=== PATIENT | female | born 1945 | race Caucasian/White ===

== ENCOUNTER → 2021-10-28 | Outpatient (CLI) | payer MEDICARE, OTHER, SELFPAY ==
[2021-10-28 17:30] LABS: BNP,B-Type NATRIURETIC PEPTIDE 205.4 pg/mL (0-100)
== END | disposition home or self-care (01) ==
PROVIDERS: PCP Internal Medicine; Visit Provider Internal Medicine Cardiovascular Disease
DX: R06.02 Shortness of breath (principal)
CPT/HCPCS: 36415; 83880

== ENCOUNTER → 2021-10-30 | Outpatient (CLI) | payer MEDICARE, OTHER, SELFPAY ==
[2021-10-30 11:59] LABS: Absolute Lymphocyte Count 1.84 X10^3/uL (0.83-4.51); Absolute Neutrophil Count 3.1 X10^3/uL (2.0-7.7); Basophil# 0.08 X10^3/uL; Basophil% 1.2 % (0-1); Eosinophils% 7.8 % (0-5); Hematocrit 38.8 % (37-47); Hemoglobin 12.4 g/dL (12.0-15.0); Lymphocyte # 1.84 X10^3/ul (0.83-4.51); Lymphocyte % 28.7 % (19-41); Mean Corpuscular Hgb 31.2 pg (27.0-32.0); Mean Corpuscular Volume 97.5 fL (81-99); NRBC Flagged by Analyzer 0 % (0-5); Neutrophil # 3.07 X10^3/uL (2.7-7.7); Platelet Count 303 K/mm3 (150-450); RBC Distribution Width CV 12.9 % (11.6-14.6); RBC Distribution Width SD 46.5 fl (35.1-43.9); Red Blood Count 3.98 M/mm3 (4.2-5.4); White Blood Count 6.4 K/mm3 (4.4-11.0)
[2021-10-30 12:16] LABS: Vitamin B12 332 pg/mL (211-911)
[2021-10-30 12:31] LABS: ALB/GLOB Ratio 0.8 RATIO (0.9-2.4); AST(SGOT) 20 U/L (15-37); Alanine Aminotransfer ALT/SGPT 22 U/L (13-56); Albumin, Serum 3.3 g/dL (3.2-5.0); Alkaline Phosphatase 83 U/L (45-117); Anion Gap 7 (5-15); BUN 22 mg/dL (7-18); BUN/Creat Ratio 20.2 RATIO (10-20); Calcium,Total 8.9 mg/dL (8.5-10.1); Chloride 107 mmol/L (98-107); Cholesterol 183 mg/dL (200); Creatinine, Serum 1.09 mg/dL (0.55-1.02); EST Glomerular Filtration Rate 52 mL/min (>60); Est Glom Filt Rate - Afr Amer 63 mL/min (>60); Glucose 90 mg/dL (74-106); High Density Lipoprotein 68 mg/dL; Potassium 4.2 mmol/L (3.5-5.1); Protein, Total 7.3 g/dL (6.4-8.2); Sodium Level 139 mmol/L (136-145); Thyroid Stim Hormone (TSH) 1.85 uIU/mL (0.358-3.74); Triglycerides 81 mg/dL; Very Low Density Lipoprotein 16 mg/dL (5-40)
== END | disposition home or self-care (01) ==
LOC: BIMLAB 09:25
PROVIDERS: PCP Internal Medicine; Referring Provider Internal Medicine; Visit Provider Internal Medicine
DX: E03.9 Hypothyroidism, unspecified (principal); E53.8 Deficiency of other specified B group vitamins
CPT/HCPCS: 36415; 80053; 80061; 82607; 84443; 85025

== ENCOUNTER → 2021-11-02 | Outpatient (CLI) | payer MEDICARE, OTHER, SELFPAY | END | disposition home or self-care (01) | LOC: PSN 08:59 | PROVIDERS: PCP Internal Medicine; Referring Provider Internal Medicine Cardiovascular Disease; Visit Provider Internal Medicine Cardiovascular Disease | DX: R06.02 Shortness of breath (principal); I47.1 Supraventricular tachycardia | CPT/HCPCS: 93225; 93226 ==

== ENCOUNTER → 2021-11-10 | Outpatient (CLI) | payer MEDICARE, OTHER, SELFPAY ==
--- NOTE | 2021-11-10 17:19 | STRESSREP ---
Stress Test Report Pharmacologic myocardial perfusion stress test. 76-year-old lady with a history of chest pain. Stress protocol: Resting EKG demonstrates normal sinus rhythm with a rate of 71 bpm normal intervals are noted. 0.4 mg of regadenoson was infused per usual protocol followed by rapid venous and flush injection continuous EKG monitoring was performed. The maximum heart rate attained was 96 bpm which was 66% of max impacted heart rate. The maximum workload attained was 1 metabolic equivalent. At rest there were no ST or T wave changes noted to suggest ischemia and at peak exercise nonspecific ST changes were noted. The above did not meet the criteria for ischemia. The final blood pressure is 122/84 mmHg. The resting blood pressure was 132/86 mmHg. Myocardial perfusion protocol. 14.8 mCi of technetium 99m sestamibi was injected at rest. 0.4 mg of regadenoson was infused per usual protocol. At peak infusion 44.7 mCi of technetium 99m sestamibi was injected stress images were obtained stress and rest images were reconstructed and compared in the short axis vertical long and horizontal long axis. Gated images were also obtained. Perfusion SPECT analysis: Review of the stress images demonstrate normal uptake of tracer noted in all areas of the myocardium. The resting images similar demonstrate normal uptake of tracer noted in all areas of the myocardium. No areas of reversibility are noted to suggest ischemia and no previous infarct is noted. Gated SPECT analysis: The gated ejection fraction is 64%. Conclusion: Normal pharmacologic myocardial perfusion stress test. Preserved ejection fraction.
== END | disposition home or self-care (01) ==
LOC: CVS 06:10
PROVIDERS: PCP Internal Medicine; Visit Provider Internal Medicine Cardiovascular Disease
DX: R06.02 Shortness of breath (principal)
CPT/HCPCS: 78452; 93017; A9500; A4216; J2785

== ENCOUNTER → 2021-11-16 | Outpatient (CLI) | payer MEDICARE, OTHER, SELFPAY ==
--- NOTE | 2021-11-16 15:26 | RAD_ITS ---
STUDY: XR Elbow 2 Views REASON FOR EXAM: Female, 76 years old. PAIN History: fall with injuries Technologist Notes FELL FEW DAYS AGO AND CAUGHT HER SELF, PT COULD NOT MOVE ELBOW MUCH, BEST IMAGES POSSIBLE pain TECHNIQUE: XR Elbow 2 Views LEFT COMPARISON: None. FINDINGS: Normal visualized humerus, radius and ulna. Normal radiocapitellar and ulnotrochlear articulations. Anterior humeral line and radiocapitellar line are preserved. Positive fat pad sign, suggesting a radiographically occult fracture of the elbow. RAD/Elbow 2 Views IMPRESSION: Positive fat pad sign, suggesting a radiographically occult fracture of the elbow. Electronically Signed: Castro Priest MD at 18:33 EDT ,
--- NOTE | 2021-11-16 15:26 | RAD_ITS ---
EXAM: XR RIGHT FINGERS, 2 OR MORE VIEWS CLINICAL INDICATION: fall with injuries pain TECHNIQUE: Frontal, lateral and oblique views of the fingers of the right hand. This report was created using [employer] report generation technology. COMPARISON: None. FINDINGS: BONES/JOINTS: There is a comminuted fracture of the midshaft of the 1st metacarpal bone. There is degenerative arthrosis of the carpometacarpal articulation of the thumb. No sclerotic or destructive changes observed. SOFT TISSUES: Unremarkable. No soft tissue swelling or gas. No radiopaque foreign body. RAD/Finger(s) Min 2 Views IMPRESSION: There is a comminuted fracture of the midshaft of the 1st metacarpal bone. Electronically Signed: Castro Priest MD at 17:25 EDT Reading Location ID and State: [facility] / [place] , Service support ,
--- NOTE | 2021-11-16 15:40 | RAD_ITS ---
STUDY: X-RAY - UNILATERAL RIBS ( LEFT ) REASON FOR EXAM: Female, 76 years old. fall with injuries TECHNIQUE: 4 view(s) of the ribs. COMPARISON: None. FINDINGS: Normal visualized ribs without a demonstrated fracture. Small left pleural effusion and left lower lobe atelectasis. Acute impacted comminuted fracture of left humeral head and neck RAD/Ribs Unil 2V No CXR IMPRESSION: No evidence for acute fracture left rib cage. There is a small left pleural effusion and left lower lobe atelectasis There is an acute impacted comminuted fracture of left humeral head and neck Electronically Signed: Matty Fleming MD at 16:21 EDT ,
== END | disposition home or self-care (01) ==
LOC: RAD 15:25
PROVIDERS: PCP Internal Medicine; Referring Provider Nurse Practitioner Adult Health; Visit Provider Nurse Practitioner Adult Health
DX: S62.241A Displaced fracture of shaft of first metacarpal bone, right hand, initial encounter for closed fracture (principal); S42.342A Displaced spiral fracture of shaft of humerus, left arm, initial encounter for closed fracture; W19.XXXA Unspecified fall, initial encounter; Y92.009 Unspecified place in unspecified non-institutional (private) residence as the place of occurrence of the external cause; M25.522 Pain in left elbow
CPT/HCPCS: 71100; 73070; 73140

== ENCOUNTER → 2021-12-01 | Outpatient (REF) | payer SELFPAY ==
[2021-12-01 09:12] LABS: Absolute Lymphocyte Count 1.64 X10^3/uL (0.83-4.51); Absolute Neutrophil Count 9.7 X10^3/uL (2.0-7.7); Basophil# 0.05 X10^3/uL; Basophil% 0.4 % (0-1); Eosinophil# 0.25 X10^3/uL; Eosinophils% 1.8 % (0-5); Hematocrit 36.9 % (37-47); Hemoglobin 11.8 g/dL (12.0-15.0); Lymphocyte # 1.64 X10^3/ul (0.83-4.51); Lymphocyte % 11.7 % (19-41); Mean Corpuscular Volume 96.9 fL (81-99); Mean Platelet Vol. 11.7 fl (6.2-12.0); Monocyte# 2.25 X10^3/uL; Monocyte% 16.1 % (0-10); NRBC Flagged by Analyzer 0 % (0-5); Neutrophil # 9.74 X10^3/uL (2.7-7.7); Neutrophil % 69.4 % (47-70); POSITIVE DIFFERENTIAL YES; Platelet Count 303 K/mm3 (150-450); RBC Distribution Width CV 13.8 % (11.6-14.6); RBC Distribution Width SD 48.8 fl (35.1-43.9); Red Blood Count 3.81 M/mm3 (4.2-5.4)
[2021-12-01 09:13] LABS: Differential Indicated SCAN CRITERIA MET
[2021-12-02 12:57] LABS: Pathologist Review Reviewed
== END | disposition home or self-care (01) ==
LOC: OLS.WHLTCC 04:00
PROVIDERS: PCP Internal Medicine; Referring Provider Family Medicine; Visit Provider Family Medicine
DX: S42.295D Other nondisplaced fracture of upper end of left humerus, subsequent encounter for fracture with routine healing (principal); S62.291D Other fracture of first metacarpal bone, right hand, subsequent encounter for fracture with routine healing; D50.9 Iron deficiency anemia, unspecified
CPT/HCPCS: 36415; 85025

== ENCOUNTER → 2021-12-07 | Outpatient (CLI) | payer MEDICARE, OTHER, SELFPAY ==
--- NOTE | 2021-12-07 09:02 | ECHOD_ITS ---
Reason For Study: DYSPNEA/SOB Procedure This was a 2D Doppler, Color Flow transthoracic echocardiogram. The study was technically difficult. Contrast injection was performed. Exam performed in department. Left Ventricle Normal LV size. Left ventricular systolic function is normal. The estimated ejection fraction is 55 %. No regional wall motion abnormalities noted. Right Ventricle Normal RV size. Normal systolic function. Atria Normal left atrium. Normal right atrium. Mitral Valve Normal mitral valve. Tricuspid Valve Normal tricuspid valve. Aortic Valve Normal aortic valve. Pulmonic Valve The pulmonic valve is not well visualized. Great Vessels Normal aortic root. The pulmonary artery is normal size. Normal inferior vena cava. Pericardium/Pleural No pericardial effusion. Medication 22 gauge I.V. with prn adaptor inserted into right arm. Diluted definity 3ml given slow IV push to enhance endocardial definition. MMode/2D Measurements & Calculations LAV(MOD-sp4): 91.8 ml LA dimension(2D): 5.0 cm LA A4 area: 28.0 cm2 RA A4 area: 20.4 cm2 Doppler Measurements & Calculations Ao V2 max: 101.7 cm/sec LV V1 max: 99.2 cm/sec MR max carlos: 514.9 cm/sec Ao max P.2 mmHg LV V1 max P.0 mmHg MR max P.0 mmHg ECHO/Echo Complete W/ Contrast Interpretation Summary Normal LV size. Left ventricular systolic function is normal. The estimated ejection fraction is 55 %. Contrast injection was performed. The study was technically difficult. Ordering Physician: Flo East Referring Physician: Flo East Performed By: Jenny Contreras RCS
== END | disposition home or self-care (01) ==
LOC: CVS 09:01
PROVIDERS: PCP Internal Medicine; Referring Provider Internal Medicine Cardiovascular Disease; Visit Provider Internal Medicine Cardiovascular Disease
DX: I47.1 Supraventricular tachycardia (principal); R06.02 Shortness of breath
CPT/HCPCS: 93306; Q9957; A4216; C8929

== ENCOUNTER → 2021-12-09 | Outpatient (REF) | payer SELFPAY ==
[2021-12-09 09:24] LABS: Hematocrit 38.7 % (37-47); Hemoglobin 12.2 g/dL (12.0-15.0); Mean Corp Hgb Conc 31.5 g/dL (32-36); Mean Corpuscular Hgb 30.5 pg (27.0-32.0); Mean Corpuscular Volume 96.8 fL (81-99); Mean Platelet Vol. 10.8 fl (6.2-12.0); Platelet Count 447 K/mm3 (150-450); RBC Distribution Width CV 13.2 % (11.6-14.6); RBC Distribution Width SD 47.6 fl (35.1-43.9)
[2021-12-09 09:42] LABS: Anion Gap 4 (5-15); BUN 16 mg/dL (7-18); BUN/Creat Ratio 18.4 RATIO (10-20); Calcium,Total 9.4 mg/dL (8.5-10.1); Chloride 107 mmol/L (98-107); Creatinine, Serum 0.87 mg/dL (0.55-1.02); EST Glomerular Filtration Rate 67 mL/min (>60); Est Glom Filt Rate - Afr Amer 81 mL/min (>60); Glucose 90 mg/dL (74-106); Potassium 3.9 mmol/L (3.5-5.1); Sodium Level 139 mmol/L (136-145)
== END | disposition home or self-care (01) ==
LOC: OLS.WHLTCC 05:35
PROVIDERS: PCP Internal Medicine; Visit Provider Family Medicine
DX: S42.295D Other nondisplaced fracture of upper end of left humerus, subsequent encounter for fracture with routine healing (principal); S42.291D Other displaced fracture of upper end of right humerus, subsequent encounter for fracture with routine healing; D50.9 Iron deficiency anemia, unspecified
CPT/HCPCS: 36415; 80048; 85027

== ENCOUNTER → 2022-03-11 | Outpatient (CLI) | payer MEDICARE, OTHER, SELFPAY ==
--- NOTE | 2022-03-11 15:59 | BD_ITS ---
STUDY: DUAL ENERGY X-RAY ABSORPTIOMETRY / DXA REASON FOR EXAM: Female, 76 years old. [id number] TECHNIQUE: Bone Mineral Density (BMD) measurements of lumbar spine and bilateral hips were obtained. COMPARISON: None. FINDINGS: Lumbar Spine (L1-L4): g/cm2 (1.056) / T-score (0.4) / Z-score (2.8) Findings are suggestive of normal bone density with a low fracture risk. Left Femur Total: g/cm2 (0.749) / T-score (-1.6) / Z-score (0.3) Left Femoral Neck: g/cm2 (0.501) / T-score (-3.1) / Z-score (-1.0) Right Femur Total: g/cm2 (0.743) / T-score (-1.6) / Z-score (0.2) Right Femoral Neck: g/cm2 (0.588) / T-score (-2.4) / Z-score (-0.2) BD/Dexa Bone Density Study IMPRESSION: The patient is considered osteoporotic as outlined below according to World Harshil Organization (WHO) criteria with a high fracture risk. Reference Information: The T-score is the number of standard deviations above or below the standard which is normal for young adults at their peak bone mineral density. The World Health Organization (WHO) interprets the T-scores as follows: Above -1 Normal bone density Between -1 and -2.5 Osteopenia Equal to / or below -2.5 Osteoporosis As a practical clinical guideline, osteopenia may be graded as follows: Mild -1 through -1.5 Moderate -1.6 through -2.0 Severe -2.1 through -2.4 The Z-score is the number of standard deviations above or below age-matched controls. A Z-score of less than -1.5 would be considered abnormal. References: 1. NIH Osteoporosis and Related Bone Diseases www osteo.org 2. International Society for Clinical Densitometry www iscd.org 3. National Osteoporosis Foundation www nof.org Electronically Signed: Bret Quinn MD at 9:21 EDT ,
== END | disposition home or self-care (01) ==
LOC: OPBD 15:51
PROVIDERS: PCP Internal Medicine; Visit Provider Internal Medicine
DX: M81.0 Age-related osteoporosis without current pathological fracture (principal); Z78.0 Asymptomatic menopausal state
CPT/HCPCS: 77080

== ENCOUNTER → 2022-04-27 | Outpatient (CLI) | payer MEDICARE, OTHER, SELFPAY ==
[2022-04-27 17:24] LABS: Vitamin D,25 Hydroxy 20.2 ng/mL
== END | disposition home or self-care (01) ==
PROVIDERS: PCP Internal Medicine; Referring Provider Internal Medicine; Visit Provider Internal Medicine
DX: E55.9 Vitamin D deficiency, unspecified (principal)
CPT/HCPCS: 36415; 82306

== ENCOUNTER → 2022-12-17 | Outpatient (CLI) | payer MEDICARE, OTHER, SELFPAY ==
[2022-12-17 12:32] LABS: Absolute Neutrophil Count 4.4 X10^3/uL (2.0-7.7); Basophil% 1.2 % (0-1); Eosinophil# 0.72 X10^3/uL; Eosinophils% 8.9 % (0-5); Hematocrit 40.4 % (37-47); Hemoglobin 12.9 g/dL (12.0-15.0); Lymphocyte % 23.6 % (19-41); Mean Corp Hgb Conc 31.9 g/dL (32-36); Mean Corpuscular Hgb 32.2 pg (27.0-32.0); Mean Corpuscular Volume 100.7 fL (81-99); Mean Platelet Vol. 10.7 fl (6.2-12.0); Monocyte# 0.89 X10^3/uL; Monocyte% 11.1 % (0-10); NRBC Flagged by Analyzer 0 % (0-5); Neutrophil # 4.42 X10^3/uL (2.7-7.7); Platelet Count 372 K/mm3 (150-450); RBC Distribution Width SD 48.7 fl (35.1-43.9); Red Blood Count 4.01 M/mm3 (4.2-5.4); White Blood Count 8.1 K/mm3 (4.4-11.0)
[2022-12-17 14:54] LABS: ALB/GLOB Ratio 0.7 RATIO (0.9-2.4); AST(SGOT) 18 U/L (15-37); Alanine Aminotransfer ALT/SGPT 21 U/L (13-56); Albumin, Serum 3.1 g/dL (3.2-5.0); Alkaline Phosphatase 80 U/L (45-117); Anion Gap 5 (5-15); BUN 21 mg/dL (7-18); BUN/Creat Ratio 17.2 RATIO (10-20); Chloride 106 mmol/L (98-107); Cholesterol 212 mg/dL (200); Creatinine, Serum 1.22 mg/dL (0.55-1.02); EST Glomerular Filtration Rate 45 mL/min (>60); Est Glom Filt Rate - Afr Amer 55 mL/min (>60); Globulin 4.4 g/dL (2.2-4.2); Glucose 93 mg/dL (74-106); High Density Lipoprotein 65 mg/dL; Potassium 4.9 mmol/L (3.5-5.1); Protein, Total 7.5 g/dL (6.4-8.2); Sodium Level 137 mmol/L (136-145); Thyroid Stim Hormone (TSH) 6.36 uIU/mL (0.358-3.74); Triglycerides 120 mg/dL; Very Low Density Lipoprotein 24 mg/dL (5-40)
[2022-12-17 14:55] LABS: Vitamin D,25 Hydroxy 45.1 ng/mL
== END | disposition home or self-care (01) ==
LOC: BIMLAB 10:11
PROVIDERS: PCP Internal Medicine; Referring Provider Internal Medicine; Visit Provider Internal Medicine
DX: M81.0 Age-related osteoporosis without current pathological fracture (principal); E03.9 Hypothyroidism, unspecified; E66.9 Obesity, unspecified
CPT/HCPCS: 36415; 80053; 80061; 82306; 84443; 85025

== ENCOUNTER → 2023-01-21 | Outpatient (CLI) | payer MEDICARE, OTHER, SELFPAY ==
[2023-01-21 17:48] LABS: Anion Gap 2 (5-15); BUN 22 mg/dL (7-18); BUN/Creat Ratio 20.2 RATIO (10-20); Calcium,Total 8.7 mg/dL (8.5-10.1); Chloride 110 mmol/L (98-107); Creatinine, Serum 1.09 mg/dL (0.55-1.02); EST Glomerular Filtration Rate 52 mL/min (>60); Est Glom Filt Rate - Afr Amer 63 mL/min (>60); Glucose 81 mg/dL (74-106); Potassium 4.1 mmol/L (3.5-5.1); Sodium Level 140 mmol/L (136-145); Thyroid Stim Hormone (TSH) 6.01 uIU/mL (0.358-3.74)
== END | disposition home or self-care (01) ==
LOC: MTLAB 15:33
PROVIDERS: PCP Internal Medicine; Referring Provider Internal Medicine; Visit Provider Internal Medicine
DX: E03.9 Hypothyroidism, unspecified (principal)
CPT/HCPCS: 36415; 80048; 84443

== ENCOUNTER → 2023-02-23 | Outpatient (CLI) | payer MEDICARE, OTHER, SELFPAY ==
[2023-02-23 15:12] LABS: Absolute Lymphocyte Count 2.11 X10^3/uL (0.83-4.51); Absolute Neutrophil Count 4.5 X10^3/uL (2.0-7.7); Basophil# 0.07 X10^3/uL; Basophil% 0.8 % (0-1); Eosinophil# 0.71 X10^3/uL; Eosinophils% 8.6 % (0-5); Hematocrit 40.8 % (37-47); Hemoglobin 12.5 g/dL (12.0-15.0); Lymphocyte # 2.11 X10^3/ul (0.83-4.51); Lymphocyte % 25.5 % (19-41); Mean Corp Hgb Conc 30.6 g/dL (32-36); Mean Corpuscular Hgb 31.6 pg (27.0-32.0); Mean Corpuscular Volume 103.3 fL (81-99); Mean Platelet Vol. 11.1 fl (6.2-12.0); Monocyte% 10.9 % (0-10); NRBC Flagged by Analyzer 0 % (0-5); Neutrophil # 4.46 X10^3/uL (2.7-7.7); Neutrophil % 54.1 % (47-70); Platelet Count 347 K/mm3 (150-450); RBC Distribution Width CV 12.7 % (11.6-14.6); RBC Distribution Width SD 48.8 fl (35.1-43.9); Red Blood Count 3.95 M/mm3 (4.2-5.4); White Blood Count 8.3 K/mm3 (4.4-11.0)
[2023-02-23 16:01] LABS: ALB/GLOB Ratio 0.7 RATIO (0.9-2.4); AST(SGOT) 17 U/L (15-37); Alanine Aminotransfer ALT/SGPT 22 U/L (13-56); Albumin, Serum 3.1 g/dL (3.2-5.0); Alkaline Phosphatase 78 U/L (45-117); Anion Gap 4 (5-15); BUN 27 mg/dL (7-18); BUN/Creat Ratio 20.3 RATIO (10-20); Calcium,Total 8.8 mg/dL (8.5-10.1); Chloride 109 mmol/L (98-107); Creatinine, Serum 1.33 mg/dL (0.55-1.02); EST Glomerular Filtration Rate 41 mL/min (>60); Est Glom Filt Rate - Afr Amer 50 mL/min (>60); Globulin 4.4 g/dL (2.2-4.2); Glucose 108 mg/dL (74-106); Potassium 4.5 mmol/L (3.5-5.1); Protein, Total 7.5 g/dL (6.4-8.2); Sodium Level 140 mmol/L (136-145); T4 Free Direct 1.81 ng/dL (0.76-1.46); Thyroid Stim Hormone (TSH) 0.56 uIU/mL (0.358-3.74)
[2023-02-23 19:57] LABS: T3 Total - Triiodothyronine 0.94 ng/mL (0.6-1.81); Vitamin B12 360 pg/mL (211-911)
== END | disposition home or self-care (01) ==
LOC: BIMLAB 13:50
PROVIDERS: PCP Internal Medicine; Referring Provider Internal Medicine; Visit Provider Internal Medicine
DX: E03.9 Hypothyroidism, unspecified (principal); R53.83 Other fatigue; R20.0 Anesthesia of skin
CPT/HCPCS: 36415; 80053; 82607; 84439; 84443; 84480; 85025

== ENCOUNTER → 2023-02-24 | Outpatient (CLI) | payer MEDICARE, OTHER, SELFPAY ==
--- NOTE | 2023-02-24 10:42 | RAD_ITS ---
INDICATION: leg pain, swelling EXAMINATION/TECHNIQUE: X-RAY - LEFT XR Knee 3 Views COMPARISON: FINDINGS: SOFT TISSUES: No soft tissue swelling or gas. No radiopaque foreign body. BONES/JOINTS: No acute fracture or subluxation.. There are 3 orthopedic screws noted through the proximal tibia. Degenerative spurring at the femorotibial and patellofemoral compartments. Diffuse joint space narrowing at the femorotibial compartments. Generalized osteopenia. RAD/Knee 3 Views IMPRESSION: Degenerative and postsurgical changes. Generalized osteopenia. Electronically Signed: Sarath Valdez DO at 17:31 EDT Reading Location ID and State: [facility] / [place] Tel [phone], Service support ,
== END | disposition home or self-care (01) ==
LOC: MTLAB 10:41
PROVIDERS: PCP Internal Medicine; Referring Provider Internal Medicine; Visit Provider Internal Medicine
DX: M79.605 Pain in left leg (principal)
CPT/HCPCS: 73562

== ENCOUNTER → 2023-03-11 | Outpatient (CLI) | payer MEDICARE, OTHER, SELFPAY ==
--- NOTE | 2023-03-11 15:03 | VDLE_ITS ---
Reason For Study: Left leg swelling Procedure LEFT This is a venous duplex using B-mode, color GSV is normal. flow and spectral Doppler. CFV is compressible, spontaneous, phasic, Exam performed in department. competent, and demonstrates normal Technically difficult due to patient augmentation. bodyhabitus and edema. FV is compressible, spontaneous, phasic, A preliminary report was called and/or faxed competent and demonstrates normal to Dr. Mathews. augmentation. POP V is compressible, spontaneous, phasic, competent and demonstrates normal augmentation. T/P Trunk is compressible. PTV is compressible. LT PerV is compressible. VL/Venous Duplex US, Unilateral Interpretation Summary Deep veins of the left lower extremity are patent and compressible segmentally. There is no evidence of left lower extremity deep vein thrombosis. The left great saphenous vein nael ears patent and compressible segmentally. Ordering Physician: Anneliese Mathews Referring Physician: Calista Yeh Performed By: Romy Joshi RVT
[2023-03-11 16:55] LABS: Thyroid Stim Hormone (TSH) 0.53 uIU/mL (0.358-3.74)
== END | disposition home or self-care (01) ==
PROVIDERS: PCP Internal Medicine; Visit Provider Internal Medicine
DX: M79.89 Other specified soft tissue disorders (principal); E03.9 Hypothyroidism, unspecified
CPT/HCPCS: 36415; 82746; 84443; 93971

== ENCOUNTER 2023-11-01 12:52 | Outpatient (RCR) | payer MEDICARE, OTHER, SELFPAY ==
--- NOTE | 2023-11-08 08:00 | HP.OTEVAL_ITS ---
Patient's Visit Information Visit Information Visit Information: BERNARD ENG is a 78 year old F, referred to Occupational Therapy by HENRRY Dodson, with a diagnosis of venous insufficiency BLE, lymphedema. Date of Evaluation: 11/01/23 Occupational Therapist: Saima Harper, ERMA/Ronna, CHT Subjective Subjective: This 78 year old female was seen for OT eval with dx of LE lymphedema. Family with pt today. pt states she has had swelling for about a year and a half- sleeps in recliner ( lift chair) due to other health issues. Pt states she has noticed legs are getting firm and the swelling does not change- pt would like to know what she ca n do to decrease edema of her legs. Lymphedema (Circumferential Measure) Mid-foot: right 23.5cm left 23.5cm Ankle: right 27cm left 28cm Lower calf: right 28cm left 40.5cm Largest calf: right 51cm left 55cm Below knee: right 51cm left 56cm Lower Exremity Comments: pt demo with firmness of bilateral LE indication of stage II lymphedema Goals Goal: Patient will demonstrate a 20% reduction in edema by discharge: Yes Goal: Patient will demonstrate adequate knowledge of self-massage by the end of the second week.: Yes Goal: Patient will demonstrate adequate knowledge of skin care and precautions by the end of the first week.: Yes Goal: Patient will demonstrate adequate knowledge of therapeutic exercises by discharge.: Yes Goal: Patient will select an appropriate compression garment and demonstrate adequate knowledge of correct donning technique, care and wearing schedule by discharge.: Yes Goal: Patient will voice understanding of need to replace compression garment every four to six months by discharge.: Yes Rehabilitation General Assessment: pt demo with symptoms of BLE lymphedema and demo need of skilled OT services 3-4 visits to ed. pt on life long mtg. of edema. Today therapist ed. pt on skin care, precautions and use of compression devices (velcro closure) as compression socks are difficult for pt to put on. Therapist also ed. pt on movement and lymph ex to assist in circulation of fluid. pt demo understanding and agree to POC. Rehabilitation Potential: Questionable Anticipated Interventions Anticipated Interventions: Education re Diagnosis, Education re Life-long lymphedema Management, Education re Skin Care and Precautions, Education re Self Massage Techniques, Education re Correct Donning Tech,Care&Wearing Sched Comp Garments, Caregiver Training and Home Program Visit Plan TEXT: Thank you for the opportunity to evaluate your patient. For Medicare and Medicare HMO plans, please review the plan of care and approve it. It will need to be FAXED BACK to us at [phone] for Medicare purposes. Please let me know if there are questions or concerns regarding this plan of care. Physician Signature: Date:
== END 2023-11-01 19:00 | disposition home or self-care (01) ==
LOC: OT 12:52
PROVIDERS: PCP Internal Medicine; Referring Provider Nurse Practitioner; Visit Provider Nurse Practitioner
DX: I87.2 Venous insufficiency (chronic) (peripheral) (principal); I89.0 Lymphedema, not elsewhere classified
CPT/HCPCS: 97166; 97530

== ENCOUNTER → 2023-12-07 | Outpatient (CLI) | payer MEDICARE, OTHER, SELFPAY ==
[2023-12-07 12:18] LABS: Absolute Lymphocyte Count 1.99 X10^3/uL (0.83-4.51); Absolute Neutrophil Count 4.2 X10^3/uL (2.0-7.7); Basophil# 0.09 X10^3/uL; Basophil% 1.1 % (0-1); Eosinophil# 0.68 X10^3/uL; Eosinophils% 8.7 % (0-5); Hematocrit 40.4 % (37-47); Hemoglobin 12.8 g/dL (12.0-15.0); Lymphocyte # 1.99 X10^3/ul (0.83-4.51); Lymphocyte % 25.4 % (19-41); Mean Corp Hgb Conc 31.7 g/dL (32-36); Mean Corpuscular Hgb 32.2 pg (27.0-32.0); Mean Corpuscular Volume 101.5 fL (81-99); Mean Platelet Vol. 10.8 fl (6.2-12.0); Monocyte# 0.91 X10^3/uL; Monocyte% 11.6 % (0-10); NRBC Flagged by Analyzer 0 % (0-5); Neutrophil # 4.15 X10^3/uL (2.7-7.7); Neutrophil % 52.8 % (47-70); Platelet Count 356 K/mm3 (150-450); RBC Distribution Width CV 13.2 % (11.6-14.6); Red Blood Count 3.98 M/mm3 (4.2-5.4); White Blood Count 7.9 K/mm3 (4.4-11.0)
[2023-12-07 12:21] LABS: Vitamin D,25 Hydroxy 47.4 ng/mL
[2023-12-07 12:45] LABS: ALB/GLOB Ratio 0.6 RATIO (0.9-2.4); AST(SGOT) 20 U/L (15-37); Alanine Aminotransfer ALT/SGPT 21 U/L (13-56); Albumin, Serum 3.1 g/dL (3.2-5.0); Alkaline Phosphatase 66 U/L (45-117); Anion Gap 7 (5-15); BUN 20 mg/dL (7-18); BUN/Creat Ratio 15.7 RATIO (10-20); Calcium,Total 9.2 mg/dL (8.5-10.1); Chloride 108 mmol/L (98-107); Cholesterol 190 mg/dL (200); Creatinine, Serum 1.27 mg/dL (0.55-1.02); EST Glomerular Filtration Rate 43 mL/min (>60); Est Glom Filt Rate - Afr Amer 52 mL/min (>60); Globulin 4.8 g/dL (2.2-4.2); Glucose 88 mg/dL (74-106); High Density Lipoprotein 53 mg/dL; Potassium 4.5 mmol/L (3.5-5.1); Protein, Total 7.9 g/dL (6.4-8.2); Sodium Level 139 mmol/L (136-145); Triglycerides 152 mg/dL; Very Low Density Lipoprotein 30 mg/dL (5-40)
== END | disposition home or self-care (01) ==
LOC: BIMLAB 09:12
PROVIDERS: PCP Internal Medicine; Referring Provider Internal Medicine; Visit Provider Internal Medicine
DX: E03.9 Hypothyroidism, unspecified (principal); F41.9 Anxiety disorder, unspecified; F32.A Depression, unspecified; M85.80 Other specified disorders of bone density and structure, unspecified site
CPT/HCPCS: 80053; 80061; 82306; 84443; 85025

== ENCOUNTER → 2024-03-09 | Outpatient (CLI) | payer MEDICARE, OTHER, SELFPAY ==
--- NOTE | 2024-03-09 14:14 | RAD_ITS ---
STUDY: X-RAY CHEST REASON FOR EXAM: Female, 78 years old. Cough TECHNIQUE: PA and lateral views of the chest. COMPARISON: None. FINDINGS: The lungs are clear and expanded. There is no demonstrated pleural abnormality. Normal size heart. Normal mediastinum and elida. Normal visualized pulmonary arteries. There is atherosclerotic tortuosity of the aortic arch and descending thoracic aorta. There are degenerative changes of the visualized thoracic spine. Normal visualized ribs, clavicles, and shoulders. There is no demonstrated abnormality of the visualized soft tissue structures of the upper abdomen. RAD/Chest PA and Lateral IMPRESSION: No acute abnormality is seen. Electronically Signed: Bret Quinn MD at 15:32 EDT ,
== END | disposition home or self-care (01) ==
LOC: MTRAD 14:14
PROVIDERS: PCP Internal Medicine; Referring Provider Physician Assistant Surgical; Visit Provider Physician Assistant Surgical
DX: J40 Bronchitis, not specified as acute or chronic (principal)
CPT/HCPCS: 71046

== ENCOUNTER 2024-04-18 17:25 | Inpatient (IN) | payer MEDICARE, OTHER, SELFPAY ==
[2024-04-18] VITALS (24 sets, daily range): BP systolic 98–173; BP diastolic 70–135; PULSE 64–81; RESP 8–65; TEMP 36.4–36.6; O2SAT 17–100; BMI 65.3
--- NOTE | 2024-04-18 17:38 | ED.VIS.DYS ---
HPI History of Present Illness Chief Complaint: Shortness of Breath Informant: patient and family Onset/Context/Timing Onset: Yesterday Context: gradual Timing: Continuous Quality: Positive for Dyspnea on exertion and Orthopnea Worsened by: Exertion and Lying flat Relieved by: Nothing Associated Symptoms fever and subjective; Negative for cough, rhinorrhea, post nasal drip, ear pain, sore throat, chills, sweats, clear sputum, white sputum, yellow sputum or green sputum Chest Pain: Positive for None Narrative Narrative: Patient presents with shortness of breath that began yesterday. Patient states it is gradually getting worse. Patient states her breathing is worse with any exertion. Family states the patient has been sleeping in a recliner. Patient states her breathing is worse with laying flat. Patient admits to some subjective fevers. Family states that she has been having worsening leg swelling and itching. Patient denies any cough. Patient denies any nausea or vomiting. Patient denies any chest pain. [facility] Medical History Anxiety and depression Incontinence Debility Chronic left shoulder pain Osteoporosis Multiple premature ventricular complexes Venous insufficiency of both lower extremities ADD (attention deficit disorder) Chronic back pain Obesity Anemia Shoulder pain with history of repair of rotator cuff Tibial plateau fracture, left Keloid of skin Ptosis of both eyelids History of fracture due to fall Fracture of left upper limb History of tibial fracture Vitamin B 12 deficiency Iron deficiency anemia Other specified disorders of bone density and structure, unspecified site Allergic rhinitis ADHD History of fractured kneecap Uses hearing aid Hearing impairment History of migraine headaches Home Medications ?Medication ?Instructions ?Recorded ?Last Taken ?Type aspirin 81 mg tablet,delayed 81 mg PO DAILY 10/06/21 Unknown History release (Adult Low Dose Aspirin) duloxetine 60 mg capsule,delayed 60 mg PO DAILY 10/06/21 Unknown History release (Cymbalta) [id number] acid 0.4 1 tab PO DAILY 10/06/21 Unknown History mg-lycopene 300 mcg-lutein 250 mcg tablet (Centrum Silver) acetaminophen 500 mg tablet 1,000 mg PO TID PRN fever or pain 10/23/21 Unknown History celecoxib 200 mg capsule (Celebrex) 200 mg PO DAILY pain 02/23/23 Unknown History calcium carbonate (Antacid 400 mg PO DAILY 04/01/23 Unknown History (calcium carbonate)) moa deidrae #2 ea 04/01/23 Unknown Rx arm brace #1 ea 04/13/23 Unknown Rx arm brace #1 ea 04/15/23 Unknown Rx ergocalciferol (vitamin D2) 1,250 1,250 mcg PO QWEEK #20 caps 09/20/23 Unknown Rx mcg (50,000 unit) capsule semaglutide (weight loss) 0.25 0.25 mg (0.5 mL) subcut QWEEK #2 mL 12/07/23 Unknown Rx mg/0.5 mL subcutaneous pen injector sumatriptan succinate 25 mg tablet See Rx Instructions PO .COMPLEX 02/02/24 Unknown Rx (Imitrex) #14 tabs alendronate 70 mg tablet 70 mg PO QWEEK #14 tabs 02/28/24 Unknown Rx levothyroxine 200 mcg tablet 200 mcg PO DAILY #14 tabs 04/18/24 Unknown Rx (Synthroid) Allergy/AdvReac Type Severity Reaction Status Date / Time No Known Allergies Allergy Verified 04/18/24 17:26 Family History Father Sudden cardiac , Onset Age: 59 Alcoholism Mother Type II diabetes mellitus Lymphoma Arthritis Brother Sudden cardiac , Onset Age: 49 Grandmother Type II diabetes mellitus Grandmother Type II diabetes mellitus Surgical History Hx of cholecystectomy History of left knee surgery History of arthroscopy of right knee History of gastric bypass Social History adopted: No household members: none housing: assisted living facility number of children: 4 current occupational status: retired current occupational exposures/hazards: No history of recent travel: No sexually active: No Smoking Status: Never smoker alcohol intake: current alcohol intake frequency: holidays/special occasions only details: One drink per year. substance use type: does not use well-balanced diet: daily or most days caffeine: Yes Type: coffee Number of servings: 2 eating out: 1-3 times/week during the past year weight has: increased > 10 lbs what type of physical activity do you participate in: none seatbelt use: always do you feel safe at home: Yes ROS ROS ED Constitutional Constitutional ED: Reports fever(s); Denies chills Eyes Eyes: Denies blurry vision or change in vision ENT ENT ED: Denies rhinorrhea or sore throat Cardiovascular Cardiovascular: Denies chest pain or palpitations Respiratory/Chest Respiratory/Chest: Reports dyspnea; Denies cough Gastrointestinal Gastrointestinal: Denies nausea or vomiting Genitourinary Genitourinary ED: Denies dysuria or hematuria Musculoskeletal Musculoskeletal: Denies back pain or neck pain Integumentary Denies abscess or rash Neurologic Neurologic: Reports headache(s); Denies weakness Allergic/Immunologic Allergic/Immunologic ED: Denies mouth swelling or urticaria EXAM Physical Exam Const Vital Signs: 04/18/24 17:26 04/18/24 18:19 04/18/24 18:28 Temperature 98 F 97.5 F L Temperature Source Oral Oral Pulse Rate 81 75 Respiratory Rate 16 65 H Respiratory Effort Normal Blood Pressure 171/70 H 98/75 Blood Pressure Mean 103 82 Pulse Ox 99 17 Oxygen Delivery Method Room Air Room Air Room Air 04/18/24 18:51 04/18/24 19:00 04/18/24 19:00 Temperature 97.5 F L Temperature Source Oral Pulse Rate 66 75 74 Respiratory Rate 17 22 H 15 Respiratory Effort Blood Pressure 162/91 H 173/93 H Blood Pressure Mean 114 116 Pulse Ox 100 97 100 Oxygen Delivery Method Room Air 04/18/24 19:15 04/18/24 19:15 04/18/24 19:15 Temperature Temperature Source Pulse Rate 66 66 66 Respiratory Rate 23 H 23 H 23 H Respiratory Effort Blood Pressure 162/91 H 162/91 H Blood Pressure Mean 102 102 Pulse Ox 99 99 99 Oxygen Delivery Method 04/18/24 19:30 04/18/24 19:45 04/18/24 20:00 Temperature 97.6 F L Temperature Source Oral Pulse Rate 64 68 75 Respiratory Rate 15 8 L 18 Respiratory Effort Blood Pressure 119/75 Blood Pressure Mean 89 Pulse Ox 100 100 96 Oxygen Delivery Method Room Air 04/18/24 20:00 04/18/24 20:09 04/18/24 20:15 Temperature Temperature Source Pulse Rate 67 75 79 Respiratory Rate 19 H 15 19 H Respiratory Effort Blood Pressure 119/83 H Blood Pressure Mean 91 Pulse Ox 98 97 98 Oxygen Delivery Method 04/18/24 20:30 04/18/24 20:45 04/18/24 20:45 Temperature 97.6 F L Temperature Source Oral Pulse Rate 78 76 73 Respiratory Rate 14 16 17 Respiratory Effort Blood Pressure 119/83 H Blood Pressure Mean 95 Pulse Ox 97 99 98 Oxygen Delivery Method Room Air 04/18/24 21:00 04/18/24 21:15 04/18/24 21:30 Temperature Temperature Source Pulse Rate 69 71 72 Respiratory Rate 10 L 12 17 Respiratory Effort Blood Pressure 139/77 H Blood Pressure Mean 95 Pulse Ox 92 94 95 Oxygen Delivery Method 04/18/24 21:45 04/18/24 22:00 04/18/24 22:15 Temperature Temperature Source Pulse Rate 70 80 72 Respiratory Rate 15 18 16 Respiratory Effort Blood Pressure 155/80 H Blood Pressure Mean 102 Pulse Ox 96 96 94 Oxygen Delivery Method 04/18/24 22:30 04/18/24 22:45 04/18/24 23:00 Temperature Temperature Source Pulse Rate 76 72 Respiratory Rate 19 H 16 Respiratory Effort Blood Pressure 160/135 H Blood Pressure Mean 145 Pulse Ox 95 96 Oxygen Delivery Method 04/18/24 23:15 04/19/24 00:25 Temperature 97.7 F L Temperature Source Pulse Rate 74 75 Respiratory Rate 19 H 18 Respiratory Effort Blood Pressure 158/80 H Blood Pressure Mean 106 Pulse Ox 95 94 Oxygen Delivery Method Positive well nourished and well developed General Appearance ED: well developed and NAD HEENT Reports moist mucous membranes atraumatic Neck supple, no meningeal signs and no JVD Resp normal respiratory effort Auscultation: diminished lung sounds diffuse Cardio regular rate and regular rhythm Rhythm: abnormal rhythm ectopic beats GI non-tender and non-distended Palpation: soft Extremity General Extremety ED: Yes edema and tenderness General Extremity: edema Neuro oriented x3, CN's II-XII intact bilaterally and no sensory deficits noted Dileep Coma Scale: document GCS findings Spontaneous Obeys Commands Oriented 15 Sensorium / Orientation: alert Motor Exam: strength 5/5 throughout Psych mental status grossly normal Skin Skin Narrative: There is some mild erythema over the lower leg bilaterally. There is minimal warmth. There is no discharge or drainage. MDM MDM MDM Narrative Medical decision making narrative: Differential diagnosis includes cardiac dysrhythmia, cardiac ischemia, congestive heart failure, pneumonia, pulmonary embolism, acute kidney injury, peripheral edema, and anxiety. EKG will be obtained to assess for cardiac dysrhythmia and cardiac ischemia. Chest x-ray will be obtained to assess for pneumonia and pneumothorax. CBC will be obtained to assess for leukocytosis and anemia. PT was INR and PTT will be obtained to assess for coagulopathy. Basic metabolic profile will be obtained to assess for electrolyte abnormality and renal function. High-sensitivity troponin will be obtained to assess for cardiac ischemia. D-dimer will be obtained to assess for pulmonary embolism. BNP will be obtained to assess for congestive heart failure. Lab Data Attestation: I reviewed the patient's lab results. Lab results narrative: CBC was reviewed. There is a mild anemia with a hemoglobin of 11.4 and hematocrit of 35.3. Basic metabolic profile was reviewed. Creatinine was slightly elevated at 1.25 and BUN was slightly elevated at 22. The remainder was essentially within normal limits. PT with INR and PTT were reviewed and were within normal limits. D-dimer was reviewed and was elevated at 2.53. High-sensitivity troponin was reviewed with normal at 10. BNP was reviewed and was slightly elevated at 264.6 Labs: Laboratory Results - last 24 hr 04/18/24 17:55 WBC 9.6 RBC 3.53 L Hgb 11.4 L Hct 35.3 L MCV 100.0 H MCH 32.3 H MCHC 32.3 RDW Std Deviation 51.5 H RDW Coeff of Stephanie 13.9 Plt Count 343 MPV 10.2 Immature Gran % (Auto) 0.500 Neut % (Auto) 54.4 Lymph % (Auto) 23.1 [place] % (Auto) 10.3 H Eos % (Auto) 10.8 H Baso % (Auto) 0.9 Absolute Neuts (auto) 5.2 Absolute Lymphs (auto) 2.22 Nucleated RBC % 0 PT 13.3 INR 1.0 APTT 25.2 D-Dimer Quant (PE/DVT) 2.53 H* Sodium 139 Potassium 4.5 Chloride 111 H Carbon Dioxide 23.0 Anion Gap 6 BUN 22 H Creatinine 1.25 H Estim Creat Clear Calc 57.60 Est GFR (MDRD) Af Amer 53 L Est GFR (MDRD) Non-Af 44 L BUN/Creatinine Ratio 17.6 Glucose 93 Calcium 9.2 Troponin I High Sens 10 B-Natriuretic Peptide 264.6 H Radiography Chest X-Ray - ED: 2 View, Read by ED Physician, Read by Radiologist and Cardiomegaly Diagnostic Testing: Clinical Impression(s) from Imaging Studies Chest X-Ray 04/18/24 18:20 IMPRESSION: 1. Cardiac silhouette upper limit of normal and central vascular congestion noted without krista congestive failure. 2. No focal infiltrate or consolidation. Electronically Signed: Anthony Rubio MD at 18:56 EST , Chest CTA 04/18/24 19:16 IMPRESSION: undefined PA and lateral chest x-ray was obtained. There are 2 views. On my independent interpretation, lung powell show increased vascular congestion in the perihilar areas bilaterally but there is no overt congestive heart failure. There is no acute infiltrate. There is normal cardiac silhouette. Bony thorax is normal. Radiologist also interpreted the x-ray and agrees. Because of the elevated D-dimer, CTA of the chest was obtained. There is no pulmonary embolism or aortic dissection noted. There is normal appearance of the heart and pericardium. There is no other acute abnormality. This was interpreted by the radiologist and was also independently reviewed by myself. EKG Initial EKG: Attestation: I personally reviewed and interpreted this EKG as follows: Interpretation: Sinus Rhythm (With occasional PACs with a rate of 65) and No Acute Injury Pattern Comments: EKG was obtained. On my independent interpretation, it showed a normal sinus rhythm with occasional PACs with a rate of 65. IA interval, QRS interval, and QTc intervals were all normal. [place] was normal. There are no acute ST or T wave changes. Prior EKG tracings: available for review Prior: Unchanged (From stress test from 11/10/2021) Management Discussion w/another healthcare provider: Hospitalist Treatment and Re-Evaluation :: Patient was given a dose of morphine and Zofran here. Patient was given a dose of Lasix. Patient had a urine output of approximately 500 cc of clear yellow urine. Patient was given nitroglycerin paste. Patient was ambulated in the emergency department and her pulse oximeter dropped to 88% and her respiratory rate went up to 30. Because of this, I recommended admission to the hospital. Case was discussed with the hospitalist. He will admit the patient to PCU for observation. Patient and family understood and were agreeable with the plan. All questions were answered. Discharge Plan Triage Chief Complaint: Shortness of Breath ED Provider: Prakash Felipe Dx/Rx/DC Orders Clinical Impression: Lymphedema, Anemia, Dyspnea on exertion, Generalized weakness Prescriptions: No Action duloxetine [Cymbalta] 60 mg capsule,delayed release(DR/EC) 60 mg PO DAILY aspirin [Adult Low Dose Aspirin] 81 mg tablet,delayed release (DR/EC) 81 mg PO DAILY Centrum Silver 0.4 mg-300 mcg- 250 mcg tablet 1 tab PO DAILY acetaminophen 500 mg tablet 1,000 mg PO TID PRN (Reason: fever or pain) calcium carbonate [Antacid (calcium carbonate)] 200 mg calcium (500 mg) tablet,chewable 400 mg PO DAILY celecoxib [Celebrex] 200 mg capsule 200 mg PO DAILY (DME) juxta lite See Rx Instructions .Route .MEDSUPPLY Qty: 2 3RF Rx Instructions: 20 -30 mmHg semaglutide (weight loss) 0.25 mg/0.5 mL pen injector 0.25 mg subcut QWEEK Qty: 2 0RF Rx Instructions: administer weeks 1 through 4 of therapy (DME) arm brace Misc See Rx Instructions .Route Qty: 1 0RF Rx Instructions: left wrist brace, wear at night (DME) arm brace Misc See Rx Instructions .Route Qty: 1 0RF Rx Instructions: Right wrist brace, wear at night ergocalciferol (vitamin D2) 1,250 mcg (50,000 unit) capsule 1,250 mcg PO QWEEK Qty: 20 1RF sumatriptan succinate [Imitrex] 25 mg tablet See Rx Instructions PO .COMPLEX Qty: 14 1RF Rx Instructions: take 1 tab at onset of headache; if no relief may repeat 1 tab after at least 2 hrs; max = 4 tabs/24 hr PO alendronate 70 mg tablet 70 mg PO QWEEK Qty: 14 1RF levothyroxine [Synthroid] 200 mcg tablet 200 mcg PO DAILY Qty: 14 0RF Rx Instructions: Take 200 mcg daily on 6 days and 300 mcg on 1 day Primary Care Provider: Calista Yeh Referrals: Calista Yeh MD [Primary Care Provider] - Print Language: [place] Disposition Disposition: Acute Care [facility]
--- NOTE | 2024-04-18 17:49 | EKG12_ITS ---
Test Reason : SOB Blood Pressure : */* mmHG Vent. Rate : 65 BPM Atrial Rate : 65 BPM P-R Int : 142 ms QRS Dur : 80 ms QT Int : 432 ms P-R-T Axes : 74 35 65 degrees QTcB Int : 449 ms Sinus rhythm with Premature atrial complexes Otherwise normal ECG Confirmed by CARON BAILEY ([id number]), legal editor KAMLA KAUR ([id number]) on 04/20/2024 11:56:14 AM Referred By: Prakash Felipe Confirmed By: CARON BAILEY
[2024-04-18 18:04] LABS: Absolute Lymphocyte Count 2.22 X10^3/uL (0.83-4.51); Absolute Neutrophil Count 5.2 X10^3/uL (2.0-7.7); Basophil# 0.09 X10^3/uL; Basophil% 0.9 % (0-1); Eosinophil# 1.04 X10^3/uL; Eosinophils% 10.8 % (0-5); Hematocrit 35.3 % (37-47); Hemoglobin 11.4 g/dL (12.0-15.0); Lymphocyte # 2.22 X10^3/ul (0.83-4.51); Lymphocyte % 23.1 % (19-41); Mean Corp Hgb Conc 32.3 g/dL (32-36); Mean Corpuscular Hgb 32.3 pg (27.0-32.0); Mean Platelet Vol. 10.2 fl (6.2-12.0); Monocyte# 0.99 X10^3/uL; Monocyte% 10.3 % (0-10); NRBC Flagged by Analyzer 0 % (0-5); Neutrophil % 54.4 % (47-70); Platelet Count 343 K/mm3 (150-450); RBC Distribution Width CV 13.9 % (11.6-14.6); RBC Distribution Width SD 51.5 fl (35.1-43.9); Red Blood Count 3.53 M/mm3 (4.2-5.4); White Blood Count 9.6 K/mm3 (4.4-11.0)
--- NOTE | 2024-04-18 18:20 | RAD_ITS ---
INDICATION: Dyspnea EXAMINATION/TECHNIQUE: X-RAY - XR Chest 2 Views COMPARISON: 03/09/2024 FINDINGS: LIFE-SUPPORT AND LINES: 1. Cardiac silhouette is upper limit of normal, there is vascular congestion without krista interstitial edema. HEART AND VESSELS: The cardiac silhouette, pulmonary vasculature have normal appearance. No evidence of congestive failure. LUNGS AND PLEURAL SPACES: Lungs are clear. No focal infiltrate, consolidation or effusions. No evidence of pneumothorax. No pulmonary mass is noted. MEDIASTINUM AND HILAR REGIONS: No masses adenopathy noted. No areas of calcification. Visualized upper airway is normal in position. BONY ELEMENTS: No acute bony changes noted. RAD/Chest PA and Lateral IMPRESSION: 1. Cardiac silhouette upper limit of normal and central vascular congestion noted without krista congestive failure. 2. No focal infiltrate or consolidation. Electronically Signed: Anthony Rubio MD at 18:56 EST ,
[2024-04-18 18:26] LABS: Anion Gap 6 (5-15); BUN 22 mg/dL (7-18); BUN/Creat Ratio 17.6 RATIO (10-20); Calcium,Total 9.2 mg/dL (8.5-10.1); Chloride 111 mmol/L (98-107); Creatinine, Serum 1.25 mg/dL (0.55-1.02); EST Glomerular Filtration Rate 44 mL/min (>60); Est Glom Filt Rate - Afr Amer 53 mL/min (>60); Glucose 93 mg/dL (74-106); Potassium 4.5 mmol/L (3.5-5.1); Sodium Level 139 mmol/L (136-145); Troponin-I HS 10 pg/mL (3.0-54.0)
[2024-04-18 18:27] LABS: Prothrombin Time (Protime)PT. 13.3 SECONDS (11.7-14.9)
[2024-04-18 18:28] LABS: Partial Thromboplast Time 25.2 Seconds (24.1-36.2)
[2024-04-18 18:35] LABS: BNP,B-Type NATRIURETIC PEPTIDE 264.6 pg/mL (0-100)
[2024-04-18 19:11] LABS: D-Dimer Quantitative (DVT/PE) 2.53 FEU/ug/m (0.27-0.49)
--- NOTE | 2024-04-18 19:16 | CT_ITS ---
STUDY: CTA CHEST REASON FOR EXAM: Female, 78 years old. Elevated D-dimer RADIATION DOSAGE (If Supplied By Facility): CTDIvol = ( 12.66 ) mGy, DLP = ( 501.86 ) mGycm TECHNIQUE: The examination was performed with the intravenous administration of IV 100mL [id number]. Post-processing of the angiographic images was performed, with multiplanar reformation and 3D reconstruction. Individualized dose optimization techniques were used for this CT. COMPARISON: Chest radiograph of the same date FINDINGS: Tubes and lines: 1. No life-support noted. CTA: PULMONARY ARTERIES: There is normal configuration and contrast opacification of pulmonary outflow tract, main pulmonary arteries, segmental and intersegmental pulmonary arteries bilaterally without evidence of intraluminal filling defects. AORTIC ARCH: The aortic arch and descending aorta have normal configuration. No evidence of dissection or aneurysmal dilatation. HEART: Cardiac contour is normal. No evidence pericardial effusion. Scattered coronary vascular calcifications are present. CT CHEST: LUNGS: [Minimal atelectasis at the lung bases.. No mass. No consolidation. PLEURAL SPACES: Bibasilar pleural thickening and trace pleural fluid.. MEDIASTINUM AND LYMPH NODES: Unremarkable. No significant adenopathy. Hilar hernia is present. BONES: Mild thoracic spondylosis with marginal osteophyte formation, no acute bony changes or acutely acquired canal stenosis. ABDOMEN: Postoperative changes of prior gastric sleeve. Other: None IMPRESSIONS: 1. No CTA evidence of pulmonary embolism. 2. No CTA evidence of aortic aneurysm or dissection 3. Normal CT appearance of the heart and pericardium. There are scattered coronary vascular calcifications. 4. Minimal atelectasis at the lung bases. 5. Hiatal hernia and evidence of a gastric sleeve procedure. Electronically Signed: Anthony Rubio MD at 20:14 EST , CT/CTA Chest W/WO Contrast IMPRESSION: undefined
[2024-04-18] MEDS: Morphine 4 MG/ML Syringe IV (20:44)
[2024-04-18] MEDS: Ondansetron 4 MG/2 ML Vial IV (20:53)
[2024-04-18] MEDS: Furosemide 40 MG/4 ML Vial IV (21:42)
[2024-04-19] VITALS (15 sets, daily range): BP systolic 121–160; BP diastolic 60–135; PULSE 69–86; RESP 11–25; TEMP 36.4–36.8; O2SAT 92–100; BMI 59.4
[2024-04-19] MEDS: Ondansetron 4 MG/2 ML Vial IV ×2 (00:29→10:50)
[2024-04-19] MEDS: Nitroglycerin Oint 1 INCH PACKET TD (00:29)
--- NOTE | 2024-04-19 00:30 | HP.PCM.HOS_ITS ---
[facility] - General General Date of Admission: 04/19/24 Date of Service: 04/19/24 Chief Complaint: SOB and increasing LE Swelling. [facility] Narrative BERNARD ENG, is a 78 F with a past medical history of hypothyroidism, super morbid obesity; with BMI of 65.3 this admission on Semaglutide for weight loss until recently, history gastric sleeve, PAM; on CPAP, hiatal hernia, history of B12 deficiency, chronic lower extremity lymphedema with chronic venous insufficiency, chronically elevated BNP; baseline level ~200 pg/mL noted last admission, history of PVCs (2021), KYRA, depression with anxiety; on duloxetine, history of ADD/ADHD, history of migraine headaches; on as needed sumatriptan, history of urinary incontinence, history of tibial plateau fracture, history of patellar fracture, history of Left upper limb fracture, history of arthroscopy of the Right knee, history of Left knee surgery, history of cholecystectomy, osteoporosis; on alendronate and OA; with chronic Left shoulder/back pain and chronic debility on celecoxib currently residing at assisted living facility who presents to [facility] ER complaining of shortness of breath and increasing bilateral lower extremity edema. Ms. Eng reports her symptoms began yesterday with a gradual-onset of progressively worsening dyspnea on exertion and orthopnea. She noticed that her shortness of breath is recently been made worse by lying flat so she has been sleeping in her recliner. She also admits to subjective fever and her family informed the ER physician that she has been having worsening leg swelling and itching. She also admits to runny nose and sore throat with suspected viral URI. She denies associated chills, nausea, vomiting, diarrhea, constipation, cough or chest pain but she does admit to recent migraine headache. In the ER she was noted to have an elevated D-dimer of 2.53 followed by a CTA of the chest that was negative for PE or other acute pathologic changes in the thoracic cavity along with a mildly elevated BNP of 264.6 pg/mL present on admission concerning for possible mild AE CHF complicated by recently acquired and relatively poorly tolerated viral URI with oxygen saturation decreasing to 88% with ambulation likely due to super morbid obesity with 'pickwickian' phenotype in the setting of progressively worsening chronic debility and she was then admitted to the PCU under observation status for ongoing care for status expected to be less than 2 midnights. [facility] Medical History Anxiety and depression Incontinence Debility Chronic left shoulder pain Osteoporosis Multiple premature ventricular complexes Venous insufficiency of both lower extremities ADD (attention deficit disorder) Chronic back pain Obesity Anemia Shoulder pain with history of repair of rotator cuff Tibial plateau fracture, left Keloid of skin Ptosis of both eyelids History of fracture due to fall Fracture of left upper limb History of tibial fracture Vitamin B 12 deficiency Iron deficiency anemia Other specified disorders of bone density and structure, unspecified site Allergic rhinitis ADHD History of fractured kneecap Uses hearing aid Hearing impairment History of migraine headaches Home Medications ?Medication ?Instructions ?Recorded ?Last Taken ?Type aspirin 81 mg tablet,delayed 81 mg PO DAILY 10/06/21 Unknown History release (Adult Low Dose Aspirin) duloxetine 60 mg capsule,delayed 60 mg PO DAILY 10/06/21 Unknown History release (Cymbalta) mwviyrou-wyu-rccph acid 0.4 1 tab PO DAILY 10/06/21 Unknown History mg-lycopene 300 mcg-lutein 250 mcg tablet (Centrum Silver) acetaminophen 500 mg tablet 1,000 mg PO TID PRN fever or pain 10/23/21 Unknown History celecoxib 200 mg capsule (Celebrex) 200 mg PO DAILY pain 02/23/23 Unknown History calcium carbonate (Antacid 400 mg PO DAILY 04/01/23 Unknown History (calcium carbonate)) juxta lite #2 ea 04/01/23 Unknown Rx arm brace #1 ea 04/13/23 Unknown Rx arm brace #1 ea 04/15/23 Unknown Rx ergocalciferol (vitamin D2) 1,250 1,250 mcg PO QWEEK #20 caps 09/20/23 Unknown Rx mcg (50,000 unit) capsule semaglutide (weight loss) 0.25 0.25 mg (0.5 mL) subcut QWEEK #2 mL 12/07/23 Unknown Rx mg/0.5 mL subcutaneous pen injector sumatriptan succinate 25 mg tablet See Rx Instructions PO .COMPLEX 02/02/24 Unknown Rx (Imitrex) #14 tabs alendronate 70 mg tablet 70 mg PO QWEEK #14 tabs 02/28/24 Unknown Rx levothyroxine 200 mcg tablet 200 mcg PO DAILY #14 tabs 04/18/24 Unknown Rx (Synthroid) Allergy/AdvReac Type Severity Reaction Status Date / Time No Known Allergies Allergy Verified 04/18/24 17:26 Family History Father Sudden cardiac , Onset Age: 59 Alcoholism Mother Type II diabetes mellitus Lymphoma Arthritis Brother Sudden cardiac , Onset Age: 49 Grandmother Type II diabetes mellitus Grandmother Type II diabetes mellitus Surgical History Hx of cholecystectomy History of left knee surgery History of arthroscopy of right knee History of gastric bypass Social History adopted: No household members: none housing: assisted living facility number of children: 4 current occupational status: retired current occupational exposures/hazards: No history of recent travel: No sexually active: No Smoking Status: Never smoker alcohol intake: current alcohol intake frequency: holidays/special occasions only details: One drink per year. substance use type: does not use well-balanced diet: daily or most days caffeine: Yes Type: coffee Number of servings: 2 eating out: 1-3 times/week during the past year weight has: increased > 10 lbs what type of physical activity do you participate in: none seatbelt use: always do you feel safe at home: Yes ROS ROS Narrative Review of Systems: Constitutional: Patient admits to subjective fever but denies chills. Eyes: Patient denies changes in vision or discharge from eyes. ENT: Patient admits to runny nose and sore throat but she denies ear pain. Resp: Patient admits to dyspnea on exertion but she denies cough. CV: Patient denies chest pain, palpitations or heart racing. GI: Patient denies abdominal pain, nausea, vomiting, diarrhea or constipation. patient admits to urinary incontinence but she denies dysuria or hematuria. MSK: Patient has noted no significant change in her chronic back pain. She denies neck pain. Skin: Patient admits to mild erythema in the setting of her chronic venous stasis on her lower extremities but she denies rash or abscess. Psych: Patient denies symptoms of uncontrolled depression or anxiety. Neuro: Patient admits to migraine headache recently but she denies paresthesias or focal neurologic deficits. Allergy: Patient denies lip swelling, tongue swelling or urticaria. Hematology: Patient denies easy bleeding or easy bruisability. Endocrinology: Patient denies polyuria, polydipsia or polyphagia. 14 point review of systems otherwise negative except for positives noted above in HPI. Vital Signs Vital Signs Vital Signs: 04/18/24 17:26 04/18/24 18:19 04/18/24 18:28 Temperature 98 F 97.5 F L Temperature Source Oral Oral Pulse Rate 81 75 Respiratory Rate 16 65 H Respiratory Effort Normal Blood Pressure 171/70 H 98/75 Blood Pressure Mean 103 82 Pulse Ox 99 17 Oxygen Delivery Method Room Air Room Air Room Air 04/18/24 18:51 04/18/24 19:00 04/18/24 19:00 Temperature 97.5 F L Temperature Source Oral Pulse Rate 66 75 74 Respiratory Rate 17 22 H 15 Respiratory Effort Blood Pressure 162/91 H 173/93 H Blood Pressure Mean 114 116 Pulse Ox 100 97 100 Oxygen Delivery Method Room Air 04/18/24 19:15 04/18/24 19:15 04/18/24 19:15 Temperature Temperature Source Pulse Rate 66 66 66 Respiratory Rate 23 H 23 H 23 H Respiratory Effort Blood Pressure 162/91 H 162/91 H Blood Pressure Mean 102 102 Pulse Ox 99 99 99 Oxygen Delivery Method 04/18/24 19:30 04/18/24 19:45 04/18/24 20:00 Temperature 97.6 F L Temperature Source Oral Pulse Rate 64 68 75 Respiratory Rate 15 8 L 18 Respiratory Effort Blood Pressure 119/75 Blood Pressure Mean 89 Pulse Ox 100 100 96 Oxygen Delivery Method Room Air 04/18/24 20:00 04/18/24 20:09 04/18/24 20:15 Temperature Temperature Source Pulse Rate 67 75 79 Respiratory Rate 19 H 15 19 H Respiratory Effort Blood Pressure 119/83 H Blood Pressure Mean 91 Pulse Ox 98 97 98 Oxygen Delivery Method 04/18/24 20:30 04/18/24 20:45 04/18/24 20:45 Temperature 97.6 F L Temperature Source Oral Pulse Rate 78 76 73 Respiratory Rate 14 16 17 Respiratory Effort Blood Pressure 119/83 H Blood Pressure Mean 95 Pulse Ox 97 99 98 Oxygen Delivery Method Room Air 04/18/24 21:00 04/18/24 21:15 04/18/24 21:30 Temperature Temperature Source Pulse Rate 69 71 72 Respiratory Rate 10 L 12 17 Respiratory Effort Blood Pressure 139/77 H Blood Pressure Mean 95 Pulse Ox 92 94 95 Oxygen Delivery Method 04/18/24 21:45 04/18/24 22:00 04/18/24 22:15 Temperature Temperature Source Pulse Rate 70 80 72 Respiratory Rate 15 18 16 Respiratory Effort Blood Pressure 155/80 H Blood Pressure Mean 102 Pulse Ox 96 96 94 Oxygen Delivery Method 04/18/24 22:30 04/18/24 22:45 04/18/24 23:00 Temperature Temperature Source Pulse Rate 76 72 Respiratory Rate 19 H 16 Respiratory Effort Blood Pressure 160/135 H Blood Pressure Mean 145 Pulse Ox 95 96 Oxygen Delivery Method 04/18/24 23:15 04/19/24 00:25 Temperature 97.7 F L Temperature Source Pulse Rate 74 75 Respiratory Rate 19 H 18 Respiratory Effort Blood Pressure 158/80 H Blood Pressure Mean 106 Pulse Ox 95 94 Oxygen Delivery Method Weight Weight: 368 lb 13.334 oz Body Mass Index (BMI) 65.3 Physical Exam Const alert, oriented x3 and no apparent distress Constitutional Narrative: Patient is morbidly obese and does not appear short of breath at rest. General Appearance: cooperative HEENT normocephalic, head/scalp atraumatic and moist oral mucous membranes HEENT Narrative: Patient wears hearing aids. Eyes PERRL, EOMs intact bilaterally and conjunctivae normal Neck no lymphadenopathy and supple Resp Resp Narrative: Diminished lung sounds throughout. Cardio regular rate and regular rhythm GI normal to inspection, nondistended, normoactive bowel sounds, soft to palpation, non-tender and non-distended GI Narrative: Morbidly obese. Extremity Extremity Narrative: Patient has evidence of severe lower extremity lymphedema with chronic venous stasis changes and mild erythema with generalized tenderness to palpation with no obvious wound or acute infection. Skin Skin Narrative: Patient has evidence of severe lower extremity lymphedema with chronic venous stasis changes and mild erythema with generalized tenderness to palpation with no obvious wound or acute infection. Neuro oriented x3, CN's II-XII intact bilaterally, moves all extremities and no focal motor deficits Sensorium / Orientation: awake, alert, oriented to person, oriented to place and oriented to time Speech: speech normal Psych affect normal Results Medical Records Data Attestation: I reviewed the patient's medical records Lab / Micro Data Attestation: I reviewed the patient's lab results. 04/18/24 17:55 04/18/24 17:55 Labs: Laboratory Results - last 24 hr 04/18/24 17:55: WBC 9.6, RBC 3.53 L, Hgb 11.4 L, Hct 35.3 L, MCV 100.0 H, MCH 32.3 H, MCHC 32.3, RDW Std Deviation 51.5 H, RDW Coeff of Stephanie 13.9, Plt Count 343, MPV 10.2, Immature Gran % (Auto) 0.500, Neut % (Auto) 54.4, Lymph % (Auto) 23.1, [place] % (Auto) 10.3 H, Eos % (Auto) 10.8 H, Baso % (Auto) 0.9, Absolute Neuts (auto) 5.2, Absolute Lymphs (auto) 2.22, Nucleated RBC % 0, PT 13.3, INR 1.0, APTT 25.2, D-Dimer Quant (PE/DVT) 2.53 H*, Sodium 139, Potassium 4.5, C hloride 111 H, Carbon Dioxide 23.0, Anion Gap 6, BUN 22 H, Creatinine 1.25 H, Estim Creat Clear Calc 57.60, Est GFR (MDRD) Af Amer 53 L, Est GFR (MDRD) Non-Af 44 L, BUN/Creatinine Ratio 17.6, Glucose 93, Calcium 9.2, Troponin I High Sens 10, B-Natriuretic Peptide 264.6 H Imaging Radiology Impression Chest X-Ray 04/18/24 18:20 IMPRESSION: 1. Cardiac silhouette upper limit of normal and central vascular congestion noted without krista congestive failure. 2. No focal infiltrate or consolidation. Electronically Signed: Anthony Rubio MD at 18:56 EST , Chest CTA 04/18/24 19:16 IMPRESSION: undefined Assessment & Plan Assessment/Plan (1) Lymphedema: (2) Dyspnea on exertion: (3) Generalized weakness: (4) Viral URI: (5) Morbid obesity with BMI of 60.0-69.9, adult: (6) Obstructive sleep apnea: (7) Venous insufficiency of both lower extremities: PLAN: Plan 1. Elevated D-dimer of 2.53 followed by a CTA of the chest that was negative for PE or other acute pathologic changes in the thoracic cavity - Admit to PCU under observation status. Doppler of bilateral LE's will be obtained in AM to evaluate for possible underlying DVT given her body habitus and increasingly poor mobility. Give Tylenol prn pain or fever. 2. Mildly elevated BNP of 264.6 pg/mL present on admission concerning for possible mild AE CHF (with a slight increase from her baseline of approximately 200 pg/mL) complicating #1 in the setting of known chronic lower extremity lymphedema with chronic venous insufficiency - CXR and CTA of the chest both negative for acute pathologic changes in the lungs. Patient was treated with Lasix and NTG in the ER with subsequent desaturation with mobility and current need for arrangement of supplemental oxygen to prevent recurrent hypoxia triggered by activity. Check echocardiogram in a.m. to evaluate LVEF and assess for signs of pulmonary hypertension. 3. Suspected Viral URI with recent development of runny nose and sore throat compounding #1 & #2 - Check respiratory micro panel to screen for virologic illness and placed on droplet precautions until testing confirmed negative. 4. Super morbid obesity; with BMI of 65.3 this admission on Semaglutide for weight loss with a history of previous gastric sleeve and PAM; on CPAP but with continued weight gain adding to the pathology of #1 - #3 - Weight loss will be recommended. Check TSH. Check B12 level with history of deficiency likely due to surgical alteration of bowel resulting in poor absorption of nutrients. Resume nocturnal CPAP as previous. 5. OA; with chronic Left shoulder/back pain and with chronic debility on celecoxib currently residing at assisted living facility now sleeping in a recliner due to worsening orthopnea adding to the medical complexity of #1 - #4 - PT/OT and Case Management to consult and treat on-rounds in the AM for further recommendations with help appreciated in advance. 6. Hypothyroidism - Resume Synthroid as previous and check TSH. 7. Depression with anxiety; on duloxetine - Maintain duloxetine regimen. 8. History of ADD/ADHD - Noted. 9. History of migraine headaches; on as needed sumatriptan - Continue prn sumatriptan as before. 10. Hiatal hernia - Stable as noted on CT this admission. 11. History of PVCs (2021) - Noted. 12. KYRA - Stable with hemoglobin of 11.4 g/dL present on admission. 13. History of urinary incontinence - Noted. 14. History of tibial plateau fracture - Noted. 15. History of patellar fracture - Noted. 16. History of Left upper limb fracture - Noted. 17. History of arthroscopy of the Right knee - Noted. 18. History of Left knee surgery - Noted. 19. History of cholecystectomy - Noted. 20. Osteoporosis; on alendronate - Restart alendronate as an outpatient. 21. DVT prophylaxis - Patient given a full-dose of Lovenox due to #1 until DVT definitively ruled out on Doppler in AM. Total time: Approximately (but not less than) 70 minutes. Charges/Coding Visit Charges OBSV E&M: 37098 Observ/hosp same date L2
--- OUTSIDE RECORDS SUMMARY | 2024-04-19 00:48 | XMS RPT_ITS | CCD ---
Author Organization [place] [employer] [facility] Results Test Name Value Interpretation Reference Range Facility .Auto Diffon 09-14-2021 Basophil, Absolute 0.00 10 3/mcL Normal 0.00-0.27 [facility] ([place] Comment on above: Performed By: #### C BC, ADIFF, ANEU, BMP, MG, GFR #### [address] [address] Basophils/100 WBC (Bld) 0.2 % Normal 0.0-2.5 [facility] ([place]) Comment on above: Performed By: #### C BC, ADIFF, ANEU, BMP, MG, GFR #### [address] [address] Eosinophil, Absolute 0.40 10 3/mcL Normal 0.00-0.65 [facility] ([place]) Comment on above: Performed By: #### C BC, ADIFF, ANEU, BMP, MG, GFR #### [address] [address] Eosinophils/100 WBC (Bld) 5.7 % Normal 0.0-6.0 [facility] ([place]) Comment on above: Performed By: #### C BC, ADIFF, ANEU, BMP, MG, GFR #### [address] [address] Lymphocyte, Absolute 2.20 10 3/mcL Normal 0.90-4.32 [facility] ([place]) Comment on above: Performed By: #### C BC, ADIFF, ANEU, BMP, MG, GFR #### [address] [address] Lymphocytes/100 WBC (Bld) 31.7 % Normal 20.0-40.0 [facility] ([place]) Comment on above: Performed By: #### C BC, ADIFF, ANEU, BMP, MG, GFR #### [address] [address] Monocyte, Absolute 0.90 10 3/mcL Normal 0.09-1.40 [facility] ([place] Comment on above: Performed By: #### C BC, ADIFF, ANEU, BMP, MG, GFR #### [address] [address] Monocytes/100 WBC (Bld) 13.3 % High 2.0-13.0 [facility] ([place] Comment on above: Performed By: #### C BC, ADIFF, ANEU, BMP, MG, GFR #### [address] [address] Neutrophils/100 WBC (Bld) 49.1 % Low 50.0-75.0 [facility] ([place] Comment on above: Performed By: #### C BC, ADIFF, ANEU, BMP, MG, GFR #### [address] [address] .GFRon 09-14-2021 GFR 60 ml/min/1.73sqm Normal [facility] ([place]) Comment on above: Result Comment: GFR Population mean for , Non- Americans Ages 20-29 = 116 mL/min/1.73 sq.m. Ages 30-39 = 107 mL/min/1.73 sq.m. Ages 40-49 = 99 mL/min/1.73 sq.m. Ages 50-59 = 93 mL/min/1.73 sq.m. Ages 60-69 = 85 mL/min/1.73 sq.m. Ages 70+ = 75 mL/min/1.73 sq.m. Chronic Kidney Disease: Less than 60 mL/min/1.73 square meters End Stage Renal Disease: Less than 15 mL/min/1.73 square meters Performed By: #### C BC, ADIFF, ANEU, BMP, MG, GFR #### [address] [address] GFR Non- 49 ml/min/1.73sqm Normal [facility] ([place]) Comment on above: Result Comment: GFR Population mean for , Non- Americans Ages 20-29 = 116 mL/min/1.73 sq.m. Ages 30-39 = 107 mL/min/1.73 sq.m. Ages 40-49 = 99 mL/min/1.73 sq.m. Ages 50-59 = 93 mL/min/1.73 sq.m. Ages 60-69 = 85 mL/min/1.73 sq.m. Ages 70+ = 75 mL/min/1.73 sq.m. Chronic Kidney Disease: Less than 60 mL/min/1.73 square meters End Stage Renal Disease: Less than 15 mL/min/1.73 square meters Performed By: #### C BC, ADIFF, ANEU, BMP, MG, GFR #### [place] [address] .NEUABSon 09-14-2021 Neutrophil, Absolute 3.30 10 3/mcL Normal 2.25-8.10 [facility] ([place]) Comment on above: Performed By: #### C BC, ADIFF, ANEU, BMP, MG, GFR #### [place] [address] CBCon 09-14-2021 Erythrocyte distribution width (RBC) [Ratio] 14.3 % Normal 11.5-15.5 [facility] ([place]) Comment on above: Performed By: #### C BC, ADIFF, ANEU, FERR, CMP, TSH, GFR, LIPID, HCV1 ####[place] [address] Hematocrit (Bld) [Volume fraction] 38.2 % Normal 34.0-46.0 [facility] ([place]) Comment on above: Performed By: #### C BC, ADIFF, ANEU, FERR, CMP, TSH, GFR, LIPID, HCV1 ####[place] [address] Hgb 13.0 G/dL Normal 12.0-16.0 [facility] ([place] Comment on above: Performed By: #### C BC, ADIFF, ANEU, FERR, CMP, TSH, GFR, LIPID, HCV1 ####[place] [address] MCH (RBC) [Entitic mass] 33.0 pg Normal 27.0-33.0 [facility] ([place] Comment on above: Performed By: #### C BC, ADIFF, ANEU, FERR, CMP, TSH, GFR, LIPID, HCV1 ####[place] [address] MCHC 33.9 G/dL Normal 32.0-36.0 [facility] ([place] Comment on above: Performed By: #### C BC, ADIFF, ANEU, FERR, CMP, TSH, GFR, LIPID, HCV1 ####[place] [address] MCV (RBC) [Entitic vol] 97.1 fL Normal 80.0-99.0 [facility] ([place]) Comment on above: Performed By: #### C BC, ADIFF, ANEU, FERR, CMP, TSH, GFR, LIPID, HCV1 ####[place] [address] Platelet 297 10 3/mcL Normal 150-450 [facility] ([place] Comment on above: Performed By: #### C BC, ADIFF, ANEU, FERR, CMP, TSH, GFR, LIPID, HCV1 ####[place] [address] Platelet mean volume (Bld) [Entitic vol] 10.1 fL Normal 6.6-10.5 [facility] ([place] Comment on above: Performed By: #### C BC, ADIFF, ANEU, FERR, CMP, TSH, GFR, LIPID, HCV1 ####[place] [address] RBC 3.93 10 6/mcL Low 4.10-5.30 [facility] ([place] Comment on above: Performed By: #### C BC, ADIFF, ANEU, FERR, CMP, TSH, GFR, LIPID, HCV1 ####[place] [address] WBC 6.80 10 3/mcL Normal 4.50-10.80 [facility] ([place] Comment on above: Performed By: #### C BC, ADIFF, ANEU, FERR, CMP, TSH, GFR, LIPID, HCV1 ####[place] [address] CMPon 09-14-2021 Albumin Level 3.8 G/dL Normal 3.2-4.8 [facility] ([place] Comment on above: Performed By: #### C BC, ADIFF, ANEU, BMP, MG, GFR #### [place] [address] Albumin/Globulin [Mass ratio] 1.3 {ratio} Normal 0.9-1.6 [facility] ([place] Comment on above: Performed By: #### C BC, ADIFF, ANEU, BMP, MG, GFR #### [place] [address] ALP [Catalytic activity/Vol] 96 U/L Normal 38-126 [facility] ([place] Comment on above: Performed By: #### C BC, ADIFF, ANEU, BMP, MG, GFR #### [place] [address] ALT [Catalytic activity/Vol] 15 U/L Normal 10-49 [facility] ([place] Comment on above: Performed By: #### C BC, ADIFF, ANEU, BMP, MG, GFR #### [place] [address] AST [Catalytic activity/Vol] 21 U/L Normal 8-34 [facility] ([place] Comment on above: Performed By: #### C BC, ADIFF, ANEU, BMP, MG, GFR #### [place] [address] Bili Total 0.50 mg/dL Normal 0.20-1.20 [facility] ([place] Comment on above: Result Comment: Use of this assay is not recommended for patients undergoing treatment with eltrombopag due to the potential for falsely elevated results. Performed By: #### C BC, ADIFF, ANEU, BMP, MG, GFR #### [address] [address] BUN/Creatinine Ratio 19.4 ratio Normal 10.0-22.0 [facility] ([place]) Comment on above: Performed By: #### C BC, ADIFF, ANEU, BMP, MG, GFR #### [address] [address] Calcium [Mass/Vol] 9.4 mg/dL Normal 8.7-10.4 [facility] ([place] Comment on above: Result Comment: No te - New Reference Range in effect 19 Performed By: #### C BC, ADIFF, ANEU, BMP, MG, GFR #### [address] [address] Chloride [Moles/Vol] 107 mmol/L Normal 98-110 [facility] ([place] Comment on above: Performed By: #### C BC, ADIFF, ANEU, BMP, MG, GFR #### [place] [id number] CO2 [Moles/Vol] 26 mmol/L Normal 22-32 [facility] ([place] Comment on above: Performed By: #### C BC, ADIFF, ANEU, BMP, MG, GFR #### [address] [address] Creatinine [Mass/Vol] 1.08 mg/dL Normal 0.50-1.20 [facility] ([place] Comment on above: Performed By: #### C BC, ADIFF, ANEU, BMP, MG, GFR #### [address] [address] Electrolyte Balance 8.0 mEq/L Normal 4.0-15.0 [facility] ([place] Comment on above: Performed By: #### C BC, ADIFF, ANEU, BMP, MG, GFR #### [address] [address] Globulin 3.0 G/dL Normal 1.5-3.8 [facility] ([place] Comment on above: Performed By: #### C BC, ADIFF, ANEU, BMP, MG, GFR #### [address] [address] Glucose [Mass/Vol] 86 mg/dL Normal 82-115 [facility] ([place] Comment on above: Performed By: #### C BC, ADIFF, ANEU, BMP, MG, GFR #### [address] [address] Potassium [Moles/Vol] 4.4 mmol/L Normal 3.5-5.0 [facility] ([place] Comment on above: Performed By: #### C BC, ADIFF, ANEU, BMP, MG, GFR #### [address] [address] Sodium [Moles/Vol] 141 mmol/L Normal 136-145 [facility] ([place] Comment on above: Performed By: #### C BC, ADIFF, ANEU, BMP, MG, GFR #### [place] [id number] Total Protein 6.8 G/dL Normal 5.7-8.2 [facility] ([place] Comment on above: Result Comment: No te - New Reference Range in effect 19 Performed By: #### C BC, ADIFF, ANEU, BMP, MG, GFR #### [address] [address] Urea nitrogen [Mass/Vol] 21.0 mg/dL Normal 8.0-22.0 [facility] ([place] Comment on above: Performed By: #### C BC, ADIFF, ANEU, BMP, MG, GFR #### [address] [address] Phillip 09-14-2021 Ferritin [Mass/Vol] 11.8 ng/mL Normal 8.0-252.0 [facility] ([place] Comment on above: Performed By: #### C BC, ADIFF, ANEU, BMP, MG, GFR #### [address] [address] HCVon 09-14-2021 Hep C Ab Non-Reactive Normal Non-Reactive [facility] ([place] Comment on above: Performed By: #### C BC, ADIFF, ANEU, BMP, MG, GFR #### [address] [address] Hep C Ab Int Normal [facility] ([place] Comment on above: Result Comment: Nonr eactive: Samples with a value < 0.80 are considered nonreactive (negative) for antibodies to HCV. A negative test result does not exclude the possibility of exposure to or infection with HCV. HCV antibodies may be undetectable in some stages of the infection and in some clinical conditions. See Interp Performed By: #### C BC, ADIFF, ANEU, BMP, MG, GFR #### [address] [address] LIPIDon 09-14-2021 Cholesterol [Mass/Vol] 197 mg/dL Normal 50-199 [facility] ([place] Comment on above: Result Comment: Chol esterol Reference Interval: Less than 200 Desirable 200-239 Borderline high risk 240 and above High risk Performed By: #### C BC, ADIFF, ANEU, BMP, MG, GFR #### [address] [address] Cholesterol in HDL [Mass/Vol] 80 mg/dL High 40-59 [facility] ([place] Comment on above: Performed By: #### C BC, ADIFF, ANEU, BMP, MG, GFR #### [address] [address] Cholesterol in LDL [Mass/Vol] 105 mg/dL Normal 0-129 [facility] ([place] Comment on above: Performed By: #### C BC, ADIFF, ANEU, BMP, MG, GFR #### [address] [address] Triglyceride [Mass/Vol] 62 mg/dL Normal 3-149 [facility] ([place] Comment on above: Performed By: #### C BC, ADIFF, ANEU, BMP, MG, GFR #### [address] [address] TSHon 09-14-2021 TSH 2.024 mIU/mL Normal 0.550-4.780 [facility] ([place] Comment on above: Result Comment: No te - New Reference Range in effect 19 Performed By: #### C BC, ADIFF, ANEU, BMP, MG, GFR #### [place] [address] .Auto Diffon 01-06-2021 Basophil, Absolute 0.10 10 3/mcL Normal 0.00-0.19 [facility] ([place] Comment on above: Performed By: #### B MP, GFR ####[place] [address]#### CBC, ADIFF, ANEU ####[facility] [place], [place] [address] Basophils/100 WBC (Bld) 0.8 % Normal 0.0-2.5 [facility] ([place]) Comment on above: Performed By: #### B MP, GFR ####[place] [address]#### CBC, ADIFF, ANEU ####[facility] [place], [place] [address] Eosinophil, Absolute 0.50 10 3/mcL High 0.00-0.40 [facility] ([place]) Comment on above: Performed By: #### B MP, GFR ####[place] [address]#### CBC, ADIFF, ANEU ####[facility] [place], [place] [address] Eosinophils/100 WBC (Bld) 7.1 % High 0.0-7.0 [facility] ([place]) Comment on above: Performed By: #### B MP, GFR ####[place] [address]#### CBC, ADIFF, ANEU ####[address] [place], [place] [address] Lymphocyte, Absolute 1.70 10 3/mcL Normal 0.77-3.85 [facility] ([place]) Comment on above: Performed By: #### B MP, GFR ####[place] [address]#### CBC, ADIFF, ANEU ####[address] [place], [place] [address] Lymphocytes/100 WBC (Bld) 24.7 % Normal 10.0-50.0 [facility] ([place]) Comment on above: Performed By: #### B MP, GFR ####[address] [address]#### CBC, ADIFF, ANEU ####[address] [place], [place] [address] Monocyte, Absolute 0.90 10 3/mcL Normal 0.15-1.00 [facility] ([place]) Comment on above: Performed By: #### B MP, GFR ####[address] [address]#### CBC, ADIFF, ANEU ####[address] [place], [place] [address] Monocytes/100 WBC (Bld) 13.5 % High 1.7-13.0 [facility] ([place]) Comment on above: Performed By: #### B MP, GFR ####[address] [address]#### CBC, ADIFF, ANEU ####[address] [place], [place] [address] Neutrophils/100 WBC (Bld) 53.9 % Normal 37.0-80.0 [facility] ([place]) Comment on above: Performed By: #### B MP, GFR ####[address] [address]#### CBC, ADIFF, ANEU ####[address] [place], [place] [address] .GFRon 01-06-2021 GFR 70 ml/min/1.73sqm Normal [facility] ([place]) Comment on above: Result Comment: GFR Population mean for , Non- Americans Ages 20-29 = 116 mL/min/1.73 sq.m. Ages 30-39 = 107 mL/min/1.73 sq.m. Ages 40-49 = 99 mL/min/1.73 sq.m. Ages 50-59 = 93 mL/min/1.73 sq.m. Ages 60-69 = 85 mL/min/1.73 sq.m. Ages 70+ = 75 mL/min/1.73 sq.m. Chronic Kidney Disease: Less than 60 mL/min/1.73 square meters End Stage Renal Disease: Less than 15 mL/min/1.73 square meters Performed By: #### B MP, GFR ####[place] [address]#### CBC, ADIFF, ANEU ####[address] [place], [place] [address] GFR Non- 58 ml/min/1.73sqm Normal [facility] ([place] Comment on above: Result Comment: GFR Population mean for , Non- Americans Ages 20-29 = 116 mL/min/1.73 sq.m. Ages 30-39 = 107 mL/min/1.73 sq.m. Ages 40-49 = 99 mL/min/1.73 sq.m. Ages 50-59 = 93 mL/min/1.73 sq.m. Ages 60-69 = 85 mL/min/1.73 sq.m. Ages 70+ = 75 mL/min/1.73 sq.m. Chronic Kidney Disease: Less than 60 mL/min/1.73 square meters End Stage Renal Disease: Less than 15 mL/min/1.73 square meters Performed By: #### B MP, GFR ####[place] [address]#### CBC, ADIFF, ANEU ####[address] [place], [place] [address] .NEUABSon 01-06-2021 Neutrophil, Absolute 3.80 10 3/mcL Normal 2.85-6.16 [facility] ([place]) Comment on above: Performed By: #### B MP, GFR ####[address] [address]#### CBC, ADIFF, ANEU ####[address] [place], [place] [address] BMPon 01-06-2021 BUN/Creatinine Ratio 27 ratio Normal 7-27 [facility] ([place] Comment on above: Performed By: #### B MP, GFR ####[address] [address]#### CBC, ADIFF, ANEU ####[address] [place], [place] [address] Calcium [Mass/Vol] 9.0 mg/dL Normal 8.4-10.2 [facility] ([place] Comment on above: Performed By: #### B MP, GFR ####[place] [address]#### CBC, ADIFF, ANEU ####[place] [address] [place], [place] [address] Chloride [Moles/Vol] 103 mmol/L Normal 98-107 [facility] ([place] Comment on above: Performed By: #### B MP, GFR ####[place] [address]#### CBC, ADIFF, ANEU ####[place] [address] [place], [place] [address] CO2 [Moles/Vol] 28 mmol/L Normal 23-31 [facility] ([place] Comment on above: Performed By: #### B MP, GFR ####[place] [address]#### CBC, ADIFF, ANEU ####[place] [address] [place], [place] [address] Creatinine [Mass/Vol] 0.94 mg/dL Normal 0.55-1.02 [facility] ([place] Comment on above: Performed By: #### B MP, GFR ####[address] [address]#### CBC, ADIFF, ANEU ####[address] [place], [place] [address] Electrolyte Balance 8.0 mEq/L Normal [facility] ([place] Comment on above: Performed By: #### B MP, GFR ####[place] [address]#### CBC, ADIFF, ANEU ####[address] [place], [place] [address] Glucose [Mass/Vol] 61 mg/dL Low 83-110 [facility] ([place] Comment on above: Performed By: #### B MP, GFR ####[address] [address]#### CBC, ADIFF, ANEU ####[address] [place], [place] [address] Potassium [Moles/Vol] 4.5 mmol/L Normal 3.5-5.1 [facility] ([place] Comment on above: Performed By: #### B MP, GFR ####[place] [address]#### CBC, ADIFF, ANEU ####[address] [place], [place] [address] Sodium [Moles/Vol] 139 mmol/L Normal 136-145 [facility] ([place] Comment on above: Performed By: #### B MP, GFR ####[place] [address]#### CBC, ADIFF, ANEU ####[address] [place], [place] [address] Urea nitrogen [Mass/Vol] 25 mg/dL High 7-18 [facility] ([place] Comment on above: Performed By: #### B MP, GFR ####[place] [address]#### CBC, ADIFF, ANEU ####[address] [place], [place] [address] CBCon 01-06-2021 Erythrocyte distribution width (RBC) [Ratio] 15.8 % High 11.5-14.5 [facility] ([place] Comment on above: Performed By: #### B MP, GFR ####[place] [address]#### CBC, ADIFF, ANEU ####[address] [place], [place] [address] Hematocrit (Bld) [Volume fraction] 34.4 % Low 37.0-47.0 [facility] ([place] Comment on above: Performed By: #### B MP, GFR ####[place] [address]#### CBC, ADIFF, ANEU ####[place] [address] [place], [place] [address] Hgb 11.6 G/dL Low 12.0-16.0 [facility] ([place] Comment on above: Performed By: #### B MP, GFR ####[place] [address]#### CBC, ADIFF, ANEU ####[place] [address] [place], [place] [address] MCH (RBC) [Entitic mass] 33.4 pg High 27.0-31.2 [facility] ([place] Comment on above: Performed By: #### B MP, GFR ####[place] [address]#### CBC, ADIFF, ANEU ####[place] [address] [place] [address] MCHC 33.6 G/dL Normal 33.0-37.0 [facility] ([place] Comment on above: Performed By: #### B MP, GFR ####[place] [address]#### CBC, ADIFF, ANEU ####[facility] [place], [place] [address] MCV (RBC) [Entitic vol] 99.3 fL High 80.0-94.0 [facility] ([place] Comment on above: Performed By: #### B MP, GFR ####[place] [address]#### CBC, ADIFF, ANEU ####[place] [address] [place], [place] [address] Platelet 374 10 3/mcL Normal 130-400 [facility] ([place] Comment on above: Performed By: #### B MP, GFR ####[place] [address]#### CBC, ADIFF, ANEU ####[facility] [place], [place] [address] Platelet mean volume (Bld) [Entitic vol] 9.5 fL Normal 7.4-10.4 [facility] ([place] Comment on above: Performed By: #### B MP, GFR ####[place] [address]#### CBC, ADIFF, ANEU ####[place] [address] RBC 3.47 10 6/mcL Low 4.20-5.40 [facility] ([place] Comment on above: Performed By: #### B MP, GFR ####[place] [address]#### CBC, ADIFF, ANEU ####[place] [address] [place] [address] WBC 7.00 10 3/mcL Normal 4.60-10.80 [facility] ([place] Comment on above: Performed By: #### B MP, GFR ####[place] [address]#### CBC, ADIFF, ANEU ####[place] [address] .Auto Diffon 12-29-2020 Basophil, Absolute 0.10 10 3/mcL Normal 0.00-0.27 [facility] ([place] Comment on above: Performed By: #### B MP, GFR, CBC, ADIFF, ANEU ####[place] [address] Basophils/100 WBC (Bld) 1.3 % Normal 0.0-2.5 [facility] ([place] Comment on above: Performed By: #### B MP, GFR, CBC, ADIFF, ANEU ####[place] [address] Eosinophil, Absolute 0.50 10 3/mcL Normal 0.00-0.65 [facility] ([place] Comment on above: Performed By: #### B MP, GFR, CBC, ADIFF, ANEU ####[address] [address] Eosinophils/100 WBC (Bld) 8.2 % High 0.0-6.0 [facility] ([place] Comment on above: Performed By: #### B MP, GFR, CBC, ADIFF, ANEU ####[address] [address] Lymphocyte, Absolute 1.50 10 3/mcL Normal 0.90-4.32 [facility] ([place] Comment on above: Performed By: #### B MP, GFR, CBC, ADIFF, ANEU ####[address] [address] Lymphocytes/100 WBC (Bld) 25.9 % Normal 20.0-40.0 [facility] ([place] Comment on above: Performed By: #### B MP, GFR, CBC, ADIFF, ANEU ####[address] [address] Monocyte, Absolute 0.40 10 3/mcL Normal 0.09-1.40 [facility] ([place] Comment on above: Performed By: #### B MP, GFR, CBC, ADIFF, ANEU ####[address] [address] Monocytes/100 WBC (Bld) 7.7 % Normal 2.0-13.0 [facility] ([place] Comment on above: Performed By: #### B MP, GFR, CBC, ADIFF, ANEU ####[address] [address] Neutrophils/100 WBC (Bld) 56.9 % Normal 50.0-75.0 [facility] ([place]) Comment on above: Performed By: #### B MP, GFR, CBC, ADIFF, ANEU ####[address] [address] .GFRon 12-29-2020 GFR >60 Normal [facility] ([place] Comment on above: Result Comment: GFR Population mean for , Non- Americans Ages 20-29 = 116 mL/min/1.73 sq.m. Ages 30-39 = 107 mL/min/1.73 sq.m. Ages 40-49 = 99 mL/min/1.73 sq.m. Ages 50-59 = 93 mL/min/1.73 sq.m. Ages 60-69 = 85 mL/min/1.73 sq.m. Ages 70+ = 75 mL/min/1.73 sq.m. Chronic Kidney Disease: Less than 60 mL/min/1.73 square meters End Stage Renal Disease: Less than 15 mL/min/1.73 square meters Performed By: #### B MP, GFR, CBC, ADIFF, ANEU ####[address] [address] GFR Non- 60 ml/min/1.73sqm Normal [facility] ([place] Comment on above: Result Comment: GFR Population mean for , Non- Americans Ages 20-29 = 116 mL/min/1.73 sq.m. Ages 30-39 = 107 mL/min/1.73 sq.m. Ages 40-49 = 99 mL/min/1.73 sq.m. Ages 50-59 = 93 mL/min/1.73 sq.m. Ages 60-69 = 85 mL/min/1.73 sq.m. Ages 70+ = 75 mL/min/1.73 sq.m. Chronic Kidney Disease: Less than 60 mL/min/1.73 square meters End Stage Renal Disease: Less than 15 mL/min/1.73 square meters Performed By: #### B MP, GFR, CBC, ADIFF, ANEU ####[place] [address] .NEUABSon 12-29-2020 Neutrophil, Absolute 3.30 10 3/mcL Normal 2.25-8.10 [facility] ([place] Comment on above: Performed By: #### B MP, GFR, CBC, ADIFF, ANEU ####[place] [id number] BMPon 12-29-2020 BUN/Creatinine Ratio 27.5 ratio High 10.0-22.0 [facility] ([place] Comment on above: Performed By: #### B MP, GFR, CBC, ADIFF, ANEU ####[address] [address] Calcium [Mass/Vol] 9.4 mg/dL Normal 8.7-10.4 [facility] ([place] Comment on above: Result Comment: No te - New Reference Range in effect 19 Performed By: #### B MP, GFR, CBC, ADIFF, ANEU ####[address] [address] Chloride [Moles/Vol] 106 mmol/L Normal 98-110 [facility] ([place] Comment on above: Performed By: #### B MP, GFR, CBC, ADIFF, ANEU ####[address] [address] CO2 [Moles/Vol] 29 mmol/L Normal 22-32 [facility] ([place] Comment on above: Performed By: #### B MP, GFR, CBC, ADIFF, ANEU ####[place] [address] Creatinine [Mass/Vol] 0.91 mg/dL Normal 0.50-1.20 [facility] ([place] Comment on above: Performed By: #### B MP, GFR, CBC, ADIFF, ANEU ####[place] [address] Electrolyte Balance 5.0 mEq/L Normal 4.0-15.0 [facility] ([place] Comment on above: Performed By: #### B MP, GFR, CBC, ADIFF, ANEU ####[address] [address] Glucose [Mass/Vol] 152 mg/dL High 82-115 [facility] ([place] Comment on above: Performed By: #### B MP, GFR, CBC, ADIFF, ANEU ####[address] [address] Potassium [Moles/Vol] 4.6 mmol/L Normal 3.5-5.0 [facility] ([place] Comment on above: Performed By: #### B MP, GFR, CBC, ADIFF, ANEU ####[address] [address] Sodium [Moles/Vol] 140 mmol/L Normal 136-145 [facility] ([place] Comment on above: Performed By: #### B MP, GFR, CBC, ADIFF, ANEU ####[place] [address] Urea nitrogen [Mass/Vol] 25.0 mg/dL High 8.0-22.0 [facility] ([place] Comment on above: Performed By: #### B MP, GFR, CBC, ADIFF, ANEU ####[place] [address] CBCon 12-29-2020 Erythrocyte distribution width (RBC) [Ratio] 17.1 % High 11.5-15.5 [facility] ([place] Comment on above: Performed By: #### B MP, GFR, CBC, ADIFF, ANEU ####[place] [address] Hematocrit (Bld) [Volume fraction] 34.2 % Normal 34.0-46.0 [facility] ([place] Comment on above: Performed By: #### B MP, GFR, CBC, ADIFF, ANEU ####[place] [address] Hgb 11.2 G/dL Low 12.0-16.0 [facility] ([place] Comment on above: Performed By: #### B MP, GFR, CBC, ADIFF, ANEU ####[place] [address] MCH (RBC) [Entitic mass] 32.1 pg Normal 27.0-33.0 [facility] ([place] Comment on above: Performed By: #### B MP, GFR, CBC, ADIFF, ANEU ####[place] [address] MCHC 32.7 G/dL Normal 32.0-36.0 [facility] ([place] Comment on above: Performed By: #### B MP, GFR, CBC, ADIFF, ANEU ####[place] [address] MCV (RBC) [Entitic vol] 98.4 fL Normal 80.0-99.0 [facility] ([place] Comment on above: Performed By: #### B MP, GFR, CBC, ADIFF, ANEU ####[place] [address] Platelet 410 10 3/mcL Normal 150-450 [facility] ([place] Comment on above: Performed By: #### B MP, GFR, CBC, ADIFF, ANEU ####[place] [address] Platelet mean volume (Bld) [Entitic vol] 9.5 fL Normal 6.6-10.5 [facility] ([place]) Comment on above: Performed By: #### B MP, GFR, CBC, ADIFF, ANEU ####[place] [address] RBC 3.47 10 6/mcL Low 4.10-5.30 [facility] ([place]) Comment on above: Performed By: #### B MP, GFR, CBC, ADIFF, ANEU ####[place] [address] WBC 5.80 10 3/mcL Normal 4.50-10.80 [facility] ([place] Comment on above: Performed By: #### B MP, GFR, CBC, ADIFF, ANEU ####[place] [address] .Auto Diffon 12-22-2020 Basophil, Absolute 0.10 10 3/mcL Normal 0.00-0.27 [facility] ([place]) Comment on above: Performed By: #### C BC, ADIFF, ANEU, BMP, GFR ####[place] [address] Basophils/100 WBC (Bld) 1.0 % Normal 0.0-2.5 [facility] ([place]) Comment on above: Performed By: #### C BC, ADIFF, ANEU, BMP, GFR ####[place] [address] Eosinophil, Absolute 0.60 10 3/mcL Normal 0.00-0.65 [facility] ([place] Comment on above: Performed By: #### C BC, ADIFF, ANEU, BMP, GFR ####[address] [address] Eosinophils/100 WBC (Bld) 9.0 % High 0.0-6.0 [facility] ([place] Comment on above: Performed By: #### C BC, ADIFF, ANEU, BMP, GFR ####[address] [address] Lymphocyte, Absolute 1.50 10 3/mcL Normal 0.90-4.32 [facility] ([place]) Comment on above: Performed By: #### C BC, ADIFF, ANEU, BMP, GFR ####[address] [address] Lymphocytes/100 WBC (Bld) 23.4 % Normal 20.0-40.0 [facility] ([place] Comment on above: Performed By: #### C BC, ADIFF, ANEU, BMP, GFR ####[address] [address] Monocyte, Absolute 0.40 10 3/mcL Normal 0.09-1.40 [facility] ([place]) Comment on above: Performed By: #### C BC, ADIFF, ANEU, BMP, GFR ####[address] [address] Monocytes/100 WBC (Bld) 6.6 % Normal 2.0-13.0 [facility] ([place] Comment on above: Performed By: #### C BC, ADIFF, ANEU, BMP, GFR ####[address] [address] Neutrophils/100 WBC (Bld) 60.0 % Normal 50.0-75.0 [facility] ([place] Comment on above: Performed By: #### C BC, ADIFF, ANEU, BMP, GFR ####[address] [address] .GFRon 12-22-2020 GFR >60 Normal [facility] ([place] Comment on above: Result Comment: GFR Population mean for , Non- Americans Ages 20-29 = 116 mL/min/1.73 sq.m. Ages 30-39 = 107 mL/min/1.73 sq.m. Ages 40-49 = 99 mL/min/1.73 sq.m. Ages 50-59 = 93 mL/min/1.73 sq.m. Ages 60-69 = 85 mL/min/1.73 sq.m. Ages 70+ = 75 mL/min/1.73 sq.m. Chronic Kidney Disease: Less than 60 mL/min/1.73 square meters End Stage Renal Disease: Less than 15 mL/min/1.73 square meters Performed By: #### C BC, ADIFF, ANEU, BMP, GFR ####[address] [address] GFR Non- >60 Normal [facility] ([place] Comment on above: Result Comment: GFR Population mean for , Non- Americans Ages 20-29 = 116 mL/min/1.73 sq.m. Ages 30-39 = 107 mL/min/1.73 sq.m. Ages 40-49 = 99 mL/min/1.73 sq.m. Ages 50-59 = 93 mL/min/1.73 sq.m. Ages 60-69 = 85 mL/min/1.73 sq.m. Ages 70+ = 75 mL/min/1.73 sq.m. Chronic Kidney Disease: Less than 60 mL/min/1.73 square meters End Stage Renal Disease: Less than 15 mL/min/1.73 square meters Performed By: #### C BC, ADIFF, ANEU, BMP, GFR ####[address] [address] .NEUABSon 12-22-2020 Neutrophil, Absolute 3.90 10 3/mcL Normal 2.25-8.10 [facility] ([place] Comment on above: Performed By: #### C BC, ADIFF, ANEU, BMP, GFR ####[address] [address] BMPon 12-22-2020 BUN/Creatinine Ratio 25.6 ratio High 10.0-22.0 [facility] ([place] Comment on above: Performed By: #### C BC, ADIFF, ANEU, BMP, GFR ####[address] [address] Calcium [Mass/Vol] 9.3 mg/dL Normal 8.7-10.4 [facility] ([place] Comment on above: Result Comment: No te - New Reference Range in effect 19 Performed By: #### C BC, ADIFF, ANEU, BMP, GFR ####[address] [address] Chloride [Moles/Vol] 107 mmol/L Normal 98-110 [facility] ([place] Comment on above: Performed By: #### C BC, ADIFF, ANEU, BMP, GFR ####[address] [address] CO2 [Moles/Vol] 26 mmol/L Normal 22-32 [facility] [place] Comment on above: Performed By: #### C BC, ADIFF, ANEU, BMP, GFR ####[address] [address] Creatinine [Mass/Vol] 0.90 mg/dL Normal 0.50-1.20 [facility] ([place] Comment on above: Performed By: #### C BC, ADIFF, ANEU, BMP, GFR ####[address] [address] Electrolyte Balance 8.0 mEq/L Normal 4.0-15.0 [facility] ([place] Comment on above: Performed By: #### C BC, ADIFF, ANEU, BMP, GFR ####[address] [address] Glucose [Mass/Vol] 136 mg/dL High 82-115 [facility] [place] Comment on above: Performed By: #### C BC, ADIFF, ANEU, BMP, GFR ####[address] [address] Potassium [Moles/Vol] 4.5 mmol/L Normal 3.5-5.0 [facility] ([place] Comment on above: Performed By: #### C BC, ADIFF, ANEU, BMP, GFR ####[address] [address] Sodium [Moles/Vol] 141 mmol/L Normal 136-145 [facility] [place] Comment on above: Performed By: #### C BC, ADIFF, ANEU, BMP, GFR ####[place] [address] Urea nitrogen [Mass/Vol] 23.0 mg/dL High 8.0-22.0 [facility] ([place] Comment on above: Performed By: #### C BC, ADIFF, ANEU, BMP, GFR ####[place] [address] CBCon 12-22-2020 Erythrocyte distribution width (RBC) [Ratio] 16.4 % High 11.5-15.5 [facility] ([place] Comment on above: Performed By: #### C BC, ADIFF, ANEU, BMP, GFR ####[place] [address] Hematocrit (Bld) [Volume fraction] 33.8 % Low 34.0-46.0 [facility] ([place] Comment on above: Performed By: #### C BC, ADIFF, ANEU, BMP, GFR ####[place] [address] Hgb 10.8 G/dL Low 12.0-16.0 [facility] ([place] Comment on above: Performed By: #### C BC, ADIFF, ANEU, BMP, GFR ####[place] [address] MCH (RBC) [Entitic mass] 31.2 pg Normal 27.0-33.0 [facility] ([place] Comment on above: Performed By: #### C BC, ADIFF, ANEU, BMP, GFR ####[place] [address] MCHC 31.9 G/dL Low 32.0-36.0 [facility] ([place] Comment on above: Performed By: #### C BC, ADIFF, ANEU, BMP, GFR ####[place] [address] MCV (RBC) [Entitic vol] 97.7 fL Normal 80.0-99.0 [facility] ([place] Comment on above: Performed By: #### C BC, ADIFF, ANEU, BMP, GFR ####[place] [address] Platelet 440 10 3/mcL Normal 150-450 [facility] [place] Comment on above: Performed By: #### C BC, ADIFF, ANEU, BMP, GFR ####[place] [address] Platelet mean volume (Bld) [Entitic vol] 8.5 fL Normal 6.6-10.5 [facility] ([place] Comment on above: Performed By: #### C BC, ADIFF, ANEU, BMP, GFR ####[place] [address] RBC 3.46 10 6/mcL Low 4.10-5.30 [facility] ([place] Comment on above: Performed By: #### C BC, ADIFF, ANEU, BMP, GFR ####[place] [address] WBC 6.40 10 3/mcL Normal 4.50-10.80 [facility] [place] Comment on above: Performed By: #### C BC, ADIFF, ANEU, BMP, GFR ####[place] [address] .Auto Diffon 12-21-2020 Basophil, Absolute 0.10 10 3/mcL Normal 0.00-0.27 [facility] [place] Comment on above: Performed By: #### C BC, ADIFF, ANEU ####[place] [address] Basophils/100 WBC (Bld) 0.8 % Normal 0.0-2.5 [facility] ([place] Comment on above: Performed By: #### C BC, ADIFF, ANEU ####[place] [address] Eosinophil, Absolute 0.80 10 3/mcL High 0.00-0.65 [facility] ([place] Comment on above: Performed By: #### C BC, ADIFF, ANEU ####[facility] [place] [address] Eosinophils/100 WBC (Bld) 8.3 % High 0.0-6.0 [facility] ([place] Comment on above: Performed By: #### C TRUPTI PINON, ANEU ####[address] [address] Lymphocyte, Absolute 2.40 10 3/mcL Normal 0.90-4.32 [facility] ([place] Comment on above: Performed By: #### C TRUPTI PINON, ANEU ####[address] [address] Lymphocytes/100 WBC (Bld) 25.5 % Normal 20.0-40.0 [facility] ([place] Comment on above: Performed By: #### C TRUPTI PINON, ANEU ####[address] [address] Monocyte, Absolute 0.90 10 3/mcL Normal 0.09-1.40 [facility] ([place] Comment on above: Performed By: #### C TRUPTI PINON, ANEU ####[address] [address] Monocytes/100 WBC (Bld) 9.9 % Normal 2.0-13.0 [facility] ([place] Comment on above: Performed By: #### C TRUPTI PINON, ANEU ####[address] [address] Neutrophils/100 WBC (Bld) 55.5 % Normal 50.0-75.0 [facility] ([place] Comment on above: Performed By: #### C TRUPTI PINON, ANEU ####[address] [address] .NEUABSon 12-21-2020 Neutrophil, Absolute 5.20 10 3/mcL Normal 2.25-8.10 [facility] ([place] Comment on above: Performed By: #### C TRUPTI PINON, ANEU ####[address] [address] CBCon 12-21-2020 Erythrocyte distribution width (RBC) [Ratio] 15.5 % Normal 11.5-15.5 [facility] ([place] Comment on above: Performed By: #### C TRUPTI PINON ANEU ####[place] [address] Hematocrit (Bld) [Volume fraction] 28.3 % Low 34.0-46.0 [facility] ([place] Comment on above: Performed By: #### C TRUPTI PINON ANEU ####[place] [address] Hgb 9.4 G/dL Low 12.0-16.0 [facility] ([place] Comment on above: Performed By: #### C TRUPTI PINON ANEU ####[place] [address] MCH (RBC) [Entitic mass] 32.1 pg Normal 27.0-33.0 [facility] ([place] Comment on above: Performed By: #### TRUPTI TATE ANEU ####[place] [address] MCHC 33.1 G/dL Normal 32.0-36.0 [facility] ([place] Comment on above: Performed By: #### TRUPTI TATE ANEU ####[place] [address] MCV (RBC) [Entitic vol] 96.9 fL Normal 80.0-99.0 [facility] ([place] Comment on above: Performed By: #### C TRUPTI PINON ANEU ####[place] [address] Platelet 416 10 3/mcL Normal 150-450 [facility] [place] Comment [place] above: Performed By: #### TRUPTI TATE ANEU ####[place] [address] Platelet mean volume (Bld) [Entitic vol] 8.5 fL Normal 6.6-10.5 [facility] ([place] Comment on above: Performed By: #### TRUPTI TATE ANEU ####[address] [address] RBC 2.92 10 6/mcL Low 4.10-5.30 [facility] ([place] Comment on above: Performed By: #### TRUPTI TATE ANEU ####[address] [address] WBC 9.30 10 3/mcL Normal 4.50-10.80 [facility] ([place] Comment on above: Performed By: #### TRUPTI TATE, ANEU ####[address] [address] .Auto Diffon 12-18-2020 Basophil, Absolute 0.10 10 3/mcL Normal 0.00-0.27 [facility] [place] Comment on above: Performed By: #### TRUPTI TATE ANEU ####[address] [address] Basophils/100 WBC (Bld) 0.8 % Normal 0.0-2.5 [facility] ([place] Comment on above: Performed By: #### TRUPTI TATE, ANEU ####[address] [address] Eosinophil, Absolute 0.70 10 3/mcL High 0.00-0.65 [facility] ([place] Comment on above: Performed By: #### TRUPTI TATE, ANEU ####[address] [address] Eosinophils/100 WBC (Bld) 9.0 % High 0.0-6.0 [facility] ([place] Comment on above: Performed By: #### TRUPTI TATE, ANEU ####[address] [address] Lymphocyte, Absolute 1.90 10 3/mcL Normal 0.90-4.32 [facility] ([place] Comment on above: Performed By: #### TRUPTI TATE, ANEU ####[address] [address] Lymphocytes/100 WBC (Bld) 26.6 % Normal 20.0-40.0 [facility] ([place] Comment on above: Performed By: #### C TRUPTI PINON, ANGEL LUIS ####[address] [address] Monocyte, Absolute 0.80 10 3/mcL Normal 0.09-1.40 [facility] ([place] Comment on above: Performed By: #### C TRUPTI PINON, ANGEL LUIS ####[address] [address] Monocytes/100 WBC (Bld) 10.5 % Normal 2.0-13.0 [facility] ([place] Comment on above: Performed By: #### C TRUPTI PINON, ANGEL LUIS ####[place] [address] Neutrophils/100 WBC (Bld) 53.1 % Normal 50.0-75.0 [facility] ([place] Comment on above: Performed By: #### C TRUPTI PINON, ANEU ####[place] [address] .NEUABSon 12-18-2020 Neutrophil, Absolute 3.90 10 3/mcL Normal 2.25-8.10 [facility] ([place] Comment on above: Performed By: #### C TRUPTI PINON, ANEU ####[place] [address] CBCon 12-18-2020 Erythrocyte distribution width (RBC) [Ratio] 14.4 % Normal 11.5-15.5 [facility] ([place] Comment on above: Performed By: #### C TRUPTI PINON, ANEU ####[address] [address] Hematocrit (Bld) [Volume fraction] 29.1 % Low 34.0-46.0 [facility] ([place] Comment on above: Performed By: #### C TRUPTI PINON, ANEU ####[place] [address] Hgb 9.5 G/dL Low 12.0-16.0 [facility] ([place] Comment on above: Performed By: #### C TRUPTI PINON, ANEU ####[place] [address] MCH (RBC) [Entitic mass] 31.0 pg Normal 27.0-33.0 [facility] ([place] Comment on above: Performed By: #### TRUPTI TATE ANEU ####[place] [address] MCHC 32.6 G/dL Normal 32.0-36.0 [facility] ([place] Comment on above: Performed By: #### TRUPTI TATE ANEU ####[place] [address] MCV (RBC) [Entitic vol] 95.0 fL Normal 80.0-99.0 [facility] ([place] Comment on above: Performed By: #### TRUPTI TATE ANEU ####[place] [address] Platelet 415 10 3/mcL Normal 150-450 [facility] [place] Comment [place] above: Performed By: #### TRUPTI TATE ANEU ####[place] [address] Platelet mean volume (Bld) [Entitic vol] 8.5 fL Normal 6.6-10.5 [facility] ([place] Comment on above: Performed By: #### TRUPTI TATE ANEU ####[place] [address] RBC 3.06 10 6/mcL Low 4.10-5.30 [facility] ([place] Comment [place] above: Performed By: #### TRUPTI TATE ANEU ####[place] [address] WBC 7.30 10 3/mcL Normal 4.50-10.80 [facility] ([place] Comment on above: Performed By: #### TRUPTI TATE ANEU ####[place] [address] .Auto Diffon 12-15-2020 Basophil, Absolute 0.10 10 3/mcL Normal 0.00-0.27 [facility] [place] Comment on above: Performed By: #### C BC, ADIFF, ANEU, BMP, FES, GFR ####[address] [address] Basophils/100 WBC (Bld) 0.8 % Normal 0.0-2.5 [facility] ([place] Comment on above: Performed By: #### C BC, ADIFF, ANEU, BMP, FES, GFR ####[address] [address] Eosinophil, Absolute 0.60 10 3/mcL Normal 0.00-0.65 [facility] ([place] Comment on above: Performed By: #### C BC, ADIFF, ANEU, BMP, FES, GFR ####[address] [address] Eosinophils/100 WBC (Bld) 5.4 % Normal 0.0-6.0 [facility] ([place] Comment on above: Performed By: #### C BC, ADIFF, ANEU, BMP, FES, GFR ####[address] [address] Lymphocyte, Absolute 1.60 10 3/mcL Normal 0.90-4.32 [facility] ([place] Comment on above: Performed By: #### C BC, ADIFF, ANEU, BMP, FES, GFR ####[address] [address] Lymphocytes/100 WBC (Bld) 13.2 % Low 20.0-40.0 [facility] ([place] Comment on above: Performed By: #### C BC, ADIFF, ANEU, BMP, FES, GFR ####[address] [address] Monocyte, Absolute 1.00 10 3/mcL Normal 0.09-1.40 [facility] [place] Comment on above: Performed By: #### C BC, ADIFF, ANEU, BMP, FES, GFR ####[address] [address] Monocytes/100 WBC (Bld) 8.3 % Normal 2.0-13.0 [facility] ([place] Comment on above: Performed By: #### C BC, ADIFF, ANEU, BMP, FES, GFR ####[address] [address] Neutrophils/100 WBC (Bld) 72.3 % Normal 50.0-75.0 [facility] ([place] Comment on above: Performed By: #### C BC, ADIFF, ANEU, BMP, FES, GFR ####[address] [address] .GFRon 12-15-2020 GFR >60 Normal [facility] ([place] Comment on above: Result Comment: GFR Population mean for , Non- Americans Ages 20-29 = 116 mL/min/1.73 sq.m. Ages 30-39 = 107 mL/min/1.73 sq.m. Ages 40-49 = 99 mL/min/1.73 sq.m. Ages 50-59 = 93 mL/min/1.73 sq.m. Ages 60-69 = 85 mL/min/1.73 sq.m. Ages 70+ = 75 mL/min/1.73 sq.m. Chronic Kidney Disease: Less than 60 mL/min/1.73 square meters End Stage Renal Disease: Less than 15 mL/min/1.73 square meters Performed By: #### C BC, ADIFF, ANEU, BMP, FES, GFR ####[address] [address] GFR Non- >60 Normal [facility] ([place] Comment on above: Result Comment: GFR Population mean for , Non- Americans Ages 20-29 = 116 mL/min/1.73 sq.m. Ages 30-39 = 107 mL/min/1.73 sq.m. Ages 40-49 = 99 mL/min/1.73 sq.m. Ages 50-59 = 93 mL/min/1.73 sq.m. Ages 60-69 = 85 mL/min/1.73 sq.m. Ages 70+ = 75 mL/min/1.73 sq.m. Chronic Kidney Disease: Less than 60 mL/min/1.73 square meters End Stage Renal Disease: Less than 15 mL/min/1.73 square meters Performed By: #### C BC, ADIFF, ANEU, BMP, FES, GFR ####[address] [address] .NEUABSon 12-15-2020 Neutrophil, Absolute 8.60 10 3/mcL High 2.25-8.10 [facility] ([place] Comment on above: Performed By: #### C BC, ADIFF, ANEU, BMP, FES, GFR ####[address] [address] BMPon 12-15-2020 BUN/Creatinine Ratio 28.2 ratio High 10.0-22.0 [facility] ([place] Comment on above: Performed By: #### C BC, ADIFF, ANEU, BMP, FES, GFR ####[place] [address] Calcium [Mass/Vol] 9.1 mg/dL Normal 8.7-10.4 [facility] [place] Comment on above: Result Comment: No te - New Reference Range in effect 19 Performed By: #### C BC, ADIFF, ANEU, BMP, FES, GFR ####[place] [address] Chloride [Moles/Vol] 106 mmol/L Normal 98-110 [facility] ([place] Comment on above: Performed By: #### C BC, ADIFF, ANEU, BMP, FES, GFR ####[place] [address] CO2 [Moles/Vol] 28 mmol/L Normal 22-32 [facility] [place] Comment on above: Performed By: #### C BC, ADIFF, ANEU, BMP, FES, GFR ####[place] [address] Creatinine [Mass/Vol] 0.85 mg/dL Normal 0.50-1.20 [facility] ([place] Comment on above: Performed By: #### C BC, ADIFF, ANEU, BMP, FES, GFR ####[place] [address] Electrolyte Balance 6.0 mEq/L Normal 4.0-15.0 [facility] ([place] Comment on above: Performed By: #### C BC, ADIFF, ANEU, BMP, FES, GFR ####[place] [address] Glucose [Mass/Vol] 82 mg/dL Normal 82-115 [facility] [place] Comment on above: Performed By: #### C BC, ADIFF, ANEU, BMP, FES, GFR ####[place] [address] Potassium [Moles/Vol] 4.9 mmol/L Normal 3.5-5.0 [facility] ([place] Comment on above: Performed By: #### C BC, ADIFF, ANEU, BMP, FES, GFR ####[place] [address] Sodium [Moles/Vol] 140 mmol/L Normal 136-145 [facility] [place] Comment on above: Performed By: #### C BC, ADIFF, ANEU, BMP, FES, GFR ####[place] [address] Urea nitrogen [Mass/Vol] 24.0 mg/dL High 8.0-22.0 [facility] ([place] Comment on above: Performed By: #### C BC, ADIFF, ANEU, BMP, FES, GFR ####[place] [address] CBCon 12-15-2020 Erythrocyte distribution width (RBC) [Ratio] 14.1 % Normal 11.5-15.5 [facility] ([place] Comment on above: Performed By: #### C BC, ADIFF, ANEU, BMP, FES, GFR ####[place] [address] Hematocrit (Bld) [Volume fraction] 30.9 % Low 34.0-46.0 [facility] ([place] Comment on above: Performed By: #### C BC, ADIFF, ANEU, BMP, FES, GFR ####[place] [address] Hgb 10.0 G/dL Low 12.0-16.0 [facility] ([place] Comment on above: Performed By: #### C BC, ADIFF, ANEU, BMP, FES, GFR ####[place] [address] MCH (RBC) [Entitic mass] 30.9 pg Normal 27.0-33.0 [facility] ([place] Comment on above: Performed By: #### C BC, ADIFF, ANEU, BMP, FES, GFR ####[place] [address] MCHC 32.6 G/dL Normal 32.0-36.0 [facility] ([place] Comment on above: Performed By: #### C BC, ADIFF, ANEU, BMP, FES, GFR ####[place] [address] MCV (RBC) [Entitic vol] 95.0 fL Normal 80.0-99.0 [facility] ([place] Comment on above: Performed By: #### C BC, ADIFF, ANEU, BMP, FES, GFR ####[place] [address] Platelet 442 10 3/mcL Normal 150-450 [facility] [place] Comment on above: Performed By: #### C BC, ADIFF, ANEU, BMP, FES, GFR ####[place] [address] Platelet mean volume (Bld) [Entitic vol] 8.8 fL Normal 6.6-10.5 [facility] ([place] Comment on above: Performed By: #### C BC, ADIFF, ANEU, BMP, FES, GFR ####[place] [address] RBC 3.25 10 6/mcL Low 4.10-5.30 [facility] [place] Comment on above: Performed By: #### C BC, ADIFF, ANEU, BMP, FES, GFR ####[place] [address] WBC 11.90 10 3/mcL High 4.50-10.80 [facility] ([place] Comment on above: Performed By: #### C BC, ADIFF, ANEU, BMP, FES, GFR ####[place] [address] FESon 12-15-2020 Iron [Mass/Vol] 81 ug/dL Normal 50-170 [facility] [place] Comment on above: Performed By: #### C BC, ADIFF, ANEU, BMP, FES, GFR ####[place] [address] Iron Sat 26 % Normal [facility] ([place] Comment on above: Performed By: #### C BC, ADIFF, ANEU, BMP, FES, GFR ####[place] [address] TIBC 317 mcg/dL Normal 250-500 [facility] ([place] Comment on above: Performed By: #### C BC, ADIFF, ANEU, BMP, FES, GFR ####[place] [address] .Auto Diffon 12-14-2020 Basophil, Absolute 0.10 10 3/mcL Normal 0.00-0.27 [facility] [place] Comment on above: Performed By: #### C BC, MACIELIFF, ANEU ####[place] [address] Basophils/100 WBC (Bld) 0.6 % Normal 0.0-2.5 [facility] ([place] Comment on above: Performed By: #### C BCMACIELIFF, ANEU ####[place] [address] Eosinophil, Absolute 0.60 10 3/mcL Normal 0.00-0.65 [facility] ([place] Comment on above: Performed By: #### C BC, ADIFF, ANEU ####[place] [address] Eosinophils/100 WBC (Bld) 5.0 % Normal 0.0-6.0 [facility] ([place] Comment on above: Performed By: #### C BC, ADIFF, ANEU ####[place] [address] Lymphocyte, Absolute 1.80 10 3/mcL Normal 0.90-4.32 [facility] ([place] Comment on above: Performed By: #### C TRUPTI PINON, ANEU ####[address] [address] Lymphocytes/100 WBC (Bld) 16.2 % Low 20.0-40.0 [facility] ([place] Comment on above: Performed By: #### C TRUPTI PINON, ANEU ####[address] [address] Monocyte, Absolute 1.10 10 3/mcL Normal 0.09-1.40 [facility] ([place] Comment on above: Performed By: #### C TRUPTI PINON, ANEU ####[address] [address] Monocytes/100 WBC (Bld) 9.3 % Normal 2.0-13.0 [facility] ([place] Comment on above: Performed By: #### C TRUPTI PINON, ANEU ####[address] [address] Neutrophils/100 WBC (Bld) 68.9 % Normal 50.0-75.0 [facility] ([place] Comment on above: Performed By: #### C TRUPTI PINON, ANEU ####[place] [address] .NEUABSon 12-14-2020 Neutrophil, Absolute 7.80 10 3/mcL Normal 2.25-8.10 [facility] ([place] Comment on above: Performed By: #### C TRUPTI PINON, ANEU ####[address] [address] CBCon 12-14-2020 Erythrocyte distribution width (RBC) [Ratio] 14.0 % Normal 11.5-15.5 [facility] ([place] Comment on above: Performed By: #### TRUPTI TATE, ANEU ####[place] [address] Hematocrit (Bld) [Volume fraction] 27.9 % Low 34.0-46.0 [facility] [place] Comment on above: Performed By: #### TRUPTI TATE, ANEU ####[address] [address] Hgb 9.2 G/dL Low 12.0-16.0 [facility] ([place] Comment on above: Performed By: #### TRUPTI TATE ANEU ####[address] [address] MCH (RBC) [Entitic mass] 31.8 pg Normal 27.0-33.0 [facility] ([place] Comment on above: Performed By: #### TRUPTI TATE ANEU ####[address] [address] MCHC 33.0 G/dL Normal 32.0-36.0 [facility] ([place] Comment on above: Performed By: #### TRUPTI TATE ANEU ####[place] [address] MCV (RBC) [Entitic vol] 96.4 fL Normal 80.0-99.0 [facility] ([place] Comment on above: Performed By: #### TRUPTI TATE ANEU ####[place] [address] Platelet 422 10 3/mcL Normal 150-450 [facility] [place] Comment on above: Performed By: #### TRUPTI TATE ANEU ####[address] [address] Platelet mean volume (Bld) [Entitic vol] 9.3 fL Normal 6.6-10.5 [facility] ([place] Comment on above: Performed By: #### TRUPTI TATE ANEU ####[place] [address] RBC 2.90 10 6/mcL Low 4.10-5.30 [facility] [place] Comment on above: Performed By: #### TRUPTI TATE ANEU ####[address] [address] WBC 11.30 10 3/mcL High 4.50-10.80 [facility] [place] Comment on above: Performed By: #### TRUPTI TATE ANEU ####[place] [address] UAon 12-14-2020 Color (U) Dark Yellow Normal [facility] ([place] Comment on above: Performed By: #### U A, UAMIC ####[place] [address] Glucose (U) [Mass/Vol] Negative Normal Negative [facility] ([place]) Comment on above: Performed By: #### U A, UAMIC ####[place] [address] Ketones Ql (U) Negative Normal Neg-Trace [facility] ([place]) Comment on above: Performed By: #### U A, UAMIC ####[place] [address] UA Appear Turbid Abnormal Clear [facility] ([place] Comment on above: Performed By: #### U A, UAMIC ####[place] [address] UA Blood Small Abnormal Neg-Trace [facility] ([place] Comment on above: Performed By: #### U A, UAMIC ####[place] [address] UA Leuk Est Small Abnormal Negative [facility] ([place] Comment on above: Performed By: #### U A, UAMIC ####[place] [address] UA Nitrite Positive Abnormal Negative [facility] ([place] Comment on above: Performed By: #### U A, UAMIC ####[place] [address] UA pH 5.0 Normal 5.0 - 8.0 [facility] ([place] Comment on above: Performed By: #### U A, UAMIC ####[place] [address] UA Protein Negative Normal Negative [facility] ([place] Comment on above: Performed By: #### U A, UAMIC ####[place] [address] UA Spec Grav 1.025 Normal 1.006-1.029 [facility] ([place]) Comment on above: Performed By: #### U A, UAMIC ####[place] [address] UA Specimen Type Clean Catch Normal [facility] ([place]) Comment on above: Performed By: #### U A, UAMIC ####[address] [address] UA Urobilinogen 1.0 E.U./dL Normal 0.2-1.0 [facility] ([place]) Comment on above: Performed By: #### U A, UAMIC ####[place] [address] Urobilinogen (U) [Mass/Vol] Negative Normal Neg-Trace [facility] ([place] Comment on above: Performed By: #### U A, UAMIC ####[place] [address] UAMICon 12-14-2020 UA Amorphus 1+ /hpf Normal [facility] ([place]) Comment on above: Performed By: #### U A, UAMIC ####[place] [address] UA Bacteria 3+ /hpf Abnormal Negative [facility] ([place] Comment on above: Performed By: #### U A, UAMIC ####[place] [address] UA CA Phosphate Crystals 1+ /hpf Normal [facility] ([place] Comment on above: Performed By: #### U A, UAMIC ####[place] [address] UA RBC 0-2 Normal 0-2 [facility] ([place] Comment on above: Performed By: #### U A, UAMIC ####[place] [address] UA Squam Epithelial 3-5 Normal 0-20 [facility] ([place] Comment on above: Performed By: #### U A, UAMIC ####[place] [address] UA WBC 5-10 Abnormal 0-5 [facility] ([place] Comment on above: Performed By: #### Jane Carter UAMIC ####[address] [address] .Auto Diffon 12-13-2020 Basophil, Absolute 0.10 10 3/mcL Normal 0.00-0.27 [facility] ([place]) Comment on above: Performed By: #### TRUPTI TATE, ANEU ####[address] [address] Basophils/100 WBC (Bld) 0.5 % Normal 0.0-2.5 [facility] ([place]) Comment on above: Performed By: #### TRUPTI TATE, ANEU ####[address] [address] Eosinophil, Absolute 0.60 10 3/mcL Normal 0.00-0.65 [facility] ([place]) Comment on above: Performed By: #### TRUPTI TATE, ANEU ####[address] [address] Eosinophils/100 WBC (Bld) 4.5 % Normal 0.0-6.0 [facility] ([place] Comment on above: Performed By: #### TRUPTI TATE, ANEU ####[address] [address] Lymphocyte, Absolute 2.00 10 3/mcL Normal 0.90-4.32 [facility] ([place] Comment on above: Performed By: #### TRUPTI TATE, ANEU ####[address] [address] Lymphocytes/100 WBC (Bld) 14.8 % Low 20.0-40.0 [facility] ([place] Comment on above: Performed By: #### TRUPTI TATE, ANEU ####[address] [address] Monocyte, Absolute 1.40 10 3/mcL Normal 0.09-1.40 [facility] ([place]) Comment on above: Performed By: #### TRUPTI TATE, ANEU ####[address] [address] Monocytes/100 WBC (Bld) 10.2 % Normal 2.0-13.0 [facility] ([place]) Comment on above: Performed By: #### TRUPTI TATE ANEU ####[place] [address] Neutrophils/100 WBC (Bld) 70.0 % Normal 50.0-75.0 [facility] ([place]) Comment on above: Performed By: #### TRUPTI TATE, ANGEL LUIS ####[place] [address] .NEUABSon 12-13-2020 Neutrophil, Absolute 9.30 10 3/mcL High 2.25-8.10 [facility] ([place]) Comment on above: Performed By: #### TRUPTI TATE ANEU ####[place] [address] CBCon 12-13-2020 Erythrocyte distribution width (RBC) [Ratio] 13.8 % Normal 11.5-15.5 [facility] ([place] Comment on above: Performed By: #### TRUPTI TATE ANEU ####[place] [address] Hematocrit (Bld) [Volume fraction] 29.9 % Low 34.0-46.0 [facility] ([place] Comment on above: Performed By: #### TRUPTI TATE ANEU ####[place] [address] Hgb 9.9 G/dL Low 12.0-16.0 [facility] ([place] Comment on above: Performed By: #### TRUPTI TATE, ANGEL LUIS ####[place] [address] MCH (RBC) [Entitic mass] 31.9 pg Normal 27.0-33.0 [facility] ([place] Comment on above: Performed By: #### TRUPTI TATE, ANEU ####[place] [address] MCHC 33.2 G/dL Normal 32.0-36.0 [facility] ([place] Comment on above: Performed By: #### C TRUPTI PINON, ANEU ####[address] [address] MCV (RBC) [Entitic vol] 96.1 fL Normal 80.0-99.0 [facility] ([place] Comment on above: Performed By: #### TRUPTI TATE, ANEU ####[address] [address] Platelet 312 10 3/mcL Normal 150-450 [facility] [place] Comment on above: Performed By: #### TRUPTI TATE, ANEU ####[place] [address] Platelet mean volume (Bld) [Entitic vol] 9.0 fL Normal 6.6-10.5 [facility] ([place] Comment on above: Performed By: #### TRUPTI TATE, ANEU ####[place] [address] RBC 3.11 10 6/mcL Low 4.10-5.30 [facility] ([place]) Comment on above: Performed By: #### TRUPTI TATE, ANEU ####[place] [address] WBC 13.30 10 3/mcL High 4.50-10.80 [facility] ([place]) Comment on above: Performed By: #### C TRUPTI PINON, ANEU ####[place] [address] .Auto Diffon 12-11-2020 Basophil, Absolute 0.10 10 3/mcL Normal 0.00-0.27 [facility] ([place] Comment on above: Performed By: #### TRUPTI TATE, ANEU ####[place] [id number] Basophils/100 WBC (Bld) 0.5 % Normal 0.0-2.5 [facility] ([place] Comment on above: Performed By: #### TRUPTI TATE, ANEU ####[place] [address] Eosinophil, Absolute 0.50 10 3/mcL Normal 0.00-0.65 [facility] ([place] Comment on above: Performed By: #### TRUPTI TATE ANEU ####[address] [address] Eosinophils/100 WBC (Bld) 3.6 % Normal 0.0-6.0 [facility] ([place]) Comment on above: Performed By: #### C TRUPTI PINON ANEU ####[address] [address] Lymphocyte, Absolute 1.40 10 3/mcL Normal 0.90-4.32 [facility] ([place]) Comment on above: Performed By: #### C TRUPTI PINON ANEU ####[address] [address] Lymphocytes/100 WBC (Bld) 11.1 % Low 20.0-40.0 [facility] ([place]) Comment on above: Performed By: #### TRUPTI TATE ANEU ####[address] [address] Monocyte, Absolute 1.20 10 3/mcL Normal 0.09-1.40 [facility] ([place]) Comment on above: Performed By: #### C TRUPTI PINON, ANEU ####[address] [address] Monocytes/100 WBC (Bld) 9.5 % Normal 2.0-13.0 [facility] ([place] Comment on above: Performed By: #### C TRUPTI PINON, ANEU ####[address] [address] Neutrophils/100 WBC (Bld) 75.3 % High 50.0-75.0 [facility] ([place]) Comment on above: Performed By: #### TRUPTI TATE, ANEU ####[address] [address] .NEUABSon 12-11-2020 Neutrophil, Absolute 9.60 10 3/mcL High 2.25-8.10 [facility] ([place] Comment on above: Performed By: #### TRUPTI TATE, ANEU ####[address] [address] CBCon 12-11-2020 Erythrocyte distribution width (RBC) [Ratio] 13.7 % Normal 11.5-15.5 [facility] ([place] Comment on above: Performed By: #### C TRUPTI PINON, ANEU ####[place] [address] Hematocrit (Bld) [Volume fraction] 32.2 % Low 34.0-46.0 [facility] ([place] Comment on above: Performed By: #### C TRUPTI PINON, ANEU ####[place] [address] Hgb 10.4 G/dL Low 12.0-16.0 [facility] ([place] Comment on above: Performed By: #### C TRUPTI PINON ANEU ####[place] [address] MCH (RBC) [Entitic mass] 31.1 pg Normal 27.0-33.0 [facility] ([place] Comment on above: Performed By: #### C TRUPTI PINON, ANEU ####[place] [address] MCHC 32.5 G/dL Normal 32.0-36.0 [facility] ([place] Comment on above: Performed By: #### C TRUPTI PINON, ANEU ####[place] [address] MCV (RBC) [Entitic vol] 95.8 fL Normal 80.0-99.0 [facility] ([place] Comment on above: Performed By: #### C TRUPTI PINON, ANEU ####[place] [address] Platelet 320 10 3/mcL Normal 150-450 [facility] [place] Comment on above: Performed By: #### TRUPTI TATE, ANEU ####[place] [address] Platelet mean volume (Bld) [Entitic vol] 9.5 fL Normal 6.6-10.5 [facility] ([place] Comment on above: Performed By: #### C TRUPTI PINON, ANEU ####[facility] [place] [address] RBC 3.36 10 6/mcL Low 4.10-5.30 [facility] ([place]) Comment on above: Performed By: #### C TRUPTI PINON, ANEU ####[facility] [place] [address] WBC 12.70 10 3/mcL High 4.50-10.80 [facility] ([place]) Comment on above: Performed By: #### C TRUPTI PINON, ANEU ####[facility] [place] [address] .Auto Diffon 12-10-2020 Basophil, Absolute 0.10 10 3/mcL Normal 0.00-0.27 [facility] ([place]) Comment on above: Performed By: #### T SH, FT4 #### [address] [address] Basophils/100 WBC (Bld) 0.6 % Normal 0.0-2.5 [facility] ([place] Comment on above: Performed By: #### T SH, FT4 #### [address] [address] Eosinophil, Absolute 0.40 10 3/mcL Normal 0.00-0.65 [facility] ([place] Comment on above: Performed By: #### T SH, FT4 #### [address] [address] Eosinophils/100 WBC (Bld) 3.2 % Normal 0.0-6.0 [facility] ([place] Comment on above: Performed By: #### T SH, FT4 #### [address] [address] Lymphocyte, Absolute 1.90 10 3/mcL Normal 0.90-4.32 [facility] ([place] Comment on above: Performed By: #### T SH, FT4 #### [address] [address] Lymphocytes/100 WBC (Bld) 15.2 % Low 20.0-40.0 [facility] ([place] Comment on above: Performed By: #### T SH, FT4 #### [address] [address] Monocyte, Absolute 1.30 10 3/mcL Normal 0.09-1.40 [facility] ([place] Comment on above: Performed By: #### T SH, FT4 #### [address] [address] Monocytes/100 WBC (Bld) 10.3 % Normal 2.0-13.0 [facility] ([place] Comment on above: Performed By: #### T SH, FT4 #### [address] [address] Neutrophils/100 WBC (Bld) 70.7 % Normal 50.0-75.0 [facility] ([place] Comment on above: Performed By: #### T SH, FT4 #### [address] [address] .GFRon 12-10-2020 GFR >60 Normal [facility] ([place]) Comment on above: Result Comment: GFR Population mean for , Non- Americans Ages 20-29 = 116 mL/min/1.73 sq.m. Ages 30-39 = 107 mL/min/1.73 sq.m. Ages 40-49 = 99 mL/min/1.73 sq.m. Ages 50-59 = 93 mL/min/1.73 sq.m. Ages 60-69 = 85 mL/min/1.73 sq.m. Ages 70+ = 75 mL/min/1.73 sq.m. Chronic Kidney Disease: Less than 60 mL/min/1.73 square meters End Stage Renal Disease: Less than 15 mL/min/1.73 square meters Performed By: #### T SH, FT4 #### [address] [address] GFR Non- 60 ml/min/1.73sqm Normal [facility] ([place]) Comment on above: Result Comment: GFR Population mean for , Non- Americans Ages 20-29 = 116 mL/min/1.73 sq.m. Ages 30-39 = 107 mL/min/1.73 sq.m. Ages 40-49 = 99 mL/min/1.73 sq.m. Ages 50-59 = 93 mL/min/1.73 sq.m. Ages 60-69 = 85 mL/min/1.73 sq.m. Ages 70+ = 75 mL/min/1.73 sq.m. Chronic Kidney Disease: Less than 60 mL/min/1.73 square meters End Stage Renal Disease: Less than 15 mL/min/1.73 square meters Performed By: #### T SHELLIE, FT4 #### [address] [address] .NEUABSon 12-10-2020 Neutrophil, Absolute 9.00 10 3/mcL High 2.25-8.10 [facility] ([place]) Comment on above: Performed By: #### T SHELLIE, FT4 #### [address] [address] BMPon 12-10-2020 BUN/Creatinine Ratio 27.5 ratio High 10.0-22.0 [facility] ([place]) Comment on above: Performed By: #### T SHELLIE, FT4 #### [address] [address] Calcium [Mass/Vol] 9.2 mg/dL Normal 8.7-10.4 [facility] ([place] Comment on above: Result Comment: No te - New Reference Range in effect 19 Performed By: #### T SHELLIE, FT4 #### [address] [address] Chloride [Moles/Vol] 101 mmol/L Normal 98-110 [facility] ([place] Comment on above: Performed By: #### Dex HENSLEY, FT4 #### [address] [address] CO2 [Moles/Vol] 27 mmol/L Normal 22-32 [facility] [place] Comment on above: Performed By: #### T SHELLIE, FT4 #### [address] [address] Creatinine [Mass/Vol] 0.91 mg/dL Normal 0.50-1.20 [facility] ([place] Comment on above: Performed By: #### T SHELLIE, FT4 #### [address] [address] Electrolyte Balance 7.0 mEq/L Normal 4.0-15.0 [facility] ([place] Comment on above: Performed By: #### T SHELLIE, FT4 #### [address] [address] Glucose [Mass/Vol] 113 mg/dL Normal 82-115 [facility] ([place] Comment on above: Performed By: #### T SHELLIE, FT4 #### [address] [address] Potassium [Moles/Vol] 4.4 mmol/L Normal 3.5-5.0 [facility] ([place] Comment on above: Performed By: #### T SHELLIE, FT4 #### [address] [address] Sodium [Moles/Vol] 135 mmol/L Low 136-145 [facility] ([place] Comment on above: Performed By: #### T SHELLIE, FT4 #### [address] [address] Urea nitrogen [Mass/Vol] 25.0 mg/dL High 8.0-22.0 [facility] ([place] Comment on above: Performed By: #### T SHELLIE, FT4 #### [address] [address] CBCon 12-10-2020 Erythrocyte distribution width (RBC) [Ratio] 13.6 % Normal 11.5-15.5 [facility] ([place] Comment on above: Performed By: #### T SHELLIE, FT4 #### [address] [address] Hematocrit (Bld) [Volume fraction] 33.9 % Low 34.0-46.0 [facility] ([place] Comment on above: Performed By: #### T SHELLIE, FT4 #### [address] [address] Hgb 11.3 G/dL Low 12.0-16.0 [facility] ([place] Comment on above: Performed By: #### T SHELLIE, FT4 #### [address] [address] MCH (RBC) [Entitic mass] 31.4 pg Normal 27.0-33.0 [facility] ([place] Comment on above: Performed By: #### T SHELLIE, FT4 #### [address] [address] MCHC 33.2 G/dL Normal 32.0-36.0 [facility] ([place] Comment on above: Performed By: #### T SHELLIE, FT4 #### [place] [phone] MCV (RBC) [Entitic vol] 94.5 fL Normal 80.0-99.0 [facility] ([place] Comment on above: Performed By: #### T SHELLIE, FT4 #### [place] [id number] Platelet 362 10 3/mcL Normal 150-450 [facility] [place] Comment on above: Performed By: #### T SHELLIE, FT4 #### [place] [address] Platelet mean volume (Bld) [Entitic vol] 9.9 fL Normal 6.6-10.5 [facility] ([place] Comment on above: Performed By: #### T SHELLIE, FT4 #### [place] [id number] RBC 3.59 10 6/mcL Low 4.10-5.30 [facility] ([place] Comment on above: Performed By: #### T SHELLIE, FT4 #### [address] [address] WBC 12.70 10 3/mcL High 4.50-10.80 [facility] ([place] Comment on above: Performed By: #### T SHELLIE, FT4 #### [address] [address] FT4on 12-10-2020 Free T4 1.30 mcg/dL Normal 0.89-1.76 [facility] ([place]) Comment on above: Result Comment: No te - New Reference Range in effect 19 Performed By: #### T SHELLIE, FT4 #### [place] [phone] TSHon 12-10-2020 TSH 3.193 mIU/mL Normal 0.550-4.780 [facility] ([place] Comment on above: Result Comment: No te - New Reference Range in effect 19 Performed By: #### T SHELLIE, FT4 #### [place] [address] VIDHon 12-10-2020 Vit. D 25-Hydroxy 36.4 ng/mL Normal [facility] ([place]) Comment on above: Result Comment: Inte rpretive Values Based on Total 25(OH)D: Severe Deficiency <20 ng/mL Mild to Moderate Deficiency 20-30 ng/mL Optimum Levels 30-100 ng/mL Toxicity Possible >100 ng/mL Performed By: #### Dex HENSLEY, FT4 #### [place] [address] .Auto Diffon 12-08-2020 Basophil, Absolute 0.00 10 3/mcL Normal 0.00-0.27 [facility] ([place]) Comment on above: Performed By: #### C BC, ADIFF, ANEU, BMP, MG, GFR #### [place] [phone] Basophils/100 WBC (Bld) 0.5 % Normal 0.0-2.5 [facility] ([place] Comment on above: Performed By: #### C BC, ADIFF, ANEU, BMP, MG, GFR #### [address] [address] Eosinophil, Absolute 0.20 10 3/mcL Normal 0.00-0.65 [facility] ([place] Comment on above: Performed By: #### C BC, ADIFF, ANEU, BMP, MG, GFR #### [place] [phone] Eosinophils/100 WBC (Bld) 2.8 % Normal 0.0-6.0 [facility] ([place] Comment on above: Performed By: #### C BC, ADIFF, ANEU, BMP, MG, GFR #### [address] [address] Lymphocyte, Absolute 1.70 10 3/mcL Normal 0.90-4.32 [facility] ([place] Comment on above: Performed By: #### C BC, ADIFF, ANEU, BMP, MG, GFR #### [address] [address] Lymphocytes/100 WBC (Bld) 20.5 % Normal 20.0-40.0 [facility] ([place] Comment on above: Performed By: #### C BC, ADIFF, ANEU, BMP, MG, GFR #### [address] [address] Monocyte, Absolute 0.90 10 3/mcL Normal 0.09-1.40 [facility] ([place] Comment on above: Performed By: #### C BC, ADIFF, ANEU, BMP, MG, GFR #### [address] [address] Monocytes/100 WBC (Bld) 10.9 % Normal 2.0-13.0 [facility] ([place] Comment on above: Performed By: #### C BC, ADIFF, ANEU, BMP, MG, GFR #### [address] [address] Neutrophils/100 WBC (Bld) 65.3 % Normal 50.0-75.0 [facility] ([place] Comment on above: Performed By: #### C BC, ADIFF, ANEU, BMP, MG, GFR #### [address] [address] .GFRon 12-08-2020 GFR Non- 60 ml/min/1.73sqm Normal [facility] ([place]) Comment on above: Result Comment: GFR Population mean for , Non- Americans Ages 20-29 = 116 mL/min/1.73 sq.m. Ages 30-39 = 107 mL/min/1.73 sq.m. Ages 40-49 = 99 mL/min/1.73 sq.m. Ages 50-59 = 93 mL/min/1.73 sq.m. Ages 60-69 = 85 mL/min/1.73 sq.m. Ages 70+ = 75 mL/min/1.73 sq.m. Chronic Kidney Disease: Less than 60 mL/min/1.73 square meters End Stage Renal Disease: Less than 15 mL/min/1.73 square meters Performed By: #### T SHELLIE, FT4 #### [address] [address] GFR >60 Normal [facility] ([place]) Comment on above: Result Comment: GFR Population mean for , Non- Americans Ages 20-29 = 116 mL/min/1.73 sq.m. Ages 30-39 = 107 mL/min/1.73 sq.m. Ages 40-49 = 99 mL/min/1.73 sq.m. Ages 50-59 = 93 mL/min/1.73 sq.m. Ages 60-69 = 85 mL/min/1.73 sq.m. Ages 70+ = 75 mL/min/1.73 sq.m. Chronic Kidney Disease: Less than 60 mL/min/1.73 square meters End Stage Renal Disease: Less than 15 mL/min/1.73 square meters Performed By: #### Dex HENSLEY, FT4 #### [address] [address] .NEUABSon 12-08-2020 Neutrophil, Absolute 5.40 10 3/mcL Normal 2.25-8.10 [facility] ([place]) Comment on above: Performed By: #### C BC, ADIFF, ANEU, BMP, MG, GFR #### [address] [address] BMPon 12-08-2020 BUN/Creatinine Ratio 29.3 ratio High 10.0-22.0 [facility] ([place] Comment on above: Performed By: #### C BC, ADIFF, ANEU, BMP, MG, GFR #### [address] [address] Calcium [Mass/Vol] 8.7 mg/dL Normal 8.7-10.4 [facility] ([place] Comment on above: Result Comment: No te - New Reference Range in effect 19 Performed By: #### C BC, ADIFF, ANEU, BMP, MG, GFR #### [address] [address] Chloride [Moles/Vol] 111 mmol/L High 98-110 [facility] ([place] Comment on above: Performed By: #### C BC, ADIFF, ANEU, BMP, MG, GFR #### [address] [address] CO2 [Moles/Vol] 26 mmol/L Normal 22-32 [facility] [place] Comment on above: Performed By: #### C BC, ADIFF, ANEU, BMP, MG, GFR #### [address] [address] Creatinine [Mass/Vol] 0.92 mg/dL Normal 0.50-1.20 [facility] ([place] Comment on above: Performed By: #### C BC, ADIFF, ANEU, BMP, MG, GFR #### [address] [address] Electrolyte Balance 5.0 mEq/L Normal 4.0-15.0 [facility] ([place] Comment on above: Performed By: #### C BC, ADIFF, ANEU, BMP, MG, GFR #### [address] [address] Glucose [Mass/Vol] 103 mg/dL Normal 82-115 [facility] ([place] Comment on above: Performed By: #### C BC, ADIFF, ANEU, BMP, MG, GFR #### [address] [address] Potassium [Moles/Vol] 4.3 mmol/L Normal 3.5-5.0 [facility] ([place] Comment on above: Performed By: #### C BC, ADIFF, ANEU, BMP, MG, GFR #### [address] [address] Sodium [Moles/Vol] 142 mmol/L Normal 136-145 [facility] ([place] Comment on above: Performed By: #### C BC, ADIFF, ANEU, BMP, MG, GFR #### [place] [address] Urea nitrogen [Mass/Vol] 27.0 mg/dL High 8.0-22.0 [facility] ([place]) Comment on above: Performed By: #### C BC, ADIFF, ANEU, BMP, MG, GFR #### [place] [phone] CBCon 12-08-2020 Erythrocyte distribution width (RBC) [Ratio] 13.8 % Normal 11.5-15.5 [facility] ([place] Comment on above: Performed By: #### C BC, ADIFF, ANEU, BMP, MG, GFR #### [place] [address] Hematocrit (Bld) [Volume fraction] 31.5 % Low 34.0-46.0 [facility] ([place] Comment on above: Performed By: #### C BC, ADIFF, ANEU, BMP, MG, GFR #### [place] [address] Hgb 10.6 G/dL Low 12.0-16.0 [facility] ([place] Comment on above: Performed By: #### C BC, ADIFF, ANEU, BMP, MG, GFR #### [place] [address] MCH (RBC) [Entitic mass] 31.3 pg Normal 27.0-33.0 [facility] ([place] Comment on above: Performed By: #### C BC, ADIFF, ANEU, BMP, MG, GFR #### [place] [address] MCHC 33.6 G/dL Normal 32.0-36.0 [facility] ([place] Comment on above: Performed By: #### C BC, ADIFF, ANEU, BMP, MG, GFR #### [place] [address] MCV (RBC) [Entitic vol] 93.4 fL Normal 80.0-99.0 [facility] ([place] Comment on above: Performed By: #### C BC, ADIFF, ANEU, BMP, MG, GFR #### [place] [address] Platelet 280 10 3/mcL Normal 150-450 [facility] [place] Comment on above: Performed By: #### C BC, ADIFF, ANEU, BMP, MG, GFR #### [place] [address] Platelet mean volume (Bld) [Entitic vol] 8.9 fL Normal 6.6-10.5 [facility] ([place] Comment on above: Performed By: #### C BC, ADIFF, ANEU, BMP, MG, GFR #### [place] [address] RBC 3.37 10 6/mcL Low 4.10-5.30 [facility] ([place] Comment on above: Performed By: #### C BC, ADIFF, ANEU, BMP, MG, GFR #### [place] [address] WBC 8.30 10 3/mcL Normal 4.50-10.80 [facility] ([place] Comment on above: Performed By: #### C BC, ADIFF, ANEU, BMP, MG, GFR #### [place] [address] MGon 12-08-2020 Magnesium [Mass/Vol] 2.1 mg/dL Normal 1.6-2.4 [facility] ([place]) Comment on above: Performed By: #### T SH, FT4 #### [place] [address] CT HEAD OR BRAIN W/O CONTRAS Ton 12-07-2020 CT HEAD OR BRAIN W/O CONTRAST ORIGINAL EXAMINATION: CT OF THE HEAD WITHOUT CONTRAST 12/07/2020 8:25 pm TECHNIQUE: CT of the head was performed without the administration of intravenous contrast. Dose modulation, iterative reconstruction, and/or weight based adjustment of the mA/kV was utilized to reduce the radiation dose to as low as reasonably achievable. COMPARISON: None. HISTORY: ORDERING SYSTEM PROVIDED HISTORY: pain; trauma patient Reason for Exam: pain; trauma patient, fall FINDINGS: No acute intracranial hemorrhage, mass, mass effect or abnormal extra-axial fluid collection. Duran-white matter differentiation is preserved. Mild age related involutional changes. Age appropriate ventricles. Mild supratentorial white matter disease, stable and most consistent chronic microvascular angiopathy. Globes and orbits are intact. Paranasal sinuses and tympanomastoid cavities are clear. Calvarium and skull base are intact. IMPRESSION: No acute intracranial abnormality. Mild age related involutional, and chronic ischemic changes, similar to comparison exam 02/08/2020. I have personally reviewed the images of this examination and agree with the resident's findings and interpretation. Interpreted by: Lan Luke MD Preliminary Report By: Donavon Blackmon MD Electronically signed By Lan Lkue MD Dictated Date: 12/07/2020 8:37:33 PM Prelim Date: 12/07/2020 8:40:32 PM Sign Date: 12/07/2020 8:56:27 PM Ordering Provider: FAVIAN CABELLO [facility] ([place] CT MAXILLOFACIAL W/O CONTRAS Ton 12-07-2020 CT MAXILLOFACIAL W/O CONTRAST ORIGINAL EXAMINATION: CT OF THE FACE WITHOUT CONTRAST 12/07/2020 8:29 pm TECHNIQUE: CT of the face was performed without the administration of intravenous contrast. Multiplanar reformatted images are provided for review. Dose modulation, iterative reconstruction, and/or weight based adjustment of the mA/kV was utilized to reduce the radiation dose to as low as reasonably achievable. Metal artifact reduction technique was utilized. COMPARISON: None HISTORY: ORDERING SYSTEM PROVIDED HISTORY: pain; trauma patient Reason for Exam: pain; trauma patient FINDINGS: Imaging through the oral cavity is degraded by streak artifact. There may be a tiny buckle deformity at the articulation of the right frontal maxillary process and right nasal bone. Remaining osseous structures appear intact. Paranasal sinuses and tympanomastoid cavities are clear. Globes and orbits are intact. IMPRESSION: Questionable tiny buckle deformity/fracture at the articulation of the right max frontal maxillary process and right nasal bone. Otherwise, osseous structures are intact. I have personally reviewed the images of this examination and agree with the resident's findings and interpretation. Interpreted by: Lan Luke MD Preliminary Report By: Donavon Blackmon MD Electronically signed By Lan Luke MD Dictated Date: 12/07/2020 8:49:01 PM Prelim Date: 12/07/2020 8:53:01 PM Sign Date: 12/07/2020 8:58:05 PM Ordering Provider: FAVIAN CABELLO [facility]) CT SPINE CERVICAL W/O CONTRA STon 12-07-2020 CT SPINE CERVICAL W/O CONTRAST ORIGINAL EXAMINATION: CT OF THE CERVICAL SPINE WITHOUT CONTRAST 12/07/2020 8:29 pm TECHNIQUE: CT of the cervical spine was performed without the administration of intravenous contrast. Multiplanar reformatted images are provided for review. Dose modulation, iterative reconstruction, and/or weight based adjustment of the mA/kV was utilized to reduce the radiation dose to as low as reasonably achievable. COMPARISON: None. HISTORY: ORDERING SYSTEM PROVIDED HISTORY: pain; trauma patient Reason for Exam: pain; trauma patient FINDINGS: No traumatic malalignment. No acute vertebral body height loss. Unchanged chronic C5-6 mild vertebral body height loss. Moderate mid/lower cervical spine degenerative change. Prevertebral soft tissues demonstrate no acute abnormality. Acute left humeral surgical neck/proximal metaphyseal fractures noted on windows systems administrator view. IMPRESSION: No acute abnormality of the cervical spine. Moderate degenerative changes through the cervical spine. Left humeral acute fracture noted on windows systems administrator view. I have personally reviewed the images of this examination and agree with the resident's findings and interpretation. Interpreted by: Lan Luke MD Preliminary Report By: Donavon Blackmon MD Electronically signed By Lan Luke MD Dictated Date: 12/07/2020 8:40:46 PM Prelim Date: 12/07/2020 8:43:46 PM Sign Date: 12/07/2020 8:57:26 PM Ordering Provider: FAVIAN CABELLO [facility] [place]) XR SHOULDER MINIMUM 2 VIEWS LEFTon 12-07-2020 XR SHOULDER MINIMUM 2 VIEWS LEFT ORIGINAL EXAMINATION: TWO XRAY VIEWS OF THE LEFT SHOULDER 12/07/2020 6:57 pm COMPARISON: None. HISTORY: ORDERING SYSTEM PROVIDED HISTORY: pain Reason for Exam: pain, fall FINDINGS: Acute impacted left humeral surgical neck fracture with moderate medial and posterior apex angulation. There is moderate posterior displacement approximately 1.2 cm.. Fracture margin extends from the surgical neck to the proximal diaphysis. Glenohumeral articulation appears preserved. Acromioclavicular and coracoclavicular intervals are intact. Included thoracic structures are unremarkable. IMPRESSION: Acute moderately angulated and moderately displaced fracture of the left humerus extending from the surgical neck to the proximal diaphysis. Several smaller comminuted fragments are suspected along the primary fracture margin. I have personally reviewed the images of this examination and agree with the resident's findings and interpretation. Interpreted by: Lan Luke MD Preliminary Report By: Donavon Blackmon MD Electronically signed By Lan Luke MD Dictated Date: 12/07/2020 7:03:42 PM Prelim Date: 12/07/2020 7:05:56 PM Sign Date: 12/07/2020 7:15:53 PM Ordering Provider: FAVIAN CABELLO [facility] ([place]) FT4on 11-13-2020 Free T4 1.33 mcg/dL Normal 0.89-1.76 [facility] ([place]) Comment on above: Result Comment: No te - New Reference Range in effect 19 Performed By: #### T , FT4 #### [place] [address] TSHon 11-13-2020 TSH 2.416 mIU/mL Normal 0.550-4.780 [facility] ([place]) Comment on above: Result Comment: No te - New Reference Range in effect 19 Performed By: #### T , FT4 #### [address] [address] Progress Noteon 09-22-2017 HIM IP Note OR Economic Development Director Normal [facility] HIM IP Note OR Economic Development Director Normal [facility] Clinical Note 12-19-2020 Note Date & Type Note Facility 12-19-2020 Note . MICRO - Microbiology PROCEDURE: Urine Culture [*1] SOURCE: Urine BODY SITE: COLLECTED DATE/TIME: 12/13/2020 18:32 EDT RECEIVED DATE/TIME: 12/14/2020 12:00 EDT START DATE/TIME: 12/14/2020 12:00 EDT FREE TEXT SOURCE: FINAL REPORTS Final Report [] Verified Date/Time/Personnel: 12/19/2020 15:02 EDT 50,000 - 100,000 cfu/ml Klebsiella pneumoniae subsp pneumoniae Confirmatory testing for ESBL production negative. The finding that isolates which initially screen positive but then have negative confirmatory testing may be due to the presence of other beta-lactamases such as Amp-C. 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 Confirmation of suspected ESBL production in progress. Final results to follow. 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 Confirmation of suspected ESBL production in progress. Final results to follow. >100,000 cfu/ml Presumptive Group D, non Enterococcus Final identification and NGOC to follow. Preliminary Report [] Verified Date/Time/Personnel: 12/15/2020 09:19 EDT Culture results pending. SUSCEPTIBILITY RESULTS Klebsiella pneumoniae subsp pneumoniae Antibiotic NGOC Dilut NGOC Inter Ampicillin <=8 Susceptible Ampicillin/ <=4/2 Susceptible Sulbactam Aztreonam <=4 Susceptible Cefazolin <=2 Susceptible Ciprofloxacin <=0.25 Susceptible Ertapenem <=0.5 Susceptible Gentamicin <=2 Susceptible Imipenem <=1 Susceptible Levofloxacin <=0.5 Susceptible Meropenem <=1 Susceptible Nitrofurantoin 64 Intermediate Trimethoprim/ <=0.5/9.5 Susceptible Sulfa Presumptive Group D, non Enterococcus Antibiotic NGOC Dilut NGOC Inter Cefotaxime <=0.25 Susceptible Penicillin 0.06 Susceptible Vancomycin 0.5 Susceptible Performing Locations *1: This test was performed at: [facility], [address] [place] [address], [id number] , [facility] ([place]) Comment on above: Performed By: #### C UR ####[address] [address] Summary Purpose Family History No Family History Records FoundNo Family History Records Found Advance Directives No Advanced Directives Records FoundNo Advanced Directives Records Found Additional Source Comments INFORMATION SOURCE (unrecogn ized section and content) DATE CREATED AUTHOR 12/01/2017 [facility] DATE CREATED AUTHOR AUTHOR'S LENNY DE LA FUENTE 09/21/2021 [facility]rian ([place]) FOR RECORDS PERTAINING TO PATIENTS WHO ARE OR HAVE BEEN ENROLLED IN A CHEMICAL DEPENDENCY/SUBSTANCEABUSE PROGRAM, SOME INFORMATION MAY BE OMITTED. This clinical summary was aggregated from multiple sources. Caution should be exercised in using it in the provision of clinical care. This summary normalizes information from multiple sources, and as a consequence, information in this document may materially change the coding, format and clinical context of patient data. In addition, data may be omitted in some cases. CLINICAL DECISIONS SHOULD BE BASED ON THE PRIMARY CLINICAL RECORDS. [employer] [facility]. provides no warranty or guarantee of the accuracy or completeness of information in this document.
[2024-04-19] MEDS: Enoxaparin 150 MG/ML Syringe SC (00:52)
--- OUTSIDE RECORDS SUMMARY | 2024-04-19 01:48 | XMS RPT_ITS | CCD ---
Author Organization [place] [email or web address] [facility] Results Test Name Value Interpretation Reference Range Facility .Auto Diffon 09-14-2021 Basophil, Absolute 0.00 10 3/mcL Normal 0.00-0.27 [facility] ([place]) Comment on above: Performed By: #### C BC, ADIFF, ANEU, BMP, MG, GFR #### [address] [address] Basophils/100 WBC (Bld) 0.2 % Normal 0.0-2.5 [facility] ([place] Comment on above: Performed By: #### C BC, ADIFF, ANEU, BMP, MG, GFR #### [address] [address] Eosinophil, Absolute 0.40 10 3/mcL Normal 0.00-0.65 [facility] ([place] Comment on above: Performed By: #### C BC, ADIFF, ANEU, BMP, MG, GFR #### [address] [address] Eosinophils/100 WBC (Bld) 5.7 % Normal 0.0-6.0 [facility] ([place] Comment on above: Performed By: #### C BC, ADIFF, ANEU, BMP, MG, GFR #### [address] [address] Lymphocyte, Absolute 2.20 10 3/mcL Normal 0.90-4.32 [facility] ([place]) Comment on above: Performed By: #### C BC, ADIFF, ANEU, BMP, MG, GFR #### [address] [address] Lymphocytes/100 WBC (Bld) 31.7 % Normal 20.0-40.0 [facility] ([place] Comment on above: Performed By: #### C BC, ADIFF, ANEU, BMP, MG, GFR #### [address] [address] Monocyte, Absolute 0.90 10 3/mcL Normal 0.09-1.40 [facility] ([place] Comment on above: Performed By: #### C BC, ADIFF, ANEU, BMP, MG, GFR #### [address] [address] Monocytes/100 WBC (Bld) 13.3 % High 2.0-13.0 [facility] ([place] Comment on above: Performed By: #### C BC, ADIFF, ANEU, BMP, MG, GFR #### [address] [address] Neutrophils/100 WBC (Bld) 49.1 % Low 50.0-75.0 [facility] ([place] Comment on above: Performed By: #### C BC, ADIFF, ANEU, BMP, MG, GFR #### [address] [address] .GFRon 09-14-2021 GFR 60 ml/min/1.73sqm Normal [facility] ([place] Comment on above: Result Comment: GFR Population [...] BC, ADIFF, ANEU, BMP, MG, GFR #### [address] [address] GFR Non- 49 ml/min/1.73sqm Normal [facility] ([place] Comment on above: Result Comment: GFR Population [...] BC, ADIFF, ANEU, BMP, MG, GFR #### [place] [address] .NEUABSon 09-14-2021 Neutrophil, Absolute 3.30 10 3/mcL Normal 2.25-8.10 [facility] ([place] Comment on above: Performed By: #### C BC, ADIFF, ANEU, BMP, MG, GFR #### [place] [address] CBCon 09-14-2021 Erythrocyte distribution width (RBC) [Ratio] 14.3 % Normal 11.5-15.5 [facility] ([place] Comment on above: Performed By: #### C BC, ADIFF, ANEU, FERR, CMP, TSH, GFR, LIPID, HCV1 ####[place] [address] Hematocrit (Bld) [Volume fraction] 38.2 % Normal 34.0-46.0 [facility] ([place] Comment on above: Performed By: #### C BC, ADIFF, ANEU, FERR, CMP, TSH, GFR, LIPID, HCV1 ####[place] [address] Hgb 13.0 G/dL Normal 12.0-16.0 [facility] ([place] Comment on above: Performed By: #### C BC, ADIFF, ANEU, FERR, CMP, TSH, GFR, LIPID, HCV1 ####[place] [address] MCH (RBC) [Entitic mass] 33.0 pg Normal 27.0-33.0 [facility] ([place] Comment on above: Performed By: #### C BC, ADIFF, ANEU, FERR, CMP, TSH, GFR, LIPID, HCV1 ####[place] [address] MCHC 33.9 G/dL Normal 32.0-36.0 [facility] ([place] Comment on above: Performed By: #### C BC, ADIFF, ANEU, FERR, CMP, TSH, GFR, LIPID, HCV1 ####[place] [address] MCV (RBC) [Entitic vol] 97.1 fL Normal 80.0-99.0 [facility] ([place] Comment on above: Performed By: #### C BC, ADIFF, ANEU, FERR, CMP, TSH, GFR, LIPID, HCV1 ####[place] [address] Platelet 297 10 3/mcL Normal 150-450 [facility] ([place]) Comment on above: Performed By: #### C BC, ADIFF, ANEU, FERR, CMP, TSH, GFR, LIPID, HCV1 ####[place] [address] Platelet mean volume (Bld) [Entitic vol] 10.1 fL Normal 6.6-10.5 [facility] ([place] Comment on above: Performed By: #### C BC, ADIFF, ANEU, FERR, CMP, TSH, GFR, LIPID, HCV1 ####[place] [address] RBC 3.93 10 6/mcL Low 4.10-5.30 [facility] ([place] Comment on above: Performed By: #### C BC, ADIFF, ANEU, FERR, CMP, TSH, GFR, LIPID, HCV1 ####[place] [address] WBC 6.80 10 3/mcL Normal 4.50-10.80 [facility] ([place] Comment on above: Performed By: #### C BC, ADIFF, ANEU, FERR, CMP, TSH, GFR, LIPID, HCV1 ####[place] [address] CMPon 09-14-2021 Albumin Level 3.8 G/dL Normal 3.2-4.8 [facility] ([place] Comment on above: Performed By: #### C BC, ADIFF, ANEU, BMP, MG, GFR #### [place] [address] Albumin/Globulin [Mass ratio] 1.3 {ratio} Normal 0.9-1.6 [facility] ([place] Comment on above: Performed By: #### C BC, ADIFF, ANEU, BMP, MG, GFR #### [place] [address] ALP [Catalytic activity/Vol] 96 U/L Normal 38-126 [facility] ([place] Comment on above: Performed By: #### C BC, ADIFF, ANEU, BMP, MG, GFR #### [place] [address] ALT [Catalytic activity/Vol] 15 U/L Normal 10-49 [facility] ([place] Comment on above: Performed By: #### C BC, ADIFF, ANEU, BMP, MG, GFR #### [place] [address] AST [Catalytic activity/Vol] 21 U/L Normal 8-34 [facility] ([place] Comment on above: Performed By: #### C BC, ADIFF, ANEU, BMP, MG, GFR #### [place] [address] Bili Total 0.50 mg/dL Normal 0.20-1.20 [facility] ([place] Comment on above: Result Comment: Use of this assay is not recommended for patients undergoing treatment with eltrombopag due to the potential for falsely elevated results. Performed By: #### C BC, ADIFF, ANEU, BMP, MG, GFR #### [address] [address] BUN/Creatinine Ratio 19.4 ratio Normal 10.0-22.0 [facility] ([place] Comment on above: Performed By: #### C BC, ADIFF, ANEU, BMP, MG, GFR #### [address] [address] Calcium [Mass/Vol] 9.4 mg/dL Normal 8.7-10.4 [facility] ([place]) Comment on above: Result Comment: No te - New Reference Range in effect 19 Performed By: #### C BC, ADIFF, ANEU, BMP, MG, GFR #### [address] [address] Chloride [Moles/Vol] 107 mmol/L Normal 98-110 [facility] ([place] Comment on above: Performed By: #### C BC, ADIFF, ANEU, BMP, MG, GFR #### [place] [id number] CO2 [Moles/Vol] 26 mmol/L Normal 22-32 [facility] ([place]) Comment on above: Performed By: #### C BC, ADIFF, ANEU, BMP, MG, GFR #### [address] [address] Creatinine [Mass/Vol] 1.08 mg/dL Normal 0.50-1.20 [facility] ([place] Comment on above: Performed By: #### C BC, ADIFF, ANEU, BMP, MG, GFR #### [address] [address] Electrolyte Balance 8.0 mEq/L Normal 4.0-15.0 [facility] ([place]) Comment on above: Performed By: #### C BC, ADIFF, ANEU, BMP, MG, GFR #### [address] [address] Globulin 3.0 G/dL Normal 1.5-3.8 [facility] ([place] Comment on above: Performed By: #### C BC, ADIFF, ANEU, BMP, MG, GFR #### [address] [address] Glucose [Mass/Vol] 86 mg/dL Normal 82-115 [facility] ([place] Comment on above: Performed By: #### C BC, ADIFF, ANEU, BMP, MG, GFR #### [address] [address] Potassium [Moles/Vol] 4.4 mmol/L Normal 3.5-5.0 [facility] ([place] Comment on above: Performed By: #### C BC, ADIFF, ANEU, BMP, MG, GFR #### [address] [address] Sodium [Moles/Vol] 141 mmol/L Normal 136-145 [facility] ([place] Comment on above: Performed By: #### C BC, ADIFF, ANEU, BMP, MG, GFR #### [place] [id number] Total Protein 6.8 G/dL Normal 5.7-8.2 [facility] ([place] Comment on above: Result Comment: No te - New Reference Range in effect 19 Performed By: #### C BC, ADIFF, ANEU, BMP, MG, GFR #### [address] [address] Urea nitrogen [Mass/Vol] 21.0 mg/dL Normal 8.0-22.0 [facility] ([place] Comment on above: Performed By: #### C BC, ADIFF, ANEU, BMP, MG, GFR #### [address] [address] Phillip 09-14-2021 Ferritin [Mass/Vol] 11.8 ng/mL Normal 8.0-252.0 [facility] ([place] Comment on above: Performed By: #### C BC, ADIFF, ANEU, BMP, MG, GFR #### [address] [address] HCVon 09-14-2021 Hep C Ab Non-Reactive Normal Non-Reactive [facility] ([place]) Comment on above: Performed By: #### C BC, ADIFF, ANEU, BMP, MG, GFR #### [address] [address] Hep C Ab Int Normal [facility] ([place]) Comment on above: Result Comment: Nonr eactive: [...] BC, ADIFF, ANEU, BMP, MG, GFR #### [address] [address] LIPIDon 09-14-2021 Cholesterol [Mass/Vol] 197 mg/dL Normal 50-199 [facility] ([place] Comment on above: Result Comment: Chol esterol Reference Interval: Less than 200 Desirable 200-239 Borderline high risk 240 and above High risk Performed By: #### C BC, ADIFF, ANEU, BMP, MG, GFR #### [address] [address] Cholesterol in HDL [Mass/Vol] 80 mg/dL High 40-59 [facility] ([place] Comment on above: Performed By: #### C BC, ADIFF, ANEU, BMP, MG, GFR #### [address] [address] Cholesterol in LDL [Mass/Vol] 105 mg/dL Normal 0-129 [facility] ([place] Comment on above: Performed By: #### C BC, ADIFF, ANEU, BMP, MG, GFR #### [address] [address] Triglyceride [Mass/Vol] 62 mg/dL Normal 3-149 [facility] ([place] Comment on above: Performed By: #### C BC, ADIFF, ANEU, BMP, MG, GFR #### [address] [address] TSHon 09-14-2021 TSH 2.024 mIU/mL Normal 0.550-4.780 [facility] ([place] Comment on above: Result Comment: No te - New Reference Range in effect 19 Performed By: #### C BC, ADIFF, ANEU, BMP, MG, GFR #### [place] [address] .Auto Diffon 01-06-2021 Basophil, Absolute 0.10 10 3/mcL Normal 0.00-0.19 [facility] ([place]) Comment on above: Performed By: #### B MP, GFR ####[place] [address]#### CBC, ADIFF, ANEU ####[facility] [place], [place] [address] Basophils/100 WBC (Bld) 0.8 % Normal 0.0-2.5 [facility] ([place]) Comment on above: Performed By: #### B MP, GFR ####[place] [address]#### CBC, ADIFF, ANEU ####[facility] [place], [place] [address] Eosinophil, Absolute 0.50 10 3/mcL High 0.00-0.40 [facility] ([place]) Comment on above: Performed By: #### B MP, GFR ####[place] [address]#### CBC, ADIFF, ANEU ####[facility] [place], [place] [address] Eosinophils/100 WBC (Bld) 7.1 % High 0.0-7.0 [facility] ([place]) Comment on above: Performed By: #### B MP, GFR ####[place] [address]#### CBC, ADIFF, ANEU ####[address] [place], [place] [address] Lymphocyte, Absolute 1.70 10 3/mcL Normal 0.77-3.85 [facility] ([place]) Comment on above: Performed By: #### B MP, GFR ####[place] [address]#### CBC, ADIFF, ANEU ####[address] [place], [place] [address] Lymphocytes/100 WBC (Bld) 24.7 % Normal 10.0-50.0 [facility] ([place]) Comment on above: Performed By: #### B MP, GFR ####[address] [address]#### CBC, ADIFF, ANEU ####[address] [place], [place] [address] Monocyte, Absolute 0.90 10 3/mcL Normal 0.15-1.00 [facility] ([place]) Comment on above: Performed By: #### B MP, GFR ####[address] [address]#### CBC, ADIFF, ANEU ####[address] [place], [place] [address] Monocytes/100 WBC (Bld) 13.5 % High 1.7-13.0 [facility] ([place]) Comment on above: Performed By: #### B MP, GFR ####[address] [address]#### CBC, ADIFF, ANEU ####[address] [place], [place] [address] Neutrophils/100 WBC (Bld) 53.9 % Normal 37.0-80.0 [facility] ([place] Comment on above: Performed By: #### B MP, GFR ####[address] [address]#### CBC, ADIFF, ANEU ####[address] [place], [place] [address] .GFRon 01-06-2021 GFR 70 ml/min/1.73sqm Normal [facility] ([place] Comment on above: Result Comment: GFR Population [...] meters Performed By: #### B MP, GFR ####[place] [address]#### CBC, ADIFF, ANEU ####[address] [place], [place] [address] GFR Non- 58 ml/min/1.73sqm Normal [facility] ([place] Comment on above: Result Comment: GFR Population [...] meters Performed By: #### B MP, GFR ####[place] [address]#### CBC, ADIFF, ANEU ####[address] [place], [place] [address] .NEUABSon 01-06-2021 Neutrophil, Absolute 3.80 10 3/mcL Normal 2.85-6.16 [facility] ([place] Comment on above: Performed By: #### B MP, GFR ####[address] [address]#### CBC, ADIFF, ANEU ####[address] [place], [place] [address] BMPon 01-06-2021 BUN/Creatinine Ratio 27 ratio Normal 7-27 [facility] ([place] Comment on above: Performed By: #### B MP, GFR ####[address] [address]#### CBC, ADIFF, ANEU ####[address] [place], [place] [address] Calcium [Mass/Vol] 9.0 mg/dL Normal 8.4-10.2 [facility] ([place]) Comment on above: Performed By: #### B MP, GFR ####[place] [address]#### CBC, ADIFF, ANEU ####[address] [place], [place] [address] Chloride [Moles/Vol] 103 mmol/L Normal 98-107 [facility] ([place] Comment on above: Performed By: #### B MP, GFR ####[place] [address]#### CBC, ADIFF, ANEU ####[address] [place], [place] [address] CO2 [Moles/Vol] 28 mmol/L Normal 23-31 [facility] ([place] Comment on above: Performed By: #### B MP, GFR ####[place] [address]#### CBC, ADIFF, ANEU ####[address] [place], [place] [address] Creatinine [Mass/Vol] 0.94 mg/dL Normal 0.55-1.02 [facility] ([place] Comment on above: Performed By: #### B MP, GFR ####[address] [address]#### CBC, ADIFF, ANEU ####[address] [place], [place] [address] Electrolyte Balance 8.0 mEq/L Normal [facility] ([place] Comment on above: Performed By: #### B MP, GFR ####[place] [address]#### CBC, ADIFF, ANEU ####[address] [place], [place] [address] Glucose [Mass/Vol] 61 mg/dL Low 83-110 [facility] ([place] Comment on above: Performed By: #### B MP, GFR ####[address] [address]#### CBC, ADIFF, ANEU ####[address] [place], [place] [address] Potassium [Moles/Vol] 4.5 mmol/L Normal 3.5-5.1 [facility] ([place] Comment on above: Performed By: #### B MP, GFR ####[place] [address]#### CBC, ADIFF, ANEU ####[address] [place], [place] [address] Sodium [Moles/Vol] 139 mmol/L Normal 136-145 [facility] ([place] Comment on above: Performed By: #### B MP, GFR ####[place] [address]#### CBC, ADIFF, ANEU ####[address] [place], [place] [address] Urea nitrogen [Mass/Vol] 25 mg/dL High 7-18 [facility] ([place] Comment on above: Performed By: #### B MP, GFR ####[place] [address]#### CBC, ADIFF, ANEU ####[address] [place], [place] [address] CBCon 01-06-2021 Erythrocyte distribution width (RBC) [Ratio] 15.8 % High 11.5-14.5 [facility] ([place] Comment on above: Performed By: #### B MP, GFR ####[place] [address]#### CBC, ADIFF, ANEU ####[address] [place], [place] [address] Hematocrit (Bld) [Volume fraction] 34.4 % Low 37.0-47.0 [facility] ([place] Comment on above: Performed By: #### B MP, GFR ####[place] [address]#### CBC, ADIFF, ANEU ####[address] [place], [place] [address] Hgb 11.6 G/dL Low 12.0-16.0 [facility] ([place] Comment on above: Performed By: #### B MP, GFR ####[place] [address]#### CBC, ADIFF, ANEU ####[address] [place], [place] [address] MCH (RBC) [Entitic mass] 33.4 pg High 27.0-31.2 [facility] ([place] Comment on above: Performed By: #### B MP, GFR ####[place] [address]#### CBC, ADIFF, ANEU ####[address] [place] [address] MCHC 33.6 G/dL Normal 33.0-37.0 [facility] ([place] Comment on above: Performed By: #### B MP, GFR ####[place] [address]#### CBC, ADIFF, ANEU ####[facility] [place], [place] [address] MCV (RBC) [Entitic vol] 99.3 fL High 80.0-94.0 [facility] ([place] Comment on above: Performed By: #### B MP, GFR ####[place] [address]#### CBC, ADIFF, ANEU ####[address] [place], [place] [address] Platelet 374 10 3/mcL Normal 130-400 [facility] ([place] Comment on above: Performed By: #### B MP, GFR ####[place] [address]#### CBC, ADIFF, ANEU ####[facility] [place], [place] [address] Platelet mean volume (Bld) [Entitic vol] 9.5 fL Normal 7.4-10.4 [facility] ([place] Comment on above: Performed By: #### B MP, GFR ####[place] [address]#### CBC, ADIFF, ANEU ####[place] [address] RBC 3.47 10 6/mcL Low 4.20-5.40 [facility] ([place] Comment on above: Performed By: #### B MP, GFR ####[place] [address]#### CBC, ADIFF, ANEU ####[place] [address] [place] [address] WBC 7.00 10 3/mcL Normal 4.60-10.80 [facility] ([place] Comment on above: Performed By: #### B MP, GFR ####[place] [address]#### CBC, ADIFF, ANEU ####[place] [address] .Auto Diffon 12-29-2020 Basophil, Absolute 0.10 10 3/mcL Normal 0.00-0.27 [facility] ([place] Comment on above: Performed By: #### B MP, GFR, CBC, ADIFF, ANEU ####[place] [address] Basophils/100 WBC (Bld) 1.3 % Normal 0.0-2.5 [facility] ([place] Comment on above: Performed By: #### B MP, GFR, CBC, ADIFF, ANEU ####[place] [address] Eosinophil, Absolute 0.50 10 3/mcL Normal 0.00-0.65 [facility] ([place] Comment on above: Performed By: #### B MP, GFR, CBC, ADIFF, ANEU ####[address] [address] Eosinophils/100 WBC (Bld) 8.2 % High 0.0-6.0 [facility] ([place] Comment on above: Performed By: #### B MP, GFR, CBC, ADIFF, ANEU ####[address] [address] Lymphocyte, Absolute 1.50 10 3/mcL Normal 0.90-4.32 [facility] ([place] Comment on above: Performed By: #### B MP, GFR, CBC, ADIFF, ANEU ####[address] [address] Lymphocytes/100 WBC (Bld) 25.9 % Normal 20.0-40.0 [facility] ([place] Comment on above: Performed By: #### B MP, GFR, CBC, ADIFF, ANEU ####[address] [address] Monocyte, Absolute 0.40 10 3/mcL Normal 0.09-1.40 [facility] ([place] Comment on above: Performed By: #### B MP, GFR, CBC, ADIFF, ANEU ####[address] [address] Monocytes/100 WBC (Bld) 7.7 % Normal 2.0-13.0 [facility] ([place] Comment on above: Performed By: #### B MP, GFR, CBC, ADIFF, ANEU ####[address] [address] Neutrophils/100 WBC (Bld) 56.9 % Normal 50.0-75.0 [facility] ([place]) Comment on above: Performed By: #### B MP, GFR, CBC, ADIFF, ANEU ####[address] [address] .GFRon 12-29-2020 GFR >60 Normal [facility] ([place] Comment on above: Result Comment: GFR Population [...] #### B MP, GFR, CBC, ADIFF, ANEU ####[address] [address] GFR Non- 60 ml/min/1.73sqm Normal [facility] ([place] Comment on above: Result Comment: GFR Population [...] #### B MP, GFR, CBC, ADIFF, ANEU ####[place] [address] .NEUABSon 12-29-2020 Neutrophil, Absolute 3.30 10 3/mcL Normal 2.25-8.10 [facility] ([place] Comment on above: Performed By: #### B MP, GFR, CBC, ADIFF, ANEU ####[place] [id number] BMPon 12-29-2020 BUN/Creatinine Ratio 27.5 ratio High 10.0-22.0 [facility] ([place] Comment on above: Performed By: #### B MP, GFR, CBC, ADIFF, ANEU ####[address] [address] Calcium [Mass/Vol] 9.4 mg/dL Normal 8.7-10.4 [facility] ([place] Comment on above: Result Comment: No te - New Reference Range in effect 19 Performed By: #### B MP, GFR, CBC, ADIFF, ANEU ####[address] [address] Chloride [Moles/Vol] 106 mmol/L Normal 98-110 [facility] ([place] Comment on above: Performed By: #### B MP, GFR, CBC, ADIFF, ANEU ####[address] [address] CO2 [Moles/Vol] 29 mmol/L Normal 22-32 [facility] ([place] Comment on above: Performed By: #### B MP, GFR, CBC, ADIFF, ANEU ####[place] [address] Creatinine [Mass/Vol] 0.91 mg/dL Normal 0.50-1.20 [facility] ([place] Comment on above: Performed By: #### B MP, GFR, CBC, ADIFF, ANEU ####[place] [address] Electrolyte Balance 5.0 mEq/L Normal 4.0-15.0 [facility] ([place] Comment on above: Performed By: #### B MP, GFR, CBC, ADIFF, ANEU ####[address] [address] Glucose [Mass/Vol] 152 mg/dL High 82-115 [facility] ([place] Comment on above: Performed By: #### B MP, GFR, CBC, ADIFF, ANEU ####[address] [address] Potassium [Moles/Vol] 4.6 mmol/L Normal 3.5-5.0 [facility] ([place] Comment on above: Performed By: #### B MP, GFR, CBC, ADIFF, ANEU ####[address] [address] Sodium [Moles/Vol] 140 mmol/L Normal 136-145 [facility] ([place] Comment on above: Performed By: #### B MP, GFR, CBC, ADIFF, ANEU ####[place] [address] Urea nitrogen [Mass/Vol] 25.0 mg/dL High 8.0-22.0 [facility] ([place] Comment on above: Performed By: #### B MP, GFR, CBC, ADIFF, ANEU ####[place] [address] CBCon 12-29-2020 Erythrocyte distribution width (RBC) [Ratio] 17.1 % High 11.5-15.5 [facility] ([place] Comment on above: Performed By: #### B MP, GFR, CBC, ADIFF, ANEU ####[place] [address] Hematocrit (Bld) [Volume fraction] 34.2 % Normal 34.0-46.0 [facility] ([place] Comment on above: Performed By: #### B MP, GFR, CBC, ADIFF, ANEU ####[place] [address] Hgb 11.2 G/dL Low 12.0-16.0 [facility] ([place] Comment on above: Performed By: #### B MP, GFR, CBC, ADIFF, ANEU ####[place] [address] MCH (RBC) [Entitic mass] 32.1 pg Normal 27.0-33.0 [facility] ([place] Comment on above: Performed By: #### B MP, GFR, CBC, ADIFF, ANEU ####[place] [address] MCHC 32.7 G/dL Normal 32.0-36.0 [facility] ([place] Comment on above: Performed By: #### B MP, GFR, CBC, ADIFF, ANEU ####[place] [address] MCV (RBC) [Entitic vol] 98.4 fL Normal 80.0-99.0 [facility] ([place] Comment on above: Performed By: #### B MP, GFR, CBC, ADIFF, ANEU ####[place] [address] Platelet 410 10 3/mcL Normal 150-450 [facility] ([place] Comment on above: Performed By: #### B MP, GFR, CBC, ADIFF, ANEU ####[place] [address] Platelet mean volume (Bld) [Entitic vol] 9.5 fL Normal 6.6-10.5 [facility] ([place] Comment on above: Performed By: #### B MP, GFR, CBC, ADIFF, ANEU ####[place] [address] RBC 3.47 10 6/mcL Low 4.10-5.30 [facility] ([place] Comment on above: Performed By: #### B MP, GFR, CBC, ADIFF, ANEU ####[place] [address] WBC 5.80 10 3/mcL Normal 4.50-10.80 [facility] ([place] Comment on above: Performed By: #### B MP, GFR, CBC, ADIFF, ANEU ####[place] [address] .Auto Diffon 12-22-2020 Basophil, Absolute 0.10 10 3/mcL Normal 0.00-0.27 [facility] ([place] Comment on above: Performed By: #### C BC, ADIFF, ANEU, BMP, GFR ####[place] [address] Basophils/100 WBC (Bld) 1.0 % Normal 0.0-2.5 [facility] ([place] Comment on above: Performed By: #### C BC, ADIFF, ANEU, BMP, GFR ####[place] [address] Eosinophil, Absolute 0.60 10 3/mcL Normal 0.00-0.65 [facility] ([place] Comment on above: Performed By: #### C BC, ADIFF, ANEU, BMP, GFR ####[address] [address] Eosinophils/100 WBC (Bld) 9.0 % High 0.0-6.0 [facility] ([place] Comment on above: Performed By: #### C BC, ADIFF, ANEU, BMP, GFR ####[address] [address] Lymphocyte, Absolute 1.50 10 3/mcL Normal 0.90-4.32 [facility] ([place]) Comment on above: Performed By: #### C BC, ADIFF, ANEU, BMP, GFR ####[address] [address] Lymphocytes/100 WBC (Bld) 23.4 % Normal 20.0-40.0 [facility] ([place]) Comment on above: Performed By: #### C BC, ADIFF, ANEU, BMP, GFR ####[address] [address] Monocyte, Absolute 0.40 10 3/mcL Normal 0.09-1.40 [facility] ([place]) Comment on above: Performed By: #### C BC, ADIFF, ANEU, BMP, GFR ####[address] [address] Monocytes/100 WBC (Bld) 6.6 % Normal 2.0-13.0 [facility] ([place]) Comment on above: Performed By: #### C BC, ADIFF, ANEU, BMP, GFR ####[address] [address] Neutrophils/100 WBC (Bld) 60.0 % Normal 50.0-75.0 [facility] ([place]) Comment on above: Performed By: #### C BC, ADIFF, ANEU, BMP, GFR ####[address] [address] .GFRon 12-22-2020 GFR >60 Normal [facility] ([place]) Comment on above: Result Comment: GFR [...] #### C BC, ADIFF, ANEU, BMP, GFR ####[address] [address] GFR Non- >60 Normal [facility] ([place]) Comment on above: Result Comment: GFR Population [...] #### C BC, ADIFF, ANEU, BMP, GFR ####[address] [address] .NEUABSon 12-22-2020 Neutrophil, Absolute 3.90 10 3/mcL Normal 2.25-8.10 [facility] ([place]) Comment on above: Performed By: #### C BC, ADIFF, ANEU, BMP, GFR ####[address] [address] BMPon 12-22-2020 BUN/Creatinine Ratio 25.6 ratio High 10.0-22.0 [facility] ([place]) Comment on above: Performed By: #### C BC, ADIFF, ANEU, BMP, GFR ####[address] [address] Calcium [Mass/Vol] 9.3 mg/dL Normal 8.7-10.4 [facility] ([place]) Comment on above: Result Comment: No te - New Reference Range in effect 19 Performed By: #### C BC, ADIFF, ANEU, BMP, GFR ####[address] [address] Chloride [Moles/Vol] 107 mmol/L Normal 98-110 [facility] ([place]) Comment on above: Performed By: #### C BC, ADIFF, ANEU, BMP, GFR ####[address] [address] CO2 [Moles/Vol] 26 mmol/L Normal 22-32 [facility] ([place]) Comment on above: Performed By: #### C BC, ADIFF, ANEU, BMP, GFR ####[address] [address] Creatinine [Mass/Vol] 0.90 mg/dL Normal 0.50-1.20 [facility] ([place] Comment on above: Performed By: #### C BC, ADIFF, ANEU, BMP, GFR ####[address] [address] Electrolyte Balance 8.0 mEq/L Normal 4.0-15.0 [facility] ([place]) Comment on above: Performed By: #### C BC, ADIFF, ANEU, BMP, GFR ####[address] [address] Glucose [Mass/Vol] 136 mg/dL High 82-115 [facility] ([place] Comment on above: Performed By: #### C BC, ADIFF, ANEU, BMP, GFR ####[address] [address] Potassium [Moles/Vol] 4.5 mmol/L Normal 3.5-5.0 [facility] ([place] Comment on above: Performed By: #### C BC, ADIFF, ANEU, BMP, GFR ####[address] [address] Sodium [Moles/Vol] 141 mmol/L Normal 136-145 [facility] ([place] Comment on above: Performed By: #### C BC, ADIFF, ANEU, BMP, GFR ####[place] [address] Urea nitrogen [Mass/Vol] 23.0 mg/dL High 8.0-22.0 [facility] ([place] Comment on above: Performed By: #### C BC, ADIFF, ANEU, BMP, GFR ####[place] [address] CBCon 12-22-2020 Erythrocyte distribution width (RBC) [Ratio] 16.4 % High 11.5-15.5 [facility] ([place] Comment on above: Performed By: #### C BC, ADIFF, ANEU, BMP, GFR ####[place] [address] Hematocrit (Bld) [Volume fraction] 33.8 % Low 34.0-46.0 [facility] ([place] Comment on above: Performed By: #### C BC, ADIFF, ANEU, BMP, GFR ####[place] [address] Hgb 10.8 G/dL Low 12.0-16.0 [facility] ([place] Comment on above: Performed By: #### C BC, ADIFF, ANEU, BMP, GFR ####[place] [address] MCH (RBC) [Entitic mass] 31.2 pg Normal 27.0-33.0 [facility] ([place] Comment on above: Performed By: #### C BC, ADIFF, ANEU, BMP, GFR ####[place] [address] MCHC 31.9 G/dL Low 32.0-36.0 [facility] ([place] Comment on above: Performed By: #### C BC, ADIFF, ANEU, BMP, GFR ####[place] [address] MCV (RBC) [Entitic vol] 97.7 fL Normal 80.0-99.0 [facility] ([place] Comment on above: Performed By: #### C BC, ADIFF, ANEU, BMP, GFR ####[place] [address] Platelet 440 10 3/mcL Normal 150-450 [facility] ([place]) Comment on above: Performed By: #### C BC, ADIFF, ANEU, BMP, GFR ####[place] [address] Platelet mean volume (Bld) [Entitic vol] 8.5 fL Normal 6.6-10.5 [facility] ([place] Comment on above: Performed By: #### C BC, ADIFF, ANEU, BMP, GFR ####[place] [address] RBC 3.46 10 6/mcL Low 4.10-5.30 [facility] ([place]) Comment on above: Performed By: #### C BC, ADIFF, ANEU, BMP, GFR ####[place] [address] WBC 6.40 10 3/mcL Normal 4.50-10.80 [facility] ([place] Comment on above: Performed By: #### C BC, ADIFF, ANEU, BMP, GFR ####[place] [address] .Auto Diffon 12-21-2020 Basophil, Absolute 0.10 10 3/mcL Normal 0.00-0.27 [facility] ([place]) Comment on above: Performed By: #### C BC, ADIFF, ANEU ####[place] [address] Basophils/100 WBC (Bld) 0.8 % Normal 0.0-2.5 [facility] ([place] Comment on above: Performed By: #### C BC, ADIFF, ANEU ####[place] [address] Eosinophil, Absolute 0.80 10 3/mcL High 0.00-0.65 [facility] ([place]) Comment on above: Performed By: #### C BC, ADIFF, ANEU ####[facility] [place] [address] Eosinophils/100 WBC (Bld) 8.3 % High 0.0-6.0 [facility] ([place]) Comment on above: Performed By: #### C TRUPTI PINON, ANEU ####[address] [address] Lymphocyte, Absolute 2.40 10 3/mcL Normal 0.90-4.32 [facility] ([place]) Comment on above: Performed By: #### C TRUPTI PINON, ANEU ####[address] [address] Lymphocytes/100 WBC (Bld) 25.5 % Normal 20.0-40.0 [facility] ([place]) Comment on above: Performed By: #### C TRUPTI PINON, ANEU ####[address] [address] Monocyte, Absolute 0.90 10 3/mcL Normal 0.09-1.40 [facility] ([place]) Comment on above: Performed By: #### C TRUPTI PINON, ANEU ####[address] [address] Monocytes/100 WBC (Bld) 9.9 % Normal 2.0-13.0 [facility] ([place]) Comment on above: Performed By: #### C TRUPTI PINON, ANEU ####[address] [address] Neutrophils/100 WBC (Bld) 55.5 % Normal 50.0-75.0 [facility] ([place]) Comment on above: Performed By: #### C TRUPTI PINON, ANEU ####[address] [address] .NEUABSon 12-21-2020 Neutrophil, Absolute 5.20 10 3/mcL Normal 2.25-8.10 [facility] ([place]) Comment on above: Performed By: #### C TRUPTI PINON, ANEU ####[address] [address] CBCon 12-21-2020 Erythrocyte distribution width (RBC) [Ratio] 15.5 % Normal 11.5-15.5 [facility] ([place] Comment on above: Performed By: #### C TRUPTI PINON ANEU ####[place] [address] Hematocrit (Bld) [Volume fraction] 28.3 % Low 34.0-46.0 [facility] ([place] Comment on above: Performed By: #### C TRUPTI PINON ANEU ####[place] [address] Hgb 9.4 G/dL Low 12.0-16.0 [facility] ([place] Comment on above: Performed By: #### C TRUPTI PINON ANEU ####[place] [address] MCH (RBC) [Entitic mass] 32.1 pg Normal 27.0-33.0 [facility] ([place] Comment on above: Performed By: #### TRUPTI TATE ANEU ####[place] [address] MCHC 33.1 G/dL Normal 32.0-36.0 [facility] ([place] Comment on above: Performed By: #### TRUPTI TATE ANEU ####[place] [address] MCV (RBC) [Entitic vol] 96.9 fL Normal 80.0-99.0 [facility] ([place] Comment on above: Performed By: #### C TRUPTI PINON ANEU ####[place] [address] Platelet 416 10 3/mcL Normal 150-450 [facility] ([place]) Comment on above: Performed By: #### TRUPTI TATE ANEU ####[place] [address] Platelet mean volume (Bld) [Entitic vol] 8.5 fL Normal 6.6-10.5 [facility] ([place] Comment on above: Performed By: #### TRUPTI TATE ANEU ####[address] [address] RBC 2.92 10 6/mcL Low 4.10-5.30 [facility] ([place] Comment on above: Performed By: #### TRUPTI TATE ANEU ####[address] [address] WBC 9.30 10 3/mcL Normal 4.50-10.80 [facility] ([place] Comment on above: Performed By: #### TRUPTI TATE, ANEU ####[address] [address] .Auto Diffon 12-18-2020 Basophil, Absolute 0.10 10 3/mcL Normal 0.00-0.27 [facility] ([place]) Comment on above: Performed By: #### TRUPTI TATE ANEU ####[address] [address] Basophils/100 WBC (Bld) 0.8 % Normal 0.0-2.5 [facility] ([place] Comment on above: Performed By: #### TRUPTI TATE, ANEU ####[address] [address] Eosinophil, Absolute 0.70 10 3/mcL High 0.00-0.65 [facility] ([place] Comment on above: Performed By: #### TRUPTI TATE, ANEU ####[address] [address] Eosinophils/100 WBC (Bld) 9.0 % High 0.0-6.0 [facility] ([place] Comment on above: Performed By: #### TRUPTI TATE, ANEU ####[address] [address] Lymphocyte, Absolute 1.90 10 3/mcL Normal 0.90-4.32 [facility] ([place] Comment on above: Performed By: #### TRUPTI TATE, ANEU ####[address] [address] Lymphocytes/100 WBC (Bld) 26.6 % Normal 20.0-40.0 [facility] ([place]) Comment on above: Performed By: #### C TRUPTI PINON, ANGEL LUIS ####[address] [address] Monocyte, Absolute 0.80 10 3/mcL Normal 0.09-1.40 [facility] ([place]) Comment on above: Performed By: #### C TRUPTI PINON, ANGEL LUIS ####[address] [address] Monocytes/100 WBC (Bld) 10.5 % Normal 2.0-13.0 [facility] ([place]) Comment on above: Performed By: #### C TRUPTI PINON, ANGEL LUIS ####[place] [address] Neutrophils/100 WBC (Bld) 53.1 % Normal 50.0-75.0 [facility] ([place]) Comment on above: Performed By: #### C TRUPTI PINON, ANEU ####[place] [address] .NEUABSon 12-18-2020 Neutrophil, Absolute 3.90 10 3/mcL Normal 2.25-8.10 [facility] ([place]) Comment on above: Performed By: #### C TRUPTI PINON, ANEU ####[place] [address] CBCon 12-18-2020 Erythrocyte distribution width (RBC) [Ratio] 14.4 % Normal 11.5-15.5 [facility] ([place] Comment on above: Performed By: #### C TRUPTI PINON, ANEU ####[address] [address] Hematocrit (Bld) [Volume fraction] 29.1 % Low 34.0-46.0 [facility] ([place] Comment on above: Performed By: #### C TRUPTI PINON, ANEU ####[place] [address] Hgb 9.5 G/dL Low 12.0-16.0 [facility] ([place]) Comment on above: Performed By: #### C TRUPTI PINON, ANEU ####[place] [address] MCH (RBC) [Entitic mass] 31.0 pg Normal 27.0-33.0 [facility] ([place] Comment on above: Performed By: #### TRUPTI TATE ANEU ####[place] [address] MCHC 32.6 G/dL Normal 32.0-36.0 [facility] ([place] Comment on above: Performed By: #### TRUPTI TATE ANEU ####[place] [address] MCV (RBC) [Entitic vol] 95.0 fL Normal 80.0-99.0 [facility] ([place] Comment on above: Performed By: #### TRUPTI TATE ANEU ####[place] [address] Platelet 415 10 3/mcL Normal 150-450 [facility] ([place]) Comment on above: Performed By: #### TRUPTI TATE ANEU ####[place] [address] Platelet mean volume (Bld) [Entitic vol] 8.5 fL Normal 6.6-10.5 [facility] ([place] Comment on above: Performed By: #### TRUPTI TATE ANEU ####[place] [address] RBC 3.06 10 6/mcL Low 4.10-5.30 [facility] ([place] Comment on above: Performed By: #### TRUPTI TATE ANEU ####[place] [address] WBC 7.30 10 3/mcL Normal 4.50-10.80 [facility] ([place] Comment on above: Performed By: #### TRUPTI TATE ANEU ####[place] [address] .Auto Diffon 12-15-2020 Basophil, Absolute 0.10 10 3/mcL Normal 0.00-0.27 [facility] ([place]) Comment on above: Performed By: #### C BC, ADIFF, ANEU, BMP, FES, GFR ####[address] [address] Basophils/100 WBC (Bld) 0.8 % Normal 0.0-2.5 [facility] ([place] Comment on above: Performed By: #### C BC, ADIFF, ANEU, BMP, FES, GFR ####[address] [address] Eosinophil, Absolute 0.60 10 3/mcL Normal 0.00-0.65 [facility] ([place] Comment on above: Performed By: #### C BC, ADIFF, ANEU, BMP, FES, GFR ####[address] [address] Eosinophils/100 WBC (Bld) 5.4 % Normal 0.0-6.0 [facility] ([place] Comment on above: Performed By: #### C BC, ADIFF, ANEU, BMP, FES, GFR ####[address] [address] Lymphocyte, Absolute 1.60 10 3/mcL Normal 0.90-4.32 [facility] ([place] Comment on above: Performed By: #### C BC, ADIFF, ANEU, BMP, FES, GFR ####[address] [address] Lymphocytes/100 WBC (Bld) 13.2 % Low 20.0-40.0 [facility] ([place] Comment on above: Performed By: #### C BC, ADIFF, ANEU, BMP, FES, GFR ####[address] [address] Monocyte, Absolute 1.00 10 3/mcL Normal 0.09-1.40 [facility] ([place]) Comment on above: Performed By: #### C BC, ADIFF, ANEU, BMP, FES, GFR ####[address] [address] Monocytes/100 WBC (Bld) 8.3 % Normal 2.0-13.0 [facility] ([place] Comment on above: Performed By: #### C BC, ADIFF, ANEU, BMP, FES, GFR ####[address] [address] Neutrophils/100 WBC (Bld) 72.3 % Normal 50.0-75.0 [facility] ([place] Comment on above: Performed By: #### C BC, ADIFF, ANEU, BMP, FES, GFR ####[address] [address] .GFRon 12-15-2020 GFR >60 Normal [facility] ([place] Comment on above: Result Comment: GFR Population [...] C BC, ADIFF, ANEU, BMP, FES, GFR ####[address] [address] GFR Non- >60 Normal [facility] ([place] Comment on above: Result Comment: GFR Population [...] C BC, ADIFF, ANEU, BMP, FES, GFR ####[address] [address] .NEUABSon 12-15-2020 Neutrophil, Absolute 8.60 10 3/mcL High 2.25-8.10 [facility] ([place] Comment on above: Performed By: #### C BC, ADIFF, ANEU, BMP, FES, GFR ####[address] [address] BMPon 12-15-2020 BUN/Creatinine Ratio 28.2 ratio High 10.0-22.0 [facility] ([place] Comment on above: Performed By: #### C BC, ADIFF, ANEU, BMP, FES, GFR ####[place] [address] Calcium [Mass/Vol] 9.1 mg/dL Normal 8.7-10.4 [facility] ([place]) Comment on above: Result Comment: No te - New Reference Range in effect 19 Performed By: #### C BC, ADIFF, ANEU, BMP, FES, GFR ####[place] [address] Chloride [Moles/Vol] 106 mmol/L Normal 98-110 [facility] ([place] Comment on above: Performed By: #### C BC, ADIFF, ANEU, BMP, FES, GFR ####[place] [address] CO2 [Moles/Vol] 28 mmol/L Normal 22-32 [facility] ([place]) Comment on above: Performed By: #### C BC, ADIFF, ANEU, BMP, FES, GFR ####[place] [address] Creatinine [Mass/Vol] 0.85 mg/dL Normal 0.50-1.20 [facility] ([place] Comment on above: Performed By: #### C BC, ADIFF, ANEU, BMP, FES, GFR ####[place] [address] Electrolyte Balance 6.0 mEq/L Normal 4.0-15.0 [facility] ([place] Comment on above: Performed By: #### C BC, ADIFF, ANEU, BMP, FES, GFR ####[place] [address] Glucose [Mass/Vol] 82 mg/dL Normal 82-115 [facility] ([place] Comment on above: Performed By: #### C BC, ADIFF, ANEU, BMP, FES, GFR ####[place] [address] Potassium [Moles/Vol] 4.9 mmol/L Normal 3.5-5.0 [facility] ([place] Comment on above: Performed By: #### C BC, ADIFF, ANEU, BMP, FES, GFR ####[place] [address] Sodium [Moles/Vol] 140 mmol/L Normal 136-145 [facility] ([place] Comment on above: Performed By: #### C BC, ADIFF, ANEU, BMP, FES, GFR ####[place] [address] Urea nitrogen [Mass/Vol] 24.0 mg/dL High 8.0-22.0 [facility] ([place] Comment on above: Performed By: #### C BC, ADIFF, ANEU, BMP, FES, GFR ####[place] [address] CBCon 12-15-2020 Erythrocyte distribution width (RBC) [Ratio] 14.1 % Normal 11.5-15.5 [facility] ([place] Comment on above: Performed By: #### C BC, ADIFF, ANEU, BMP, FES, GFR ####[place] [address] Hematocrit (Bld) [Volume fraction] 30.9 % Low 34.0-46.0 [facility] ([place] Comment on above: Performed By: #### C BC, ADIFF, ANEU, BMP, FES, GFR ####[place] [address] Hgb 10.0 G/dL Low 12.0-16.0 [facility] ([place] Comment on above: Performed By: #### C BC, ADIFF, ANEU, BMP, FES, GFR ####[place] [address] MCH (RBC) [Entitic mass] 30.9 pg Normal 27.0-33.0 [facility] ([place] Comment on above: Performed By: #### C BC, ADIFF, ANEU, BMP, FES, GFR ####[place] [address] MCHC 32.6 G/dL Normal 32.0-36.0 [facility] ([place] Comment on above: Performed By: #### C BC, ADIFF, ANEU, BMP, FES, GFR ####[place] [address] MCV (RBC) [Entitic vol] 95.0 fL Normal 80.0-99.0 [facility] ([place] Comment on above: Performed By: #### C BC, ADIFF, ANEU, BMP, FES, GFR ####[place] [address] Platelet 442 10 3/mcL Normal 150-450 [facility] ([place]) Comment on above: Performed By: #### C BC, ADIFF, ANEU, BMP, FES, GFR ####[place] [address] Platelet mean volume (Bld) [Entitic vol] 8.8 fL Normal 6.6-10.5 [facility] ([place] Comment on above: Performed By: #### C BC, ADIFF, ANEU, BMP, FES, GFR ####[place] [address] RBC 3.25 10 6/mcL Low 4.10-5.30 [facility] ([place] Comment on above: Performed By: #### C BC, ADIFF, ANEU, BMP, FES, GFR ####[place] [address] WBC 11.90 10 3/mcL High 4.50-10.80 [facility] ([place]) Comment on above: Performed By: #### C BC, ADIFF, ANEU, BMP, FES, GFR ####[place] [address] FESon 12-15-2020 Iron [Mass/Vol] 81 ug/dL Normal 50-170 [facility] ([place]) Comment on above: Performed By: #### C BC, ADIFF, ANEU, BMP, FES, GFR ####[place] [address] Iron Sat 26 % Normal [facility] ([place] Comment on above: Performed By: #### C BC, ADIFF, ANEU, BMP, FES, GFR ####[place] [address] TIBC 317 mcg/dL Normal 250-500 [facility] ([place] Comment on above: Performed By: #### C BC, ADIFF, ANEU, BMP, FES, GFR ####[place] [address] .Auto Diffon 12-14-2020 Basophil, Absolute 0.10 10 3/mcL Normal 0.00-0.27 [facility] ([place]) Comment on above: Performed By: #### C BC, MACIELIFF, ANEU ####[place] [address] Basophils/100 WBC (Bld) 0.6 % Normal 0.0-2.5 [facility] ([place] Comment on above: Performed By: #### C BCMACIELIFF, ANEU ####[place] [address] Eosinophil, Absolute 0.60 10 3/mcL Normal 0.00-0.65 [facility] ([place] Comment on above: Performed By: #### C BC, ADIFF, ANEU ####[place] [address] Eosinophils/100 WBC (Bld) 5.0 % Normal 0.0-6.0 [facility] ([place] Comment on above: Performed By: #### C BC, ADIFF, ANEU ####[place] [address] Lymphocyte, Absolute 1.80 10 3/mcL Normal 0.90-4.32 [facility] ([place] Comment on above: Performed By: #### C TRUPTI PINON, ANEU ####[address] [address] Lymphocytes/100 WBC (Bld) 16.2 % Low 20.0-40.0 [facility] ([place]) Comment on above: Performed By: #### C TRUPTI PINON, ANEU ####[address] [address] Monocyte, Absolute 1.10 10 3/mcL Normal 0.09-1.40 [facility] ([place]) Comment on above: Performed By: #### C TRUPTI PINON, ANEU ####[address] [address] Monocytes/100 WBC (Bld) 9.3 % Normal 2.0-13.0 [facility] ([place] Comment on above: Performed By: #### C TRUPTI PINON, ANEU ####[address] [address] Neutrophils/100 WBC (Bld) 68.9 % Normal 50.0-75.0 [facility] ([place] Comment on above: Performed By: #### C TRUPTI PINON, ANEU ####[place] [address] .NEUABSon 12-14-2020 Neutrophil, Absolute 7.80 10 3/mcL Normal 2.25-8.10 [facility] ([place] Comment on above: Performed By: #### C TRUPTI PINON, ANEU ####[address] [address] CBCon 12-14-2020 Erythrocyte distribution width (RBC) [Ratio] 14.0 % Normal 11.5-15.5 [facility] ([place] Comment on above: Performed By: #### TRUPTI TATE, ANEU ####[place] [address] Hematocrit (Bld) [Volume fraction] 27.9 % Low 34.0-46.0 [facility] ([place] Comment on above: Performed By: #### TRUPTI TATE, ANEU ####[address] [address] Hgb 9.2 G/dL Low 12.0-16.0 [facility] ([place] Comment on above: Performed By: #### TRUPTI TATE ANEU ####[address] [address] MCH (RBC) [Entitic mass] 31.8 pg Normal 27.0-33.0 [facility] ([place] Comment on above: Performed By: #### TRUPTI TATE ANEU ####[address] [address] MCHC 33.0 G/dL Normal 32.0-36.0 [facility] ([place] Comment on above: Performed By: #### TRUPTI TATE ANEU ####[place] [address] MCV (RBC) [Entitic vol] 96.4 fL Normal 80.0-99.0 [facility] ([place] Comment on above: Performed By: #### TRUPTI TATE ANEU ####[place] [address] Platelet 422 10 3/mcL Normal 150-450 [facility] ([place] Comment on above: Performed By: #### TRUPTI TATE ANEU ####[address] [address] Platelet mean volume (Bld) [Entitic vol] 9.3 fL Normal 6.6-10.5 [facility] ([place] Comment on above: Performed By: #### TRUPTI TATE ANEU ####[place] [address] RBC 2.90 10 6/mcL Low 4.10-5.30 [facility] ([place] Comment on above: Performed By: #### TRUPTI TATE ANEU ####[address] [address] WBC 11.30 10 3/mcL High 4.50-10.80 [facility] ([place] Comment on above: Performed By: #### TRUPTI TATE ANEU ####[place] [address] UAon 12-14-2020 Color (U) Dark Yellow Normal [facility] ([place] Comment on above: Performed By: #### U A, UAMIC ####[place] [address] Glucose (U) [Mass/Vol] Negative Normal Negative [facility] ([place]) Comment on above: Performed By: #### U A, UAMIC ####[place] [address] Ketones Ql (U) Negative Normal Neg-Trace [facility] ([place] Comment on above: Performed By: #### U A, UAMIC ####[place] [address] UA Appear Turbid Abnormal Clear [facility] ([place] Comment on above: Performed By: #### U A, UAMIC ####[place] [address] UA Blood Small Abnormal Neg-Trace [facility] ([place] Comment on above: Performed By: #### U A, UAMIC ####[place] [address] UA Leuk Est Small Abnormal Negative [facility] ([place] Comment on above: Performed By: #### U A, UAMIC ####[place] [address] UA Nitrite Positive Abnormal Negative [facility] ([place] Comment on above: Performed By: #### U A, UAMIC ####[place] [address] UA pH 5.0 Normal 5.0 - 8.0 [facility] ([place] Comment on above: Performed By: #### U A, UAMIC ####[place] [address] UA Protein Negative Normal Negative [facility] ([place] Comment on above: Performed By: #### U A, UAMIC ####[place] [address] UA Spec Grav 1.025 Normal 1.006-1.029 [facility] ([place]) Comment on above: Performed By: #### U A, UAMIC ####[place] [address] UA Specimen Type Clean Catch Normal [facility] ([place] Comment on above: Performed By: #### U A, UAMIC ####[address] [address] UA Urobilinogen 1.0 E.U./dL Normal 0.2-1.0 [facility] ([place] Comment on above: Performed By: #### U A, UAMIC ####[place] [address] Urobilinogen (U) [Mass/Vol] Negative Normal Neg-Trace [facility] ([place] Comment on above: Performed By: #### U A, UAMIC ####[place] [address] UAMICon 12-14-2020 UA Amorphus 1+ /hpf Normal [facility] ([place] Comment on above: Performed By: #### U A, UAMIC ####[place] [address] UA Bacteria 3+ /hpf Abnormal Negative [facility] ([place] Comment on above: Performed By: #### U A, UAMIC ####[place] [address] UA CA Phosphate Crystals 1+ /hpf Normal [facility] ([place] Comment on above: Performed By: #### U A, UAMIC ####[place] [address] UA RBC 0-2 Normal 0-2 [facility] ([place] Comment on above: Performed By: #### U A, UAMIC ####[place] [address] UA Squam Epithelial 3-5 Normal 0-20 [facility] ([place] Comment on above: Performed By: #### U A, UAMIC ####[place] [address] UA WBC 5-10 Abnormal 0-5 [facility] ([place] Comment on above: Performed By: #### Jane Carter UAMIC ####[address] [address] .Auto Diffon 12-13-2020 Basophil, Absolute 0.10 10 3/mcL Normal 0.00-0.27 [facility] ([place] Comment on above: Performed By: #### TRUPTI TATE, ANEU ####[address] [address] Basophils/100 WBC (Bld) 0.5 % Normal 0.0-2.5 [facility] ([place] Comment on above: Performed By: #### TRUPTI TATE, ANEU ####[address] [address] Eosinophil, Absolute 0.60 10 3/mcL Normal 0.00-0.65 [facility] ([place] Comment on above: Performed By: #### TRUPTI TATE, ANEU ####[address] [address] Eosinophils/100 WBC (Bld) 4.5 % Normal 0.0-6.0 [facility] ([place] Comment on above: Performed By: #### TRUPTI TATE, ANEU ####[address] [address] Lymphocyte, Absolute 2.00 10 3/mcL Normal 0.90-4.32 [facility] ([place]) Comment on above: Performed By: #### TRUPTI TATE, ANEU ####[address] [address] Lymphocytes/100 WBC (Bld) 14.8 % Low 20.0-40.0 [facility] ([place]) Comment on above: Performed By: #### TRUPTI TATE, ANEU ####[address] [address] Monocyte, Absolute 1.40 10 3/mcL Normal 0.09-1.40 [facility] ([place]) Comment on above: Performed By: #### TRUPTI TATE, ANEU ####[address] [address] Monocytes/100 WBC (Bld) 10.2 % Normal 2.0-13.0 [facility] ([place]) Comment on above: Performed By: #### TRUPTI TATE ANEU ####[place] [address] Neutrophils/100 WBC (Bld) 70.0 % Normal 50.0-75.0 [facility] ([place]) Comment on above: Performed By: #### TRUPTI TATE, ANGEL LUIS ####[place] [address] .NEUABSon 12-13-2020 Neutrophil, Absolute 9.30 10 3/mcL High 2.25-8.10 [facility] ([place] Comment on above: Performed By: #### TRUPTI TATE ANEU ####[place] [address] CBCon 12-13-2020 Erythrocyte distribution width (RBC) [Ratio] 13.8 % Normal 11.5-15.5 [facility] ([place]) Comment on above: Performed By: #### TRUPTI TATE ANEU ####[place] [address] Hematocrit (Bld) [Volume fraction] 29.9 % Low 34.0-46.0 [facility] ([place]) Comment on above: Performed By: #### TRUPTI TATE ANEU ####[place] [address] Hgb 9.9 G/dL Low 12.0-16.0 [facility] ([place]) Comment on above: Performed By: #### TRUPTI TATE, ANGEL LUIS ####[place] [address] [facility] (RBC) [Entitic mass] 31.9 pg Normal 27.0-33.0 [facility] ([place]) Comment on above: Performed By: #### TRUPTI TATE, ANEU ####[place] [address] MCHC 33.2 G/dL Normal 32.0-36.0 [facility] ([place]) Comment on above: Performed By: #### C TRUPTI PINON, ANEU ####[address] [address] MCV (RBC) [Entitic vol] 96.1 fL Normal 80.0-99.0 [facility] ([place]) Comment on above: Performed By: #### TRUPTI TATE, ANEU ####[address] [address] Platelet 312 10 3/mcL Normal 150-450 [facility] ([place]) Comment on above: Performed By: #### TRUPTI TATE, ANEU ####[place] [address] Platelet mean volume (Bld) [Entitic vol] 9.0 fL Normal 6.6-10.5 [facility] ([place]) Comment on above: Performed By: #### TRUPTI TATE, ANEU ####[place] [address] RBC 3.11 10 6/mcL Low 4.10-5.30 [facility] ([place]) Comment on above: Performed By: #### TRUPTI TATE, ANEU ####[place] [address] WBC 13.30 10 3/mcL High 4.50-10.80 [facility] ([place]) Comment on above: Performed By: #### C TRUPTI PINON, ANEU ####[place] [address] .Auto Diffon 12-11-2020 Basophil, Absolute 0.10 10 3/mcL Normal 0.00-0.27 [facility] ([place]) Comment on above: Performed By: #### TRUPTI TATE, ANEU ####[place] [id number] Basophils/100 WBC (Bld) 0.5 % Normal 0.0-2.5 [facility] ([place] Comment on above: Performed By: #### TRUPTI TATE, ANEU ####[place] [address] Eosinophil, Absolute 0.50 10 3/mcL Normal 0.00-0.65 [facility] ([place] Comment on above: Performed By: #### TRUPTI TATE ANEU ####[address] [address] Eosinophils/100 WBC (Bld) 3.6 % Normal 0.0-6.0 [facility] ([place]) Comment on above: Performed By: #### C TRUPTI PINON ANEU ####[address] [address] Lymphocyte, Absolute 1.40 10 3/mcL Normal 0.90-4.32 [facility] ([place]) Comment on above: Performed By: #### C TRUPTI PINON ANEU ####[address] [address] Lymphocytes/100 WBC (Bld) 11.1 % Low 20.0-40.0 [facility] ([place]) Comment on above: Performed By: #### TRUPTI TATE ANEU ####[address] [address] Monocyte, Absolute 1.20 10 3/mcL Normal 0.09-1.40 [facility] ([place]) Comment on above: Performed By: #### C TRUPTI PINON, ANEU ####[address] [address] Monocytes/100 WBC (Bld) 9.5 % Normal 2.0-13.0 [facility] ([place] Comment on above: Performed By: #### C TRUPTI PINON, ANEU ####[address] [address] Neutrophils/100 WBC (Bld) 75.3 % High 50.0-75.0 [facility] ([place]) Comment on above: Performed By: #### TRUPTI TATE, ANEU ####[address] [address] .NEUABSon 12-11-2020 Neutrophil, Absolute 9.60 10 3/mcL High 2.25-8.10 [facility] ([place]) Comment on above: Performed By: #### TRUPTI TATE, ANEU ####[address] [address] CBCon 12-11-2020 Erythrocyte distribution width (RBC) [Ratio] 13.7 % Normal 11.5-15.5 [facility] ([place] Comment on above: Performed By: #### C TRUPTI PINON, ANEU ####[place] [address] Hematocrit (Bld) [Volume fraction] 32.2 % Low 34.0-46.0 [facility] ([place] Comment on above: Performed By: #### C TRUPTI PINON, ANEU ####[place] [address] Hgb 10.4 G/dL Low 12.0-16.0 [facility] ([place] Comment on above: Performed By: #### C TRUPTI PINON ANEU ####[place] [address] MCH (RBC) [Entitic mass] 31.1 pg Normal 27.0-33.0 [facility] ([place]) Comment on above: Performed By: #### C TRUPTI PINON, ANEU ####[place] [address] MCHC 32.5 G/dL Normal 32.0-36.0 [facility] ([place] Comment on above: Performed By: #### C TRUPTI PINON, ANEU ####[place] [address] MCV (RBC) [Entitic vol] 95.8 fL Normal 80.0-99.0 [facility] ([place] Comment on above: Performed By: #### C TRUPTI PINON, ANEU ####[place] [address] Platelet 320 10 3/mcL Normal 150-450 [facility] ([place]) Comment on above: Performed By: #### TRUPTI TATE, ANEU ####[place] [address] Platelet mean volume (Bld) [Entitic vol] 9.5 fL Normal 6.6-10.5 [facility] ([place]) Comment on above: Performed By: #### C TRUPTI PINON, ANEU ####[facility] [place] [address] RBC 3.36 10 6/mcL Low 4.10-5.30 [facility] ([place]) Comment on above: Performed By: #### C TRUPTI PINON, ANEU ####[facility] [place] [address] WBC 12.70 10 3/mcL High 4.50-10.80 [facility] ([place]) Comment on above: Performed By: #### C TRUPTI PINON, ANEU ####[facility] [place] [address] .Auto Diffon 12-10-2020 Basophil, Absolute 0.10 10 3/mcL Normal 0.00-0.27 [facility] ([place]) Comment on above: Performed By: #### T SH, FT4 #### [address] [address] Basophils/100 WBC (Bld) 0.6 % Normal 0.0-2.5 [facility] ([place] Comment on above: Performed By: #### T SH, FT4 #### [address] [address] Eosinophil, Absolute 0.40 10 3/mcL Normal 0.00-0.65 [facility] ([place] Comment on above: Performed By: #### T SH, FT4 #### [address] [address] Eosinophils/100 WBC (Bld) 3.2 % Normal 0.0-6.0 [facility] ([place] Comment on above: Performed By: #### T SH, FT4 #### [address] [address] Lymphocyte, Absolute 1.90 10 3/mcL Normal 0.90-4.32 [facility] ([place] Comment on above: Performed By: #### T SH, FT4 #### [address] [address] Lymphocytes/100 WBC (Bld) 15.2 % Low 20.0-40.0 [facility] ([place] Comment on above: Performed By: #### T SH, FT4 #### [address] [address] Monocyte, Absolute 1.30 10 3/mcL Normal 0.09-1.40 [facility] ([place]) Comment on above: Performed By: #### T SH, FT4 #### [address] [address] Monocytes/100 WBC (Bld) 10.3 % Normal 2.0-13.0 [facility] ([place] Comment on above: Performed By: #### T SH, FT4 #### [address] [address] Neutrophils/100 WBC (Bld) 70.7 % Normal 50.0-75.0 [facility] ([place] Comment on above: Performed By: #### T SH, FT4 #### [address] [address] .GFRon 12-10-2020 GFR >60 Normal [facility] ([place] Comment on above: Result Comment: GFR Population [...] Performed By: #### T SH, FT4 #### [address] [address] GFR Non- 60 ml/min/1.73sqm Normal [facility] ([place] Comment on above: Result Comment: GFR Population [...] Performed By: #### T SHELLIE, FT4 #### [address] [address] .NEUABSon 12-10-2020 Neutrophil, Absolute 9.00 10 3/mcL High 2.25-8.10 [facility] ([place] Comment on above: Performed By: #### T SHELLIE, FT4 #### [address] [address] BMPon 12-10-2020 BUN/Creatinine Ratio 27.5 ratio High 10.0-22.0 [facility] ([place] Comment on above: Performed By: #### T SHELLIE, FT4 #### [address] [address] Calcium [Mass/Vol] 9.2 mg/dL Normal 8.7-10.4 [facility] ([place]) Comment on above: Result Comment: No te - New Reference Range in effect 19 Performed By: #### T SHELLIE, FT4 #### [address] [address] Chloride [Moles/Vol] 101 mmol/L Normal 98-110 [facility] ([place] Comment on above: Performed By: #### Dex HENSLEY, FT4 #### [address] [address] CO2 [Moles/Vol] 27 mmol/L Normal 22-32 [facility] ([place]) Comment on above: Performed By: #### T SHELLIE, FT4 #### [address] [address] Creatinine [Mass/Vol] 0.91 mg/dL Normal 0.50-1.20 [facility] ([place] Comment on above: Performed By: #### T SHELLIE, FT4 #### [address] [address] Electrolyte Balance 7.0 mEq/L Normal 4.0-15.0 [facility] ([place]) Comment on above: Performed By: #### T SHELLIE, FT4 #### [address] [address] Glucose [Mass/Vol] 113 mg/dL Normal 82-115 [facility] ([place] Comment on above: Performed By: #### T SHELLIE, FT4 #### [address] [address] Potassium [Moles/Vol] 4.4 mmol/L Normal 3.5-5.0 [facility] ([place] Comment on above: Performed By: #### T SHELLIE, FT4 #### [address] [address] Sodium [Moles/Vol] 135 mmol/L Low 136-145 [facility] ([place] Comment on above: Performed By: #### T SHELLIE, FT4 #### [address] [address] Urea nitrogen [Mass/Vol] 25.0 mg/dL High 8.0-22.0 [facility] ([place] Comment on above: Performed By: #### T SHELLIE, FT4 #### [address] [address] CBCon 12-10-2020 Erythrocyte distribution width (RBC) [Ratio] 13.6 % Normal 11.5-15.5 [facility] ([place] Comment on above: Performed By: #### T SHELLIE, FT4 #### [address] [address] Hematocrit (Bld) [Volume fraction] 33.9 % Low 34.0-46.0 [facility] ([place] Comment on above: Performed By: #### T SHELLIE, FT4 #### [address] [address] Hgb 11.3 G/dL Low 12.0-16.0 [facility] ([place] Comment on above: Performed By: #### T SHELLIE, FT4 #### [address] [address] MCH (RBC) [Entitic mass] 31.4 pg Normal 27.0-33.0 [facility] ([place] Comment on above: Performed By: #### T SHELLIE, FT4 #### [address] [address] MCHC 33.2 G/dL Normal 32.0-36.0 [facility] ([place] Comment on above: Performed By: #### T SHELLIE, FT4 #### [place] [id number] MCV (RBC) [Entitic vol] 94.5 fL Normal 80.0-99.0 [facility] ([place] Comment on above: Performed By: #### T SHELLIE, FT4 #### [place] [id number] Platelet 362 10 3/mcL Normal 150-450 [facility] ([place]) Comment on above: Performed By: #### T SHELLIE, FT4 #### [place] [address] Platelet mean volume (Bld) [Entitic vol] 9.9 fL Normal 6.6-10.5 [facility] ([place] Comment on above: Performed By: #### T SHELLIE, FT4 #### [place] [id number] RBC 3.59 10 6/mcL Low 4.10-5.30 [facility] ([place] Comment on above: Performed By: #### T SHELLIE, FT4 #### [address] [address] WBC 12.70 10 3/mcL High 4.50-10.80 [facility] ([place] Comment on above: Performed By: #### T SHELLIE, FT4 #### [address] [address] FT4on 12-10-2020 Free T4 1.30 mcg/dL Normal 0.89-1.76 [facility] ([place]) Comment on above: Result Comment: No te - New Reference Range in effect 19 Performed By: #### T SHELLIE, FT4 #### [place] [id number] TSHon 12-10-2020 TSH 3.193 mIU/mL Normal 0.550-4.780 [facility] ([place]) Comment on above: Result Comment: No te - New Reference Range in effect 19 Performed By: #### T SHELLIE, FT4 #### [place] [address] VIDHon 12-10-2020 Vit. D 25-Hydroxy 36.4 ng/mL Normal [facility] ([place]) Comment on above: Result Comment: Inte rpretive Values Based on Total 25(OH)D: Severe Deficiency <20 ng/mL Mild to Moderate Deficiency 20-30 ng/mL Optimum Levels 30-100 ng/mL Toxicity Possible >100 ng/mL Performed By: #### Dex HENSLEY, FT4 #### [place] [address] .Auto Diffon 12-08-2020 Basophil, Absolute 0.00 10 3/mcL Normal 0.00-0.27 [facility] ([place]) Comment on above: Performed By: #### C BC, ADIFF, ANEU, BMP, MG, GFR #### [place] [id number] Basophils/100 WBC (Bld) 0.5 % Normal 0.0-2.5 [facility] ([place] Comment on above: Performed By: #### C BC, ADIFF, ANEU, BMP, MG, GFR #### [address] [address] Eosinophil, Absolute 0.20 10 3/mcL Normal 0.00-0.65 [facility] ([place]) Comment on above: Performed By: #### C BC, ADIFF, ANEU, BMP, MG, GFR #### [place] [id number] Eosinophils/100 WBC (Bld) 2.8 % Normal 0.0-6.0 [facility] ([place] Comment on above: Performed By: #### C BC, ADIFF, ANEU, BMP, MG, GFR #### [address] [address] Lymphocyte, Absolute 1.70 10 3/mcL Normal 0.90-4.32 [facility] ([place]) Comment on above: Performed By: #### C BC, ADIFF, ANEU, BMP, MG, GFR #### [address] [address] Lymphocytes/100 WBC (Bld) 20.5 % Normal 20.0-40.0 [facility] ([place] Comment on above: Performed By: #### C BC, ADIFF, ANEU, BMP, MG, GFR #### [address] [address] Monocyte, Absolute 0.90 10 3/mcL Normal 0.09-1.40 [facility] ([place]) Comment on above: Performed By: #### C BC, ADIFF, ANEU, BMP, MG, GFR #### [address] [address] Monocytes/100 WBC (Bld) 10.9 % Normal 2.0-13.0 [facility] ([place] Comment on above: Performed By: #### C BC, ADIFF, ANEU, BMP, MG, GFR #### [address] [address] Neutrophils/100 WBC (Bld) 65.3 % Normal 50.0-75.0 [facility] ([place] Comment on above: Performed By: #### C BC, ADIFF, ANEU, BMP, MG, GFR #### [address] [address] .GFRon 12-08-2020 GFR Non- 60 ml/min/1.73sqm Normal [facility] ([place]) Comment on above: Result Comment: GFR Population [...] Performed By: #### T SHELLIE, FT4 #### [address] [address] GFR >60 Normal [facility] ([place]) Comment on above: Result Comment: GFR Population [...] Performed By: #### Dex HENSLEY, FT4 #### [address] [address] .NEUABSon 12-08-2020 Neutrophil, Absolute 5.40 10 3/mcL Normal 2.25-8.10 [facility] ([place]) Comment on above: Performed By: #### C BC, ADIFF, ANEU, BMP, MG, GFR #### [address] [address] BMPon 12-08-2020 BUN/Creatinine Ratio 29.3 ratio High 10.0-22.0 [facility] ([place]) Comment on above: Performed By: #### C BC, ADIFF, ANEU, BMP, MG, GFR #### [address] [address] Calcium [Mass/Vol] 8.7 mg/dL Normal 8.7-10.4 [facility] ([place]) Comment on above: Result Comment: No te - New Reference Range in effect 19 Performed By: #### C BC, ADIFF, ANEU, BMP, MG, GFR #### [address] [address] Chloride [Moles/Vol] 111 mmol/L High 98-110 [facility] ([place] Comment on above: Performed By: #### C BC, ADIFF, ANEU, BMP, MG, GFR #### [address] [address] CO2 [Moles/Vol] 26 mmol/L Normal 22-32 [facility] ([place]) Comment on above: Performed By: #### C BC, ADIFF, ANEU, BMP, MG, GFR #### [address] [address] Creatinine [Mass/Vol] 0.92 mg/dL Normal 0.50-1.20 [facility] ([place] Comment on above: Performed By: #### C BC, ADIFF, ANEU, BMP, MG, GFR #### [address] [address] Electrolyte Balance 5.0 mEq/L Normal 4.0-15.0 [facility] ([place]) Comment on above: Performed By: #### C BC, ADIFF, ANEU, BMP, MG, GFR #### [address] [address] Glucose [Mass/Vol] 103 mg/dL Normal 82-115 [facility] ([place]) Comment on above: Performed By: #### C BC, ADIFF, ANEU, BMP, MG, GFR #### [address] [address] Potassium [Moles/Vol] 4.3 mmol/L Normal 3.5-5.0 [facility] ([place] Comment on above: Performed By: #### C BC, ADIFF, ANEU, BMP, MG, GFR #### [address] [address] Sodium [Moles/Vol] 142 mmol/L Normal 136-145 [facility] ([place] Comment on above: Performed By: #### C BC, ADIFF, ANEU, BMP, MG, GFR #### [place] [address] Urea nitrogen [Mass/Vol] 27.0 mg/dL High 8.0-22.0 [facility] ([place] Comment on above: Performed By: #### C BC, ADIFF, ANEU, BMP, MG, GFR #### [place] [id number] CBCon 12-08-2020 Erythrocyte distribution width (RBC) [Ratio] 13.8 % Normal 11.5-15.5 [facility] ([place] Comment on above: Performed By: #### C BC, ADIFF, ANEU, BMP, MG, GFR #### [place] [address] Hematocrit (Bld) [Volume fraction] 31.5 % Low 34.0-46.0 [facility] ([place] Comment on above: Performed By: #### C BC, ADIFF, ANEU, BMP, MG, GFR #### [place] [address] Hgb 10.6 G/dL Low 12.0-16.0 [facility] ([place] Comment on above: Performed By: #### C BC, ADIFF, ANEU, BMP, MG, GFR #### [place] [address] MCH (RBC) [Entitic mass] 31.3 pg Normal 27.0-33.0 [facility] ([place]) Comment on above: Performed By: #### C BC, ADIFF, ANEU, BMP, MG, GFR #### [place] [address] MCHC 33.6 G/dL Normal 32.0-36.0 [facility] ([place] Comment on above: Performed By: #### C BC, ADIFF, ANEU, BMP, MG, GFR #### [place] [address] MCV (RBC) [Entitic vol] 93.4 fL Normal 80.0-99.0 [facility] ([place] Comment on above: Performed By: #### C BC, ADIFF, ANEU, BMP, MG, GFR #### [place] [address] Platelet 280 10 3/mcL Normal 150-450 [facility] ([place]) Comment on above: Performed By: #### C BC, ADIFF, ANEU, BMP, MG, GFR #### [place] [address] Platelet mean volume (Bld) [Entitic vol] 8.9 fL Normal 6.6-10.5 [facility] ([place]) Comment on above: Performed By: #### C BC, ADIFF, ANEU, BMP, MG, GFR #### [place] [address] RBC 3.37 10 6/mcL Low 4.10-5.30 [facility] ([place] Comment on above: Performed By: #### C BC, ADIFF, ANEU, BMP, MG, GFR #### [place] [address] WBC 8.30 10 3/mcL Normal 4.50-10.80 [facility] ([place] Comment on above: Performed By: #### C BC, ADIFF, ANEU, BMP, MG, GFR #### [place] [address] MGon 12-08-2020 Magnesium [Mass/Vol] 2.1 mg/dL Normal 1.6-2.4 [facility] ([place]) Comment on above: Performed By: #### T SH, FT4 #### [place] [address] CT HEAD OR BRAIN W/O CONTRAS Ton [...] By Lan Luke MD Dictated Date: 12/07/2020 8:37:33 PM Prelim Date: 12/07/2020 8:40:32 PM Sign Date: 12/07/2020 8:56:27 PM Ordering Provider: FAVIAN CABELLO [facility] ([place]) CT MAXILLOFACIAL W/O CONTRAS Ton 12-07-2020 CT [...] 12/07/2020 8:58:05 PM Ordering Provider: FAVIAN CABELLO [facility]) CT SPINE CERVICAL W/O CONTRA STon 12-07-2020 [...] humeral surgical neck/proximal metaphyseal fractures noted on satellite technician view. IMPRESSION: No acute abnormality of the cervical spine. Moderate degenerative changes through the cervical spine. Left humeral acute fracture noted on satellite technician view. I have personally reviewed the images of this examination and agree with the resident's findings and interpretation. Interpreted by: Lan Luke MD Preliminary Report By: Donavon Blackmon MD Electronically signed By Lan Luke MD Dictated Date: 12/07/2020 8:40:46 PM Prelim Date: 12/07/2020 8:43:46 PM Sign Date: 12/07/2020 8:57:26 PM Ordering Provider: FAVIAN CABELLO [facility] ([place]) XR SHOULDER MINIMUM 2 VIEWS LEFTon 12-07-2020 [...] 12/07/2020 7:15:53 PM Ordering Provider: FAVIAN CABELLO [facility] ([place]) FT4on 11-13-2020 Free T4 1.33 mcg/dL Normal 0.89-1.76 [facility] ([place]) Comment on above: Result Comment: No te - New Reference Range in effect 19 Performed By: #### T , FT4 #### [place] [address] TSHon 11-13-2020 TSH 2.416 mIU/mL Normal 0.550-4.780 [facility] ([place]) Comment on above: Result Comment: No te - New Reference Range in effect 19 Performed By: #### T , FT4 #### [address] [address] Progress Noteon 09-22-2017 HIM IP Note OR Hospital Sales Representative Normal [facility] HIM IP Note OR Hospital Sales Representative Normal [facility] Clinical Note 12-19-2020 Note Date [...] 100,000 cfu/ml Klebsiella pneumoniae subsp pneumoniae Suspected ESBl-pediatric physician. Confirmation of suspected ESBL production in progress. Final results to follow. >100,000 cfu/ml Presumptive Group D, non Enterococcus Preliminary Report [] Verified Date/Time/Personnel: 12/17/2020 10:12 EDT 50,000 - 100,000 cfu/ml Klebsiella pneumoniae subsp pneumoniae Suspected ESBl-pediatric physician. Confirmation of suspected ESBL production in progress. [...] Locations *1: This test was performed at: [facility], [address] [place] [address], [phone] , [facility] ([place]) Comment on above: Performed By: #### C UR ####[address] [address] Summary Purpose Family History No Family History Records FoundNo Family History Records Found Advance Directives No Advanced Directives Records FoundNo Advanced Directives Records Found Additional Source Comments INFORMATION SOURCE (unrecogn ized section and content) DATE CREATED AUTHOR 12/01/2017 [facility] DATE CREATED AUTHOR AUTHOR'S LENNY DE LA FUENTE 09/21/2021 [facility]rian ([place]) FOR RECORDS PERTAINING TO PATIENTS WHO ARE [...] BE BASED ON THE PRIMARY CLINICAL RECORDS. [facility]. provides no warranty or guarantee of the accuracy or completeness of information in this document.
--- NOTE | 2024-04-19 02:12 | ECHOCS_ITS ---
Reason For Study: CHF Procedure This was a 2D Doppler, Color Flow transthoracic echocardiogram. The study was technically difficult. Contrast injection was performed. Exam performed portable in patient room. Left Ventricle Normal LV size. Left ventricular systolic function is normal. The estimated ejection fraction is 60 %. Normal diastology for age. No regional wall motion abnormalities noted. Right Ventricle Normal right ventricle. Normal systolic function. Atria The left atrium is mildly enlarged. Normal right atrium. Mitral Valve The mitral valve is structurally normal. No prolapse or stenosis seen. Trivial mitral valve insufficiency. Tricuspid Valve Normal tricuspid valve. Trivial tricuspid valve insufficiency. Aortic Valve Trisinus/trileaflet aortic valve. Pulmonic Valve The pulmonic valve is not well visualized. Great Vessels Normal aortic root. Pericardium/Pleural No pericardial effusion. Medication Diluted definity 1.5ml given slow IV push to enhance endocardial definition. MMode/2D Measurements & Calculations LVIDd: 3.9 cm IVSd: 0.85 cm LVOT diam: 2.0 cm LVIDs: 2.7 cm LVPWd: 1.1 cm RVDd: 2.8 cm FS: 31.6 % LVOT area: 3.0 cm2 asc Aorta Diam: 3.7 cm LAV(MOD-bp): 70.0 ml LA A4 area: 25.4 cm2 LAV(MOD-bp) Indexed: 28.7 ml/m2 LAV(MOD-sp2): 61.8 ml LAV(MOD-sp4): 80.5 ml LA dimension(2D): 4.3 cm RA A4 area: 14.4 cm2 Time Measurements MV dec time: 0.25 sec Doppler Measurements & Calculations MV E max hay: 59.3 cm/sec Lat Peak E' Hay: 15.5 cm/sec Med Peak E' Hay: 7.5 cm/sec MV A max hay: 48.0 cm/sec E/E' lat: 3.8 E/E' med: 7.9 MV E/A: 1.2 MV dec slope: 240.4 cm/sec2 Ao V2 max: 126.8 cm/sec LV V1 max: 111.4 cm/sec Ao max P.4 mmHg LV V1 max P.0 mmHg Ao V2 mean: 85.1 cm/sec LV V1 mean P.5 mmHg Ao mean P.3 mmHg LV V1 mean: 73.4 cm/sec Ao V2 VTI: 23.9 cm LV V1 VTI: 21.6 cm AV (velocity ratio): 0.90 ANGIE(I,D): 2.7 cm2 ANGIE(V,D): 2.7 cm2 SV(LVOT): 65.1 ml PA V2 max: 85.9 cm/sec ECHO/Echo Complete W/ Contrast Interpretation Summary The estimated ejection fraction is 60 %. The left atrium is mildly enlarged. Structually normal valves. The study was technically difficult. Contrast injection was performed. Ordering Physician: Dharmesh Delgado Referring Physician: Prakash Felipe Performed By: Jenny Baig and Student
--- NOTE | 2024-04-19 02:12 | VDLE_ITS ---
Reason For Study: ELEVATED D-DIMER RIGHT LEFT GSV is normal. GSV is normal. CFV is compressible, spontaneous, phasic, CFV is compressible, spontaneous, phasic, competent and demonstrates normal competent, and demonstrates normal augmentation. augmentation. FV is compressible, spontaneous, phasic, FV is compressible, spontaneous, phasic, competent and demonstrates normal competent and demonstrates normal augmentation. augmentation. POP V is compressible, spontaneous, phasic, POP V is compressible, spontaneous, phasic, competent and demonstrates normal competent and demonstrates normal augmentation. augmentation. PTV is compressible. Unable to visualize PTV & PERV. Unable to visualize the PERV. Procedure This is a venous duplex using B-mode, color flow and spectral Doppler. Exam performed in department. The study was technically limited. The study was technically difficult. A preliminary report was called and/or faxed to [facility]. VL/Venous Duplex US - Brain Extrem Interpretation Summary Deep veins of the bilateral lower extremities are patent and compressible segme ntally. There is no evidence of bilateral lower extremity deep vein thrombosis. The bilateral great saphenous veins appear patent and compressible segmentally. Limited study below knee bilateral. Ordering Physician: Dharmesh Delgado Referring Physician: Prakash Felipe Performed By: Mecca Miller, SORIN, RVT
[2024-04-19 06:48] LABS: Absolute Lymphocyte Count 2.09 X10^3/uL (0.83-4.51); Absolute Neutrophil Count 5.6 X10^3/uL (2.0-7.7); Basophil# 0.09 X10^3/uL; Basophil% 0.9 % (0-1); Eosinophils% 9.2 % (0-5); Hematocrit 35.6 % (37-47); Hemoglobin 11.2 g/dL (12.0-15.0); Lymphocyte # 2.09 X10^3/ul (0.83-4.51); Lymphocyte % 21.4 % (19-41); Mean Corp Hgb Conc 31.5 g/dL (32-36); Mean Corpuscular Hgb 31.7 pg (27.0-32.0); Mean Corpuscular Volume 100.8 fL (81-99); Mean Platelet Vol. 10.3 fl (6.2-12.0); Monocyte# 1.01 X10^3/uL; Monocyte% 10.3 % (0-10); NRBC Flagged by Analyzer 0 % (0-5); Neutrophil # 5.64 X10^3/uL (2.7-7.7); Neutrophil % 57.9 % (47-70); Platelet Count 334 K/mm3 (150-450); RBC Distribution Width SD 51.2 fl (35.1-43.9); Red Blood Count 3.53 M/mm3 (4.2-5.4); White Blood Count 9.8 K/mm3 (4.4-11.0)
[2024-04-19 08:22] LABS: BNP,B-Type NATRIURETIC PEPTIDE 180.2 pg/mL (0-100)
[2024-04-19 08:25] LABS: Vitamin B12 291 pg/mL (211-911)
[2024-04-19 08:26] LABS: ALB/GLOB Ratio 0.7 RATIO (0.9-2.4); AST(SGOT) 17 U/L (15-37); Alanine Aminotransfer ALT/SGPT 17 U/L (13-56); Albumin, Serum 2.6 g/dL (3.2-5.0); Alkaline Phosphatase 52 U/L (45-117); Anion Gap 4 (5-15); BUN 22 mg/dL (7-18); BUN/Creat Ratio 17.6 RATIO (10-20); Calcium,Total 8.7 mg/dL (8.5-10.1); Chloride 111 mmol/L (98-107); Creatinine, Serum 1.25 mg/dL (0.55-1.02); EST Glomerular Filtration Rate 44 mL/min (>60); Est Glom Filt Rate - Afr Amer 53 mL/min (>60); Estimated Creatinine Clearance 55.99 ml/min; Globulin 3.9 g/dL (2.2-4.2); Glucose 104 mg/dL (74-106); Magnesium 2.1 mg/dL (1.6-2.6); Phosphorus 4.1 mg/dL (2.5-4.9); Potassium 4.5 mmol/L (3.5-5.1); Protein, Total 6.5 g/dL (6.4-8.2); Sodium Level 140 mmol/L (136-145)
[2024-04-19] MEDS: DULoxetine Hcl 60 MG Capsule PO (08:45)
[2024-04-19] MEDS: Celecoxib 200 MG Capsule PO (08:45)
[2024-04-19] MEDS: Calcium Carbonate 500 MG Tablet PO (08:45)
[2024-04-19] MEDS: Aspirin E.C. 81 MG Tablet PO (08:45)
[2024-04-19] MEDS: Multivitamins,Ther W-Minerals Tablet 1 TABLET PO (08:45)
--- NOTE | 2024-04-19 09:38 | PCM.PN.HOSP ---
Reason for Visit Reason for Visit: Diagnoses Morbid (severe) obesity due to excess calories (04/19/24) Obstructive sleep apnea (adult) (pediatric) (04/19/24) Venous insufficiency (chronic) (peripheral) (04/19/24) Lymphedema, not elsewhere classified (04/19/24) Acute upper respiratory infection, unspecified (04/19/24) Other forms of dyspnea (04/19/24) Weakness (04/19/24) Body mass index [BMI] 60.0-69.9, adult (04/19/24) Subjective Subjective Patient seen at bedside and was feeling very nauseous, daughter said that she has had migraines for years and often times does not feel the headache but will just feel unwell and have the nausea and was asking about her migraine medicine. Patient reports she is unsure if her breathing is any better however daughter reports yesterday she seemed to be audibly wheezing and today does seem to be breathing better, daughter also reports that her lower extremity swelling was the main reason why they brought her in and with her legs elevated that is also seeming to improve. Patient has CPAP at home, intermittently compliant. Additionally she and her daughter reports she is compliant with her Synthroid however upon further discussion she takes this when she takes all of her other medications so there is likely very poor absorption causing her hypothyroid state. Objective Data Objective Data Vital Signs: Vital Signs Temp Pulse Resp BP Pulse Ox O2 Del Method 97.7 F L 72 18 121/60 H 96 Room Air 04/19/24 08:43 04/19/24 08:43 04/19/24 08:43 04/19/24 08:43 04/19/24 08:43 04/19/24 08:43 Oxygen Delivery Method Room Air Weight: 157 kg Body Mass Index (BMI) 59.4 Intake & Output: Intake and Output for Last 24 Hours 04/17/24 04/18/24 04/19/24 23:59 23:59 23:59 Intake Total 240 / 240 Output Total 525 / 525 Balance -285 / -285 Lab / Micro Data 04/19/24 06:23 04/19/24 06:23 Labs: Laboratory Results - last 24 hr 04/18/24 17:55: WBC 9.6, RBC 3.53 L, Hgb 11.4 L, Hct 35.3 L, MCV 100.0 H, MCH 32.3 H, MCHC 32.3, RDW Std Deviation 51.5 H, RDW Coeff of Stephanie 13.9, Plt Count 343, MPV 10.2, Immature Gran % (Auto) 0.500, Neut % (Auto) 54.4, Lymph % (Auto) 23.1, [place] % (Auto) 10.3 H, Eos % (Auto) 10.8 H, Baso % (Auto) 0.9, Absolute Neuts (auto) 5.2, Absolute Lymphs (auto) 2.22, Nucleated RBC % 0, PT 13.3, INR 1.0, APTT 25.2, D-Dimer Quant (PE/DVT) 2.53 H*, Sodium 139, Potassium 4.5, Chloride 111 H, Carbon Dioxide 23.0, Anion Gap 6, BUN 22 H, Creatinine 1.25 H, Estim Creat Clear Calc 57.60, Est GFR (MDRD) Af Amer 53 L, Est GFR (MDRD) Non-Af 44 L, BUN/Creatinine Ratio 17.6, Glucose 93, Calcium 9.2, Troponin I High Sens 10, B-Natriuretic Peptide 264.6 H 04/19/24 06:23: WBC 9.8, RBC 3.53 L, Hgb 11.2 L, Hct 35.6 L, MCV 100.8 H, MCH 31.7, MCHC 31.5 L, RDW Std Deviation 51.2 H, RDW Coeff of Stephanie 14.0, Plt Count 334, MPV 10.3, Immature Gran % (Auto) 0.300, Neut % (Auto) 57.9, Lymph % (Auto) 21.4, [place] % (Auto) 10.3 H, Eos % (Auto) 9.2 H, Baso % (Auto) 0.9, Absolute Neuts (auto) 5.6, Absolute Lymphs (auto) 2.09, Nucleated RBC % 0, Sodium 140, Potassium 4.5, Chloride 111 H, Carbon Dioxide 25.0, Anion Gap 4 L, BUN 22 H, Creatinine 1.25 H, Estim Creat Clear Calc 55.99, Est GFR (MDRD) Af Amer 53 L, Est GFR (MDRD) Non-Af 44 L, BUN/Creatinine Ratio 17.6, Glucose 104, Calcium 8.7, Phosphorus 4.1, Magnesium 2.1, Total Bilirubin 0.30, AST 17, ALT 17, Alkaline Phosphatase 52, B-Natriuretic Peptide 180.2 H, Total Protein 6.5, Albumin 2.6 L, Globulin 3.9, Albumin/Globulin Ratio 0.7 L, Vitamin B12 291, Folate 19.80, TSH 25.500 H Micro: Microbiology 04/19/24 03:40 Mucosa - Nasopharyngeal Respiratory Panel (PCR) - Final Radiography Diagnostic Testing: Radiology Impression Chest X-Ray 04/18/24 18:20 IMPRESSION: 1. Cardiac silhouette upper limit of normal and central vascular congestion noted without krista congestive failure. 2. No focal infiltrate or consolidation. Electronically Signed: Anthony Rubio MD at 18:56 EST , Chest CTA 04/18/24 19:16 IMPRESSION: undefined Physical Exam Narrative General: Alert, patient nauseous and appears acutely uncomfortable HEENT: Atraumatic, normocephalic Eyes: Anicteric, normal conjunctiva, extraocular movements grossly intact Neck: Supple Respiratory: Diminished in the bases likely secondary to body habitus, otherwise normal respiratory effort Cardiovascular: Regular rate and rhythm GI: Soft, nontender, nondistended Extremities: Has bilateral lower extremity edema Musculoskeletal: Moving all extremities Neuro: No overt focal neurological deficits Skin: Some chronic changes in both lower extremities but nothing overtly appearing to be red and cellulitic Psych: Cooperative Assessment & Plan Assessment/Plan (1) Dyspnea on exertion: PLAN: Plan #SOB and LE swelling with chronic lower extremity lymphedema and chronic venous insufficiency -Highly suspect this is multifactorial -Patient presented with 1 day of progressive dyspnea on exertion also felt her legs had increased swelling -BNP 180 and yesterday was 264 but back in 2021 it was 205 as we do not have a normal in our system -CTA chest due to elevated D-dimer obtained and negative for PE and otherwise no acute abnormalities -Chest x-ray reviewed, very difficult to tell if patient has component of fluid overload as this appears to be underpenetrated -Was found to have a TSH of 25, query if shortness of breath could be due to or exacerbated by undertreated hypothyroidism -Echo was ordered -Upon discussion with patient and daughter it was also reported the patient not always compliant with CPAP, could be component of underlying pulmonary hypertension which will hopefully be better evaluated by echo -CPAP nightly -She did receive one-time dose of IV Lasix in the ED, monitoring closely to see if additional # Hypoxemia -Patient 88% with ambulation in the ED per report they do not see this documented vital signs -Again suspect this is multifactorial, see #1 # Nausea -Reportedly patient gets migraines but no longer really feels the headache and will just feel generally unwell and usually nauseous, patient to trial rizatriptan, antiemetics as needed -If no improvement consider further workup # History of hypothyroidism -TSH 25.5 -Patient reports compliance with her levothyroxine however she takes it at the same time as her other medications so suspect that she is unable to absorb this causing a hypothyroid state -Discussed how to take levothyroxine and the importance of doing so, patient and daughter verbalized understanding -Will be given at 6 AM here for other medications to allow for absorption #PAM -Continue nightly CPAP # Elevated D-dimer -Unclear etiology, patient negative for PE -Lower extremity Dopplers were ordered and were negative however study below the knee was limited -Given symptoms are bilateral and no large proximal clot seen suspect this is less likely, will switch to DVT prophylaxis # CKD stage III b -Appears to be at baseline -Avoid nephrotoxic agents -Daily BMPs #Depression/anxiety -Continue home medications #Morbid obesity with history of gastric sleeve -BMI documented as 59.4 kg/m? at time of admission -Complicates treatment, prognosis, outcomes -Recommend weight loss and lifestyle changes #DVT ppx: Lovenox subcu Natalia Robison MD Time spent in the patient's overall evaluation, decision-making process, review of diagnostic data, adjustment of management, discussion with other providers, nursing and ancillary staff involved in patient's care documentation, 40 Minutes Charges/Coding Visit Charges Inpatient E&M: 27080 [facility] Hosp L2
[2024-04-19] MEDS: Rizatriptan Benzoate 5 MG Tablet PO (11:30)
--- NOTE | 2024-04-19 14:51 | WOUNDNOTE ---
Was consulted on patient for redness to legs. pt with chronic lymphedema. some very small open areas noted to the left paiz. some mild redness to bilateral shins. no drainage noted at this time. daughter present in room. states the edema is much improved today. pt does have compression sleeves that she wears at home, but admits that patient takes them off often at home. encouraged pt to wear compression during the day and can remove at night. also encouraged patient to elevate her legs as much as possible. will monitor. see skin photos.
--- NOTE | 2024-04-19 15:12 | WOUNDNOTE ---
skin photo: right lower leg
--- NOTE | 2024-04-19 15:12 | WOUNDNOTE ---
skin photo: left lower leg
--- NOTE | 2024-04-19 15:17 | CHAPLAIN ---
Type of Pastoral Visit _x__ Initial Visit ___ Follow-up Visit ___ On-call Visit ___ General Patient Visit ___ Spiritual Assessment ___ Family Conference ___ Bereavement ___ Rapid Response ___ Code Blue ___ Other (describe below) Pastoral Care Referral From _x__ Patient ___ Family ___ Nurse ___ Physician ___ Children'S Author ___ Serging Machine Operator ___ Other (describe below) Sacrament/Intervention _x__ Active listening ___ Anointing ___ Nondenominational ___ Bereavement ___ Communion ___ Tori exploration ___ _x__ Life review _x__ Prayer ___ Reconciliation ___ Sacrament of Sick ___ Supportive presence ___ Wedding ___ Other (describe below) Pastoral Comments patient is resting in bed and daughter is at bedside; pt is welcoming and explains her name and heritage as Janiya; pt is connected to the [place] and the local parish; pt gives statements on how she is feeling and handling the situation; pt welcomes a prayer for her current support
[2024-04-19] MEDS: 0.9% Saline Lock 10 ML Syringe IV (21:44)
[2024-04-19] MEDS: Acetaminophen 325 MG Tablet 650 MG PO (21:46)
[2024-04-19] MEDS: Enoxaparin 40 MG/0.4 ML Syringe SC (21:47)
[2024-04-20 03:55] VITALS: BP 116/66; PULSE 72; RESP 18; TEMP 36.3; O2SAT 93
[2024-04-20 04:43] VITALS: BMI 60.1
[2024-04-20] MEDS: Levothyroxine 100 MCG Tablet 200 MCG PO (05:04)
[2024-04-20 07:30] VITALS: O2SAT 96
[2024-04-20 07:51] VITALS: BP 125/70; PULSE 65; RESP 16; TEMP 36.5; O2SAT 95
[2024-04-20 08:32] LABS: Absolute Lymphocyte Count 2.05 X10^3/uL (0.83-4.51); Absolute Neutrophil Count 3.2 X10^3/uL (2.0-7.7); Basophil# 0.07 X10^3/uL; Eosinophil# 0.98 X10^3/uL; Eosinophils% 13.8 % (0-5); Hemoglobin 11.7 g/dL (12.0-15.0); Lymphocyte # 2.05 X10^3/ul (0.83-4.51); Lymphocyte % 28.8 % (19-41); Mean Corp Hgb Conc 31.6 g/dL (32-36); Mean Corpuscular Hgb 32.1 pg (27.0-32.0); Mean Corpuscular Volume 101.4 fL (81-99); Monocyte# 0.81 X10^3/uL; Monocyte% 11.4 % (0-10); NRBC Flagged by Analyzer 0 % (0-5); Neutrophil # 3.19 X10^3/uL (2.7-7.7); Neutrophil % 44.7 % (47-70); Platelet Count 329 K/mm3 (150-450); RBC Distribution Width CV 13.7 % (11.6-14.6); RBC Distribution Width SD 51.5 fl (35.1-43.9); Red Blood Count 3.65 M/mm3 (4.2-5.4); White Blood Count 7.1 K/mm3 (4.4-11.0)
[2024-04-20] MEDS: Aspirin E.C. 81 MG Tablet PO (08:48)
[2024-04-20] MEDS: DULoxetine Hcl 60 MG Capsule PO (08:49)
[2024-04-20] MEDS: Calcium Carbonate 500 MG Tablet PO (08:49)
[2024-04-20] MEDS: Enoxaparin 40 MG/0.4 ML Syringe SC ×2 (08:49→21:40)
[2024-04-20] MEDS: Multivitamins,Ther W-Minerals Tablet 1 TABLET PO (08:49)
[2024-04-20] MEDS: Celecoxib 200 MG Capsule PO (08:49)
[2024-04-20 08:57] LABS: Anion Gap 4 (5-15); BUN 24 mg/dL (7-18); BUN/Creat Ratio 19.2 RATIO (10-20); Calcium,Total 8.3 mg/dL (8.5-10.1); Chloride 110 mmol/L (98-107); Creatinine, Serum 1.25 mg/dL (0.55-1.02); EST Glomerular Filtration Rate 44 mL/min (>60); Est Glom Filt Rate - Afr Amer 53 mL/min (>60); Estimated Creatinine Clearance 56.65 ml/min; Glucose 91 mg/dL (74-106); Potassium 4.4 mmol/L (3.5-5.1); Sodium Level 136 mmol/L (136-145)
[2024-04-20 09:29] LABS: Hemoglobin A1c 5.2 % (3.8-5.6)
[2024-04-20 09:46] VITALS: O2SAT 94; O2SAT 95
--- NOTE | 2024-04-20 09:59 | PCM.PN.HOSP ---
Reason for Visit Reason for Visit: Diagnoses Other forms of dyspnea (04/19/24) Subjective Subjective Patient reports she is feeling better overall, legs feel little bit tight again today, does not feel like she is having any specific problems with her breathing, nausea resolved Objective Data Objective Data Vital Signs: Vital Signs Temp Pulse Resp BP Pulse Ox O2 Del Method FiO2 97.7 F L 65 16 125/70 H 95 Room Air 21 04/20/24 07:51 04/20/24 07:51 04/20/24 07:51 04/20/24 07:51 04/20/24 07:51 04/20/24 08:02 04/19/24 23:30 Oxygen Delivery Method Room Air Weight: 159.8 kg Body Mass Index (BMI) 60.1 Intake & Output: Intake and Output for Last 24 Hours 04/18/24 04/19/24 04/20/24 23:59 23:59 23:59 Intake Total 740 / 740 Output Total 925 / 1375 450 / 450 Balance -185 / -635 -450 / -450 Lab / Micro Data 04/20/24 08:18 04/20/24 08:18 Labs: Laboratory Results - last 24 hr 04/20/24 08:18: WBC 7.1, RBC 3.65 L, Hgb 11.7 L, Hct 37.0, MCV 101.4 H, MCH 32.1 H, MCHC 31.6 L, RDW Std Deviation 51.5 H, RDW Coeff of Stephanie 13.7, Plt Count 329, MPV 10.0, Immature Gran % (Auto) 0.300, Neut % (Auto) 44.7 L, Lymph % (Auto) 28.8, [place] % (Auto) 11.4 H, Eos % (Auto) 13.8 H, Baso % (Auto) 1.0, Absolute Neuts (auto) 3.2, Absolute Lymphs (auto) 2.05, Nucleated RBC % 0, Sodium 136, Potassium 4.4, Chloride 110 H, Carbon Dioxide 22.0, Anion Gap 4 L, BUN 24 H, Creatinine 1.25 H, Estim Creat Clear Calc 56.65, Est GFR (MDRD) Af Amer 53 L, Est GFR (MDRD) Non-Af 44 L, BUN/Creatinine Ratio 19.2, Glucose 91, Hemoglobin A1c 5.2, Calcium 8.3 L Micro: Microbiology 04/19/24 10:00 Nasal Secretion SARS-CoV-2 Antigen (Rapid) - Final 04/19/24 03:40 Mucosa - Nasopharyngeal Respiratory Panel (PCR) - Final Radiography Diagnostic Testing: Radiology Impression Echocardiogram 04/19/24 02:12 Interpretation Summary The estimated ejection fraction is 60 %. The left atrium is mildly enlarged. Structually normal valves. The study was technically difficult. Contrast injection was performed. Ordering Physician: Dharmesh Delgado Referring Physician: Prakash Felipe Performed By: Jenny Baig and Student Venous Doppler Study 04/19/24 02:12 Interpretation Summary Deep veins of the bilateral lower extremities are patent and compressible segmentally. There is no evidence of bilateral lower extremity deep vein thrombosis. The bilateral great saphenous veins appear patent and compressible segmentally. Limited study below knee bilateral. Ordering Physician: Dharmesh Delgado Referring Physician: Prakash Felipe Performed By: Mecca Miller, SORIN, RVT Physical Exam Narrative General: Alert, oriented, no apparent distress HEENT: Atraumatic, normocephalic Eyes: Anicteric, normal conjunctiva, extraocular movements grossly intact Neck: Supple Respiratory: Somewhat diminished to the bases but suspect in part due to body habitus, normal respiratory effort Cardiovascular: Regular rate and rhythm GI: Soft, nontender, no rebound, guarding, rigidity Extremities: Does appear to have some increased edema in lower extremities from yesterday and they are somewhat tense, little bit of weeping on left leg Musculoskeletal: Moving all extremities Neuro: No overt focal neurological deficits Skin: Does have some scattered erythema on lower extremities but does not appear cellulitic in nature Psych: Cooperative Assessment & Plan Assessment/Plan (1) Dyspnea on exertion: PLAN: Plan #SOB and LE swelling with chronic lower extremity lymphedema and chronic venous insufficiency -Highly suspect this is multifactorial -Patient presented with 1 day of progressive dyspnea on exertion also felt her legs had increased swelling -BNP 180 and yesterday was 264 but back in 2021 it was 205 as we do not have a normal in our system -CTA chest due to elevated D-dimer obtained and negative for PE and otherwise no acute abnormalities -Chest x-ray reviewed, very difficult to tell if patient has component of fluid overload as this appears to be underpenetrated -Was found to have a TSH of 25, query if shortness of breath could be due to or exacerbated by undertreated hypothyroidism -Echo was ordered -Upon discussion with patient and daughter it was also reported the patient not always compliant with CPAP, could be component of underlying pulmonary hypertension which will hopefully be better evaluated by echo -CPAP nightly -She did receive one-time dose of IV Lasix in the ED, monitoring closely to see if additional -04/19: Patient does not feel she is having any problems with her breathing but does feel like legs are somewhat tight again today, will give another dose of IV Lasix, patient with EF of 60%, normal LV size, normal diastole for age, unable to assess PASP, structurally normal valves. Patient did appear somewhat peripherally overloaded however no evidence of heart failure on echocardiogram, largely may be due to her venous insufficiency and lymphedema and daughter reports she has been dangling her legs for period also difficulty with CPAP compliance and hypothyroid state have likely contributed to all of the above # Hypoxemia -Patient 88% with ambulation in the ED per report they do not see this documented vital signs -Again suspect this is multifactorial, see #1 -04/19: Could be secondary to body habitus, cannot rule out a component of pulmonary hypertension given this was not well-visualized on echocardiogram, will need walked to assess for O2 patient will be going home # Nausea -Reportedly patient gets migraines but no longer really feels the headache and will just feel generally unwell and usually nauseous, patient to trial rizatriptan, antiemetics as needed -If no improvement consider further workup -04/19: Resolved # History of hypothyroidism -TSH 25.5 -Patient reports compliance with her levothyroxine however she takes it at the same time as her other medications so suspect that she is unable to absorb this causing a hypothyroid state -Discussed how to take levothyroxine and the importance of doing so, patient and daughter verbalized understanding -Will be given at 6 AM here for other medications to allow for absorption -04/19: Seems more awake and alert after changing timing of Synthroid #PAM -Continue nightly CPAP -04/19: Patient did wear CPAP last night, continue to encourage compliance # Elevated D-dimer -Unclear etiology, patient negative for PE -Lower extremity Dopplers were ordered and were negative however study below the knee was limited -Given symptoms are bilateral and no large proximal clot seen suspect this is less likely, will switch to DVT prophylaxis -04/19: No underlying etiology identified, at this time we will continue present management and monitoring # CKD stage III b -Appears to be at baseline -Avoid nephrotoxic agents -Daily BMPs -04/19: Creatinine remains unchanged, continue current management, repeat in the a.m. especially given patient is to receive another dose of IV Lasix Chronic medical problems: #Depression/anxiety -Continue home medications #Morbid obesity with history of gastric sleeve -BMI documented as 59.4 kg/m? at time of admission -Complicates treatment, prognosis, outcomes -Recommend weight loss and lifestyle changes #DVT ppx: Lovenox subcu Natalia Robison MD Time spent in the patient's overall evaluation, decision-making process, review of diagnostic data, adjustment of management, discussion with other providers, nursing and ancillary staff involved in patient's care documentation, 36 Minutes Charges/Coding Visit Charges Inpatient E&M: 25401 [facility] Hosp L2
--- NOTE | 2024-04-20 11:10 | CM.UR ---
RN?CM?TEST CARRIER?CM?to room to meet with patient for initial transition planning/care coordination?assessment.?RN?CM?introduced self and role at [facility].? Pt voices understanding and consents to?assessment?at this time.? Pt sitting up in chair in room in no distress at this time.? Daughter, Brooks Koenig/HCPTRICIA, in room visiting and pt agreeable to her being present during assessment. Pt is A/O at this time and answers all questions appropriately.?? Care providers, pharmacy, and demographics verified/updated at this time. Strata: 1 PCP: Dr Yeh Specialists: none at present [facility]erred [facility] Benef[facility]:?yes Living Will/HPOA:?Pt has both LW and HCPOA, who is her daughter, Brooks. Daughter, , is 1st alternative. LNOK: 2 daughters: Brooks and . Son who lives in [place]. Living Arrangements: Lives w/daughter, Brooks, in [facility]. They hire private-duty aides that come in 5 days/week for a couple hours a day. They assist pt w/showering, laundry, wrapping pt's legs w/lymphema wraps, assist w/transportation, and assist w/other various home tasks. Brooks (dtr) is a nurse and works in [place], so is not home until about 6 PM. Daughter, , manages her medications and also works. will stop in to check on pt after work and re-wrap lymphedema wraps. When pt home alone, they have things modified so she can manage on her own independenlty. Transportation:? Daughters, private-duty aides DME: ? Pt has the following DME:?RTS, adjustable hospital bed, toilet tongs for hygeine, manager editorial, rollator, grab bars, hand held shower, lift chair, medical alert, CPAP, lymphedema wraps. Pt does not have a pulse ox, recommended to get. Dtr states that is a good idea and she plans to purchase one. Pt does not have home O2. If pt would dc home and qualify for home O2, [employer] is their preference. HHC/SNF: Pt has had HHC thru [facility] in the past and has been to [facility] SNF 2-3 x's in the past. Discussed discharge planning. Dtr states feels it would be safer for pt to go to a SNF for rehab for a short period of time before returning home. Pt is agreeable. [facility] is their 1st choice. [facility]CU is 2nd choice. They decline wanting list of other SNF options. Kimber PERKINS, made aware. Pt and dtr made aware referral would be sent and would need to wait on acceptance. Also discussed [place] IN-patient criteria for SNF benefits and questions answered. They deny having other discharge needs/concern at this time. PLAN:??SNF [facility] BSN?RN?CM
[2024-04-20] MEDS: Furosemide 20 MG/2 ML VIAL IV (11:27)
--- NOTE | 2024-04-20 13:50 | CASEMGMT ---
Discharge Planning A list of SNF providers including quality and resource use data and consistent with the patient's preferred geographic region, medical needs, and insurance network was created in [employer] Guide.? This list was provided to the SW. Reema Coleman Discharge Planning Asst.
--- NOTE | 2024-04-20 13:56 | CASEMGMT ---
Social Work SW met with pt and dgt to discuss discharge plan. Pt is agreeable that she will need short term rehab prior to return to her apartment. A list of SNF providers including quality and resource use data and consistent with the patient?s preferred geographic region, medical needs, and insurance network were provided from the [employer] Guide. Pt preferred providers are 1. [facility] and 2. [facility]. DC graduate research assistant updated and referral to be sent to [facility]. Plan: [facility], pending acceptance [facility]
--- NOTE | 2024-04-20 14:05 | CASEMGMT ---
Addendum entered by Reema Coleman 04/20/24 15:02: [facility] has accepted. SW updated. Reema Coleman DC Planning Original Note: Discharge Planning Referral sent to [facility]. Reema Coleman DC Planning Asst.
[2024-04-20 14:42] VITALS: BP 130/68; PULSE 74; RESP 18; TEMP 36.8; O2SAT 94
--- NOTE | 2024-04-20 15:07 | CASEMGMT ---
Discharge Planning [facility] aware that pt will likely discharge on Tuesday. Wknd phone/fax obtained and green sheet placed in chart. Reema Coleman DC Planning Asst.
--- NOTE | 2024-04-20 15:08 | CASEMGMT ---
Social Work [facility] on Tuesday or after. PASRR completed in [facility]. SW updated pt's dgt that [facility] accepted. Green sheet placed on pt chart to facility a weekend DC. Plan: [facility], skilled level of care [facility]
[2024-04-20 20:40] VITALS: BP 151/81; PULSE 77; RESP 16; TEMP 36.6; O2SAT 93
[2024-04-20] MEDS: MELATONIN 3 MG TABLET PO (21:44)
[2024-04-21 05:47] LABS: Hematocrit 32.7 % (37-47); Hemoglobin 10.2 g/dL (12.0-15.0); Mean Corp Hgb Conc 31.2 g/dL (32-36); Mean Corpuscular Hgb 31.3 pg (27.0-32.0); Mean Corpuscular Volume 100.3 fL (81-99); Mean Platelet Vol. 10.6 fl (6.2-12.0); Platelet Count 324 K/mm3 (150-450); RBC Distribution Width CV 13.5 % (11.6-14.6); RBC Distribution Width SD 50.4 fl (35.1-43.9); Red Blood Count 3.26 M/mm3 (4.2-5.4); White Blood Count 7.6 K/mm3 (4.4-11.0)
[2024-04-21 05:53] VITALS: BMI 59.1
[2024-04-21 06:00] LABS: Anion Gap 5 (5-15); BUN 24 mg/dL (7-18); Calcium,Total 8.6 mg/dL (8.5-10.1); Chloride 105 mmol/L (98-107); EST Glomerular Filtration Rate 46 mL/min (>60); Est Glom Filt Rate - Afr Amer 56 mL/min (>60); Estimated Creatinine Clearance 58.35 ml/min; Glucose 98 mg/dL (74-106); Potassium 4.1 mmol/L (3.5-5.1); Sodium Level 137 mmol/L (136-145)
[2024-04-21] MEDS: Levothyroxine 100 MCG Tablet 200 MCG PO (06:36)
[2024-04-21] MEDS: Calcium Carbonate 500 MG Tablet PO (07:56)
[2024-04-21] MEDS: Aspirin E.C. 81 MG Tablet PO (07:56)
[2024-04-21] MEDS: Multivitamins,Ther W-Minerals Tablet 1 TABLET PO (07:56)
[2024-04-21] MEDS: FLU VACCINE **HIGH DOSE** TV 24-25 180 MCG/0.5 ML SYRINGE IM (08:00)
[2024-04-21] MEDS: Celecoxib 200 MG Capsule PO (08:00)
[2024-04-21] MEDS: Enoxaparin 40 MG/0.4 ML Syringe SC ×2 (08:00→21:45)
[2024-04-21] MEDS: DULoxetine Hcl 60 MG Capsule PO (08:00)
[2024-04-21 09:00] VITALS: BP 129/82; PULSE 74; RESP 16; TEMP 36.6; O2SAT 97
--- NOTE | 2024-04-21 09:31 | PCM.PN.HOSP ---
Reason for Visit Reason for Visit: Diagnoses Other forms of dyspnea (04/19/24) Subjective Subjective Pt denies any shortness of breath, still feels like legs are somewhat tight has no other new or acute complaints Objective Data Objective Data Vital Signs: Vital Signs Temp Pulse Resp BP Pulse Ox O2 Del Method FiO2 97.9 F 77 16 151/81 H 93 Room Air 21 04/20/24 20:40 04/20/24 20:40 04/20/24 20:40 04/20/24 20:40 04/20/24 20:40 04/21/24 08:22 04/21/24 01:50 Oxygen Delivery Method Room Air Weight: 157.1 kg Body Mass Index (BMI) 59.1 Intake & Output: Intake and Output for Last 24 Hours 04/19/24 04/20/24 04/21/24 23:59 23:59 23:59 Intake Total 740 / 740 580 / 930 350 / 350 Output Total 925 / 1375 850 / 850 Balance -185 / -635 -270 / 80 350 / 350 Lab / Micro Data 04/21/24 04:55 04/21/24 04:55 Labs: Laboratory Results - last 24 hr 04/21/24 04:55: WBC 7.6, RBC 3.26 L, Hgb 10.2 L, Hct 32.7 L, MCV 100.3 H, MCH 31.3, MCHC 31.2 L, RDW Std Deviation 50.4 H, RDW Coeff of Stephanie 13.5, Plt Count 324, MPV 10.6, Sodium 137, Potassium 4.1, Chloride 105, Carbon Dioxide 27.0, Anion Gap 5, BUN 24 H, Creatinine 1.20 H, Estim Creat Clear Calc 58.35, Est GFR (MDRD) Af Amer 56 L, Est GFR (MDRD) Non-Af 46 L, BUN/Creatinine Ratio 20.0, Glucose 98, Calcium 8.6 Micro: Microbiology 04/19/24 10:00 Nasal Secretion SARS-CoV-2 Antigen (Rapid) - Final 04/19/24 03:40 Mucosa - Nasopharyngeal Respiratory Panel (PCR) - Final Physical Exam Narrative General: Alert, oriented, no apparent distress HEENT: Atraumatic, normocephalic Eyes: Anicteric, normal conjunctiva, extraocular movements grossly intact Neck: Supple Respiratory: Somewhat diminished to the bases but suspect in part due to body habitus, normal respiratory effort Cardiovascular: Regular rate and rhythm GI: Soft, nontender, no rebound, guarding, rigidity Extremities: Does have bilateral lower extremity edema Musculoskeletal: Moving all extremities Neuro: No overt focal neurological deficits Skin: Does have some scattered erythema on lower extremities but does not appear cellulitic in nature, roughly unchanged from yesterday, suspect this will improve when lower extremity edema improves Psych: Cooperative Assessment & Plan Assessment/Plan (1) Dyspnea on exertion: PLAN: Plan #SOB and LE swelling with chronic lower extremity lymphedema and chronic venous insufficiency -Highly suspect this is multifactorial -Patient presented with 1 day of progressive dyspnea on exertion also felt her legs had increased swelling -BNP 180 and yesterday was 264 but back in 2021 it was 205 as we do not have a normal in our system -CTA chest due to elevated D-dimer obtained and negative for PE and otherwise no acute abnormalities -Chest x-ray reviewed, very difficult to tell if patient has component of fluid overload as this appears to be underpenetrated -Was found to have a TSH of 25, query if shortness of breath could be due to or exacerbated by undertreated hypothyroidism -Echo was ordered -Upon discussion with patient and daughter it was also reported the patient not always compliant with CPAP, could be component of underlying pulmonary hypertension which will hopefully be better evaluated by echo -CPAP nightly -She did receive one-time dose of IV Lasix in the ED, monitoring closely to see if additional -04/20: Patient does not feel she is having any problems with her breathing but does feel like legs are somewhat tight again today, will give another dose of IV Lasix, patient with EF of 60%, normal LV size, normal diastole for age, unable to assess PASP, structurally normal valves. Patient did appear somewhat peripherally overloaded however no evidence of heart failure on echocardiogram, largely may be due to her venous insufficiency and lymphedema and daughter reports she has been dangling her legs for period also difficulty with CPAP compliance and hypothyroid state have likely contributed to all of the above -04/21: Given workup overall negative aside from patient's hypothyroid state, suggest hypothyroidism has caused increased fluid retention leading to her worsened edema, this has responded to Lasix, will place patient temporarily on 20 of Lasix orally but ultimately may be able to discontinue this. Patient would benefit from placement, bed available at [facility] tomorrow, plan is to DC to [place] in stable condition # History of hypothyroidism -TSH 25.5 -Patient reports compliance with her levothyroxine however she takes it at the same time as her other medications so suspect that she is unable to absorb this causing a hypothyroid state -Discussed how to take levothyroxine and the importance of doing so, patient and daughter verbalized understanding -Will be given at 6 AM here for other medications to allow for absorption -04/20: Seems more awake and alert after changing timing of Synthroid -04/21: Will need outpatient thyroid function tests in 6 weeks Chronic medical problems: #Depression/anxiety -Continue home medications #Morbid obesity with history of gastric sleeve -BMI documented as 59.4 kg/m? at time of admission -Complicates treatment, prognosis, outcomes -Recommend weight loss and lifestyle changes # CKD stage III b -Appears to be at baseline -Avoid nephrotoxic agents -Daily BMPs -04/20: Creatinine remains unchanged, continue current management, repeat in the a.m. especially given patient is to receive another dose of IV Lasix #PAM -Continue nightly CPAP -04/20: Patient did wear CPAP last night, continue to encourage compliance Medical problems no longer actively being addressed: # Elevated D-dimer -Unclear etiology, patient negative for PE -Lower extremity Dopplers were ordered and were negative however study below the knee was limited -Given symptoms are bilateral and no large proximal clot seen suspect this is less likely, will switch to DVT prophylaxis -04/20: No underlying etiology identified, at this time we will continue present management and monitoring # Hypoxemia -Patient 88% with ambulation in the ED per report they do not see this documented vital signs -Again suspect this is multifactorial, see #1 -04/20: Could be secondary to body habitus, cannot rule out a component of pulmonary hypertension given this was not well-visualized on echocardiogram, will need walked to assess for O2 patient will be going home # Nausea -Reportedly patient gets migraines but no longer really feels the headache and will just feel generally unwell and usually nauseous, patient to trial rizatriptan, antiemetics as needed -If no improvement consider further workup -04/20: Resolved #DVT ppx: Lovenox subcu Natalia Robison MD Charges/Coding Visit Charges Inpatient E&M: 84925 Subs Hosp L1
[2024-04-21 13:16] VITALS: O2SAT 94
[2024-04-21 15:00] VITALS: BP 127/69; PULSE 77; RESP 16; TEMP 37.2; O2SAT 94
[2024-04-21] MEDS: Furosemide 20 MG Tablet PO (16:34)
[2024-04-21 21:42] VITALS: BP 111/60; PULSE 67; RESP 18; TEMP 37.1; O2SAT 95
[2024-04-22 03:22] VITALS: BP 116/60; PULSE 83; RESP 18; TEMP 36.9; O2SAT 95
[2024-04-22 04:03] VITALS: BMI 58.6
[2024-04-22] MEDS: Levothyroxine 100 MCG Tablet 200 MCG PO (05:55)
[2024-04-22 06:14] LABS: Hematocrit 32.8 % (37-47); Hemoglobin 10.4 g/dL (12.0-15.0); Mean Corp Hgb Conc 31.7 g/dL (32-36); Mean Corpuscular Hgb 31.5 pg (27.0-32.0); Mean Corpuscular Volume 99.4 fL (81-99); Mean Platelet Vol. 9.9 fl (6.2-12.0); Platelet Count 314 K/mm3 (150-450); RBC Distribution Width CV 13.6 % (11.6-14.6); White Blood Count 7.8 K/mm3 (4.4-11.0)
[2024-04-22 06:40] LABS: Anion Gap 7 (5-15); BUN 22 mg/dL (7-18); Calcium,Total 8.4 mg/dL (8.5-10.1); Chloride 105 mmol/L (98-107); EST Glomerular Filtration Rate 51 mL/min (>60); Est Glom Filt Rate - Afr Amer 62 mL/min (>60); Estimated Creatinine Clearance 63.31 ml/min; Glucose 91 mg/dL (74-106); Sodium Level 138 mmol/L (136-145)
[2024-04-22 09:20] VITALS: BP 102/73; PULSE 68; RESP 18; TEMP 36.9; O2SAT 93
[2024-04-22] MEDS: Aspirin E.C. 81 MG Tablet PO (09:28)
[2024-04-22] MEDS: Ergocalciferol 1.25 MG (50, 000 UNIT) Capsule PO (09:28)
[2024-04-22] MEDS: Furosemide 20 MG Tablet PO (09:28)
[2024-04-22] MEDS: Enoxaparin 40 MG/0.4 ML Syringe SC (09:29)
[2024-04-22] MEDS: DULoxetine Hcl 60 MG Capsule PO (09:29)
[2024-04-22] MEDS: Celecoxib 200 MG Capsule PO (09:29)
[2024-04-22] MEDS: Multivitamins,Ther W-Minerals Tablet 1 TABLET PO (09:29)
[2024-04-22] MEDS: Calcium Carbonate 500 MG Tablet PO (09:29)
[2024-04-22] MEDS: Cephalexin 500 MG Capsule PO (11:54)
--- NOTE | 2024-04-22 13:07 | TREXTCAR_ITS ---
Diet Diet Order/Speech Therapy: 04/19/24 15:37 Diet: Cardiac: Calorie-Controlled Food consistency:: Regular Liquid Consistency:: Regular/Thin Type of Dietary Supplement:: [place] Breakfast Diet Comments: [place] with dinner- chocolate How many daily calories?: 1800 calorie Routine Orders/Code Status Suppository Type: Dulcolax 10mg Suppository Frequency: Daily PRN Routine Lab Work: BMP (1 week) DC O2, CPAP, BIPAP needs PSN CPAP & BiPAP: BiPAP & CPAP Settings per PSN Mode CPAP 04/22/24 02:59 Bipap Delivery Device Nasal Pillows 04/22/24 02:59 BiPAP Expiratory Pressure 10 04/22/24 02:59 Fraction of Inspired Oxygen ( 04/22/24 02:59 FIO2) Additional Home O2 Discharge instructions: No Therapies Physical Therapy: Eval and Treat Occupational Therapy: Eval and Treat Problem/Diagnosis (1) Dyspnea on exertion: Status: Acute Code(s): R06.09 - Other forms of dyspnea Plan # Hypothyroidism with hypothyroid state #LE swelling 2/2 fluid retention w/ hypothyroidism on top of chronic lower extremity lymphedema and chronic venous insufficiency # Bilateral lower extremity cellulitis #Depression/anxiety #Morbid obesity with history of gastric sleeve 78F admitted 04/19/2024 with increased lower extremity swelling and some shortness of breath # CKD stage III b #PAM # Elevated D-dimer- no PE or DVT #Hypoxemia 2/2 fluid retention for hypothyroidism- resolved #Migraine headaches 70-year-old female history of hypothyroidism, morbid obesity, lower extremity lymphedema and chronic venous insufficiency, anxiety and depression, migraine headaches, PAM on CPAP, CKD who presented [facility] ED 04/19/2024 with increased lower extremity swelling and possibly some shortness of breath. Daughter reported they brought her in mostly for the increasing lower extremity edema that was worsening over time but she was also noted to be 88% on room air when she ambulated and then did not endorse some possible gradual onset of worsening dyspnea on exertion over time gradually. In the ED she had a D-dimer of 2.53 but negative CTA and negative lower extremity dup lexes. BNP was 264 though she has persistently elevated BNP's and CT did not show any acute process. Patient had echo with normal diastole for age, normal LV size, EF of 60% no regional wall motion abnormalities. She was noted to have a TSH of 25 and while she was taking medication she was taking it with her other medications so it seems that she has a problem with absorption. No other abnormalities or etiologies that would account for her increased lower extremity swelling or shortness of breath, she was given Lasix with some relief. High suspicion that patient was retaining fluid due to her hypothyroid state which led to increased lower extremity edema on top of her chronic venous insufficiency and lymphedema. If so would suspect this would all begin to improve as thyroid function improves. On day of discharge patient overall feeling better. Does have a couple areas that almost appear more cellulitic today and just erythematous due to swelling so patient agreeable to be started on antibiotic (Keflex) and has no systemic signs or symptoms of infection that would warrant continued inpatient hospitalization. Still some swelling in lower extremities however this does not warrant further inpatient admission and can be further adjusted and managed on outpatient basis. Discharge instructions as followed: DISCHARGE INSTRUCTIONS PLEASE READ *Please take this with you to your next doctors appointment* -You will be discharged on 20 mg of oral Lasix every other day for 1 week. At that time you will need your legs assessed and a BMP to assess your potassium and kidney function and your physician can make further determinations on the necessity of Lasix moving forward as it seems you are likely retaining fluid due to your hypothyroid state and this should improve with control of your thyroid -Take levothyroxine on an empty stomach with 1 cup of water (250ml) at least four hours after eating. Then wait minutes before consuming any other food or beverage, especially coffee. This medicine will work best if you take it about at the same time every day. Separate levothyroxine from vitamins and antacids or medicines with calcium or iron by at least 4 hours before and after taking this medicine. Stop taking any biotin supplement 4 days prior to having labs drawn. It is important you keep taking each dose of this medicine on time even if you are feeling well. If you forget to take a dose on time, take in as soon as you remember unless it is almost time for the next dose and return to your normal schedule. Do not take two doses at one time. -You will need repeat thyroid studies in 4 to 6 weeks -You will be discharged on 7 days of Keflex, course could need to be extended if lower extremity cellulitis response slowly -Please call your primary care provider's office upon discharge to schedule a hospital follow up within 1 week. -For any concerning signs or symptoms please call 911 or proceed to the nearest emergency department Allergies/Procedures Done in Hospital Allergies No Known Allergies Allergy (Verified 04/18/24 17:26) Type of Care/Length of Stay Estimated LOS: Convalescent Care Less Than 30 days Type of Care Needed: Skilled Rehab Potential: Fair Prognosis: Fair Additional Orders/Day of Discharge Day of Discharge: 04/22/24 Dietary and Speech Recommendations Dietitian Recommendations/Changes: Adjust to 1800 calorie controlled, cardiac diet. Will order chocolate carination breakfast with dinner, per pt request. Pt would benefit from seeing outpatient RD for help with weight loss. Will monitor weight, as available. Reviewed and approved by Chasidy Concepcion RDN, JUAN A. Discharge Plan Admission Admit Date/Time: 04/19/24 12:17 Primary Reason for Your Visit: Swelling in legs Attending Provider: Natalia Robison Primary Care Provider: Calista Yeh Consulting Providers: Dharmesh Delgado Instructions Patient Instructions: Levothyroxine Oral Tablet Additional Instructions / Restrictions: DISCHARGE INSTRUCTIONS PLEASE READ *Please take this with you to your next doctors appointment* -You will be discharged on 20 mg of oral Lasix every other day for 1 week. At that time you will need your legs assessed and a BMP to assess your potassium and kidney function and your physician can make further determinations on the necessity of Lasix moving forward as it seems you are likely retaining fluid due to your hypothyroid state and this should improve with control of your thyroid -Take levothyroxine on an empty stomach with 1 cup of water (250ml) at least four hours after eating. Then wait minutes before consuming any other food or beverage, especially coffee. This medicine will work best if you take it about at the same time every day. Separate levothyroxine from vitamins and antacids or medicines with calcium or iron by at least 4 hours before and after taking this medicine. Stop taking any biotin supplement 4 days prior to having labs drawn. It is important you keep taking each dose of this medicine on time even if you are feeling well. If you forget to take a dose on time, take in as soon as you remember unless it is almost time for the next dose and return to your normal sc hedule. Do not take two doses at one time. -You will need repeat thyroid studies in 4 to 6 weeks -You will be discharged on 7 days of Keflex, course could need to be extended if lower extremity cellulitis response slowly -Please call your primary care provider's office upon discharge to schedule a hospital follow up within 1 week. -For any concerning signs or symptoms please call 911 or proceed to the nearest emergency department Discharge Orders/Prescriptions Prescriptions: New furosemide 20 mg Tablet 20 mg PO QODAY 7 Days Qty: 4 0RF cephalexin 500 mg Capsule 500 mg PO Q6 7 Days Qty: 0 0RF Continued duloxetine [Cymbalta] 60 mg capsule,delayed release(DR/EC) 60 mg PO DAILY aspirin [Adult Low Dose Aspirin] 81 mg tablet,delayed release (DR/EC) 81 mg PO DAILY Centrum Silver 0.4 mg-300 mcg- 250 mcg tablet 1 tab PO DAILY acetaminophen 500 mg tablet 1,000 mg PO TID PRN (Reason: fever or pain) calcium carbonate [Antacid (calcium carbonate)] 200 mg calcium (500 mg) tablet,chewable 400 mg PO DAILY celecoxib [Celebrex] 200 mg capsule 200 mg PO DAILY (DME) juxta lite See Rx Instructions .Route .MEDSUPPLY Qty: 2 3RF Rx Instructions: 20 -30 mmHg semaglutide (weight loss) 0.25 mg/0.5 mL pen injector 0.25 mg subcut QWEEK Qty: 2 0RF Rx Instructions: administer weeks 1 through 4 of therapy (DME) arm brace Misc See Rx Instructions .Route Qty: 1 0RF Rx Instructions: left wrist brace, wear at night (DME) arm brace Misc See Rx Instructions .Route Qty: 1 0RF Rx Instructions: Right wrist brace, wear at night ergocalciferol (vitamin D2) 1,250 mcg (50,000 unit) capsule 1,250 mcg PO QWEEK Qty: 20 1RF sumatriptan succinate [Imitrex] 25 mg tablet See Rx Instructions PO .COMPLEX Qty: 14 1RF Rx Instructions: take 1 tab at onset of headache; if no relief may repeat 1 tab after at least 2 hrs; max = 4 tabs/24 hr PO alendronate 70 mg tablet 70 mg PO QWEEK Qty: 14 1RF levothyroxine [Synthroid] 200 mcg tablet 200 mcg PO DAILY Qty: 14 0RF Rx Instructions: Take 200 mcg daily on 6 days and 300 mcg on 1 day Referrals / Follow Up: Calista Yeh MD [Primary Care Provider] - Disposition Disposition (needs filled in before D/C Order can be placed): [facility]
--- NOTE | 2024-04-22 13:09 | PCM.DC.SUM ---
Providers Date of Admission: 04/19/24 Date of Discharge: 04/22/24 Primary Care Physician: Dr. 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 Routine Comment: Reason for Consult:: bilateral lower extremity wounds Reason For Visit: Lower extremity edema Diagnosis Discharge Diagnosis (1) Dyspnea on exertion: Status: Acute Code(s): R06.09 - Other forms of dyspnea Plan # Hypothyroidism with hypothyroid state #LE swelling 2/2 fluid retention w/ hypothyroidism on top of chronic lower extremity lymphedema and chronic venous insufficiency # Bilateral lower extremity cellulitis #Depression/anxiety #Morbid obesity with history of gastric sleeve 78F admitted 04/19/2024 with increased lower extremity swelling and some shortness of breath # CKD stage III b #PAM # Elevated D-dimer- no PE or DVT #Hypoxemia 2/2 fluid retention for hypothyroidism- resolved #Migraine headaches Medications at Discharge Home Medications aspirin 81 mg tablet,delayed release (Adult Low Dose Aspirin) 81 mg PO DAILY 10/06/21 duloxetine 60 mg capsule,delayed release (Cymbalta) 60 mg PO DAILY 10/06/21 lalhihew-wgh-kfauk acid 0.4 mg-lycopene 300 mcg-lutein 250 mcg tablet (Centrum Silver) 1 tab PO DAILY 10/06/21 acetaminophen 500 mg tablet 1,000 mg PO TID PRN fever or pain 10/23/21 celecoxib 200 mg capsule (Celebrex) 200 mg PO DAILY pain 02/23/23 calcium carbonate (Antacid (calcium carbonate)) 400 mg PO DAILY 04/01/23 juxta lite #2 ea 04/01/23 arm brace #1 ea 04/13/23 arm brace #1 ea 04/15/23 ergocalciferol (vitamin D2) 1,250 mcg (50,000 unit) capsule 1,250 mcg PO QWEEK #20 caps 09/20/23 semaglutide (weight loss) 0.25 mg/0.5 mL subcutaneous pen injector 0.25 mg (0.5 mL) subcut QWEEK #2 mL 12/07/23 sumatriptan succinate 25 mg tablet (Imitrex) See Rx Instructions PO .COMPLEX #14 tabs 02/02/24 alendronate 70 mg tablet 70 mg PO QWEEK #14 tabs 02/28/24 levothyroxine 200 mcg tablet (Synthroid) 200 mcg PO DAILY #14 tabs 04/18/24 cephalexin 500 mg capsule 500 mg PO Q6 7 days #0 caps 04/22/24 furosemide 20 mg tablet 20 mg PO QODAY 7 days #4 tabs 04/22/24 Hospital Course Summary of Care Provided Minutes Spent on Discharge: 33 Hospital Course: 70-year-old female history of hypothyroidism, morbid obesity, lower extremity lymphedema and chronic venous insufficiency, anxiety and depression, migraine headaches, PAM on CPAP, CKD who presented [facility] [place] ED 04/19/2024 with increased lower extremity swelling and possibly some shortness of breath. Daughter reported they brought her in mostly for the increasing lower extremity edema that was worsening over time but she was also noted to be 88% on room air when she ambulated and then did not endorse some possible gradual onset of worsening dyspnea on exertion over time gradually. In the ED she had a D-dimer of 2.53 but negative CTA and negative lower extremity duplexes. BNP was 264 though she has persistently elevated BNP's and CT did not show any acute process. Patient had echo with normal diastole for age, normal LV size, EF of 60% no regional wall motion abnormalities. She was noted to have a TSH of 25 and while she was taking medication she was taking it with her other medications so it seems that she has a problem with absorption. No other abnormalities or etiologies that would account for her increased lower extremity swelling or shortness of breath, she was given Lasix with some relief. High suspicion that patient was retaining fluid due to her hypothyroid state which led to increased lower extremity edema on top of her chronic venous insufficiency and lymphedema. If so would suspect this would all begin to improve as thyroid function improves. On day of discharge patient overall feeling better. Does have a couple areas that almost appear more cellulitic today and just erythematous due to swelling so patient agreeable to be started on antibiotic (Keflex) and has no systemic signs or symptoms of infection that would warrant continued inpatient hospitalization. Still some swelling in lower extremities however this does not warrant further inpatient admission and can be further adjusted and managed on outpatient basis. Discharge instructions as followed: DISCHARGE INSTRUCTIONS PLEASE READ *Please take this with you to your next doctors appointment* -You will be discharged on 20 mg of oral Lasix every other day for 1 week. At that time you will need your legs assessed and a BMP to assess your potassium and kidney function and your physician can make further determinations on the necessity of Lasix moving forward as it seems you are likely retaining fluid due to your hypothyroid state and this should improve with control of your thyroid -Take levothyroxine on an empty stomach with 1 cup of water (250ml) at least four hours after eating. Then wait minutes before consuming any other food or beverage, especially coffee. This medicine will work best if you take it about at the same time every day. Separate levothyroxine from vitamins and antacids or medicines with calcium or iron by at least 4 hours before and after taking this medicine. Stop taking any biotin supplement 4 days prior to having labs drawn. It is important you keep taking each dose of this medicine on time even if you are feeling well. If you forget to take a dose on time, take in as soon as you remember unless it is almost time for the next dose and return to your normal schedule. Do not take two doses at one time. -You will need repeat thyroid studies in 4 to 6 weeks -You will be discharged on 7 days of Keflex, course could need to be extended if lower extremity cellulitis response slowly -Please call your primary care provider's office upon discharge to schedule a hospital follow up within 1 week. -For any concerning signs or symptoms please call 911 or proceed to the nearest emergency department Physical Exam Narrative General: Alert, oriented, no apparent distress, sitting up in chair HEENT: Atraumatic, normocephalic Eyes: Anicteric, normal conjunctiva, extraocular movements grossly intact Neck: Supple Respiratory: Somewhat diminished to the bases but suspect in part due to body habitus, normal respiratory effort Cardiovascular: Regular rate and rhythm GI: Soft, nontender, no rebound, guarding, rigidity Extremities: Does have bilateral lower extremity edema, slightly better than yesterday Musculoskeletal: Moving all extremities Neuro: No overt focal neurological deficits Skin: Does have some scattered erythema on lower extremities, does appear slightly more cellulitic in nature today but no purulent drainage or focal abscess that would necessitate MRSA coverage Psych: Cooperative Weight / BMI Weight Weight: 155.8 kg Body Mass Index (BMI) 58.6 ABG / Lab / Microbiology Data 04/22/24 05:53 04/22/24 05:53 Laboratory: Laboratory Results - last 24 hr 04/22/24 05:53: WBC 7.8, RBC 3.30 L, Hgb 10.4 L, Hct 32.8 L, MCV 99.4 H, MCH 31.5, MCHC 31.7 L, RDW Std Deviation 50.0 H, RDW Coeff of Stephanie 13.6, Plt Count 314, MPV 9.9, Sodium 138, Potassium 4.0, Chloride 105, Carbon Dioxide 26.0, Anion Gap 7, BUN 22 H, Creatinine 1.10 H, Estim Creat Clear Calc 63.31, Est GFR (MDRD) Af Amer 62, Est GFR (MDRD) Non-Af 51 L, BUN/Creatinine Ratio 20.0, Glucose 91, Calcium 8.4 L Microbiology: Microbiology 04/19/24 10:00 Nasal Secretion SARS-CoV-2 Antigen (Rapid) - Final 04/19/24 03:40 Mucosa - Nasopharyngeal Respiratory Panel (PCR) - Final D/C Instructions DC O2, CPAP, BIPAP Needs PSN CPAP & BiPAP: BiPAP & CPAP Settings per PSN Mode CPAP 04/22/24 02:59 Bipap Delivery Device Nasal Pillows 04/22/24 02:59 BiPAP Expiratory Pressure 10 04/22/24 02:59 Fraction of Inspired Oxygen ( 04/22/24 02:59 FIO2) Additional Home O2 Discharge instructions: No DC home with Oxygen: No Meaningful Use Info Meaningful Use Meaningful Use Diagnoses (Choose all that apply): None applicable Ischemic Stroke Statin Dosing Therapy Reference: STATIN DOSE THERAPY REFERENCE: * Patients > 75 years receive moderate or high dose statin therapy. * Patients 75 years or YOUNGER should receive HIGH intensity statin dose unless contraindicated. You will be required to document reason for non-treatment if statin daily dose does not meet guidelines. HIGH DOSE STATIN THERAPY DAILY Atorvastatin > than or = to 40 mg Rosuvastatin > than or = to 20 mg Amlodipine + Atorvastatin > than or = to 2.5/40 mg Ezetimibe + Simvastatin 10/80 mg Simvastatin 80mg Discharge Plan Admission Admit Date/Time: 04/19/24 12:17 Primary Reason for Your Visit: Swelling in legs Attending Provider: Natalia Robison Primary Care Provider: Calista Yeh Consulting Providers: Dharmesh Delgado Instructions Patient Instructions: Levothyroxine Oral Tablet Additional Instructions / Restrictions: DISCHARGE INSTRUCTIONS PLEASE READ *Please take this with you to your next doctors appointment* -You will be discharged on 20 mg of oral Lasix every other day for 1 week. At that time you will need your legs assessed and a BMP to assess your potassium and kidney function and your physician can make further determinations on the necessity of Lasix moving forward as it seems you are likely retaining fluid due to your hypothyroid state and this should improve with control of your thyroid -Take levothyroxine on an empty stomach with 1 cup of water (250ml) at least four hours after eating. Then wait minutes before consuming any other food or beverage, especially coffee. This medicine will work best if you take it about at the same time every day. Separate levothyroxine from vitamins and antacids or medicines with calcium or iron by at least 4 hours before and after taking this medicine. Stop taking any biotin supplement 4 days prior to having labs drawn. It is important you keep taking each dose of this medicine on time even if you are feeling well. If you forget to take a dose on time, take in as soon as you remember unless it is almost time for the next dose and return to your normal schedule. Do not take two doses at one time. -You will need repeat thyroid studies in 4 to 6 weeks -You will be discharged on 7 days of Keflex, course could need to be extended if lower extremity cellulitis response slowly -Please call your primary care provider's office upon discharge to schedule a hospital follow up within 1 week. -For any concerning signs or symptoms please call 911 or proceed to the nearest emergency department Discharge Orders/Prescriptions Prescriptions: New furosemide 20 mg Tablet 20 mg PO QODAY 7 Days Qty: 4 0RF cephalexin 500 mg Capsule 500 mg PO Q6 7 Days Qty: 0 0RF Continued duloxetine [Cymbalta] 60 mg capsule,delayed release(DR/EC) 60 mg PO DAILY aspirin [Adult Low Dose Aspirin] 81 mg tablet,delayed release (DR/EC) 81 mg PO DAILY Centrum Silver 0.4 mg-300 mcg- 250 mcg tablet 1 tab PO DAILY acetaminophen 500 mg tablet 1,000 mg PO TID PRN (Reason: fever or pain) calcium carbonate [Antacid (calcium carbonate)] 200 mg calcium (500 mg) tablet,chewable 400 mg PO DAILY celecoxib [Celebrex] 200 mg capsule 200 mg PO DAILY (DME) juxta lite See Rx Instructions .Route .MEDSUPPLY Qty: 2 3RF Rx Instructions: 20 -30 mmHg semaglutide (weight loss) 0.25 mg/0.5 mL pen injector 0.25 mg subcut QWEEK Qty: 2 0RF Rx Instructions: administer weeks 1 through 4 of therapy (DME) arm brace Misc See Rx Instructions .Route Qty: 1 0RF Rx Instructions: left wrist brace, wear at night (DME) arm brace Misc See Rx Instructions .Route Qty: 1 0RF Rx Instructions: Right wrist brace, wear at night ergocalciferol (vitamin D2) 1,250 mcg (50,000 unit) capsule 1,250 mcg PO QWEEK Qty: 20 1RF sumatriptan succinate [Imitrex] 25 mg tablet See Rx Instructions PO .COMPLEX Qty: 14 1RF Rx Instructions: take 1 tab at onset of headache; if no relief may repeat 1 tab after at least 2 hrs; max = 4 tabs/24 hr PO alendronate 70 mg tablet 70 mg PO QWEEK Qty: 14 1RF levothyroxine [Synthroid] 200 mcg tablet 200 mcg PO DAILY Qty: 14 0RF Rx Instructions: Take 200 mcg daily on 6 days and 300 mcg on 1 day Referrals / Follow Up: Calista Yeh MD [Primary Care Provider] - Disposition Disposition (needs filled in before D/C Order can be placed): [facility] Facility Charges/Coding Visit Charges Inpatient E&M: 37148 Disch Hosp >30min
--- NOTE | 2024-04-22 13:15 | NURSING ---
I spoke to to let her know the pt will be d/c today to [facility] and that her transport is scheduled for 1600. I also faxed over all the paperwork.
[2024-04-22 13:34] VITALS: BP 102/73; PULSE 68; RESP 18; TEMP 36.9; O2SAT 93
--- NOTE | 2024-04-22 14:29 | NURSING ---
Report called to nurse Odom for pt to be d/c to [facility].
== END 2024-04-22 15:53 | disposition skilled nursing facility (03) | DRG 300 ==
LOC: ED 04-19 00:38 → PCU 04-19 01:03
PROVIDERS: Admitting Provider Internal Medicine; Emergency Provider Emergency Medicine; PCP Internal Medicine; Referring Provider Emergency Medicine; Visit Provider Internal Medicine
DX: I87.2 Venous insufficiency (chronic) (peripheral) (principal); Z68.44 Body mass index [BMI] 60.0-69.9, adult; L03.115 Cellulitis of right lower limb; L03.116 Cellulitis of left lower limb; N18.32 Chronic kidney disease, stage 3b; E03.9 Hypothyroidism, unspecified; F32.A Depression, unspecified; G47.33 Obstructive sleep apnea (adult) (pediatric); E66.01 Morbid (severe) obesity due to excess calories; K44.9 Diaphragmatic hernia without obstruction or gangrene; F41.9 Anxiety disorder, unspecified; M81.0 Age-related osteoporosis without current pathological fracture; Z79.82 Long term (current) use of aspirin; Z79.899 Other long term (current) drug therapy
CPT/HCPCS: 36415; 71046; 71275; 80048; 80053; 82607; 82746; 83036; 83735; 83880; 84100; 84443; 84484; 85025; 85027; 85379; 85610; 85730; 87633; 87811; 90662; 93005; 93306; 93970; 94660; 94668; 97110; 97162; 97166; 97530; 97535; 97802; 99285; Q9957; Q9967; A4216; C8929; J1940; J2405

== ENCOUNTER 2024-08-08 06:27 | Inpatient (IN) | payer MEDICARE, OTHER, SELFPAY ==
[2024-08-08] VITALS (13 sets, daily range): BP systolic 107–162; BP diastolic 45–85; PULSE 57–125; RESP 16–20; TEMP 36.6–36.8; O2SAT 92–100; BMI 54.6; BMI 53.5
--- NOTE | 2024-08-08 06:50 | RAD_ITS ---
PROCEDURE: CHEST 1 VIEW (PORTABLE) REASON FOR EXAM: COUGH TECHNIQUE: Frontal view of the chest. COMPARISON: Chest x-ray dated 1945. FINDINGS: The cardiac silhouette is enlarged. There is mild vascular congestion noted throughout. Airspace opacity seen at the left lung base partially obscuring the contour of the left hemidiaphragm which may represent any combination of effusion/atelectasis and/or pneumonia. Follow-up until clearing is recommended. There is no pneumothorax. Degenerative changes seen within the bilateral shoulders. Postsurgical changes seen within the right shoulder. RAD/Chest 1 View (Portable) IMPRESSION: As above. Reading Location: [id number]
--- NOTE | 2024-08-08 06:50 | EKG12_ITS ---
Test Reason : DYSP Blood Pressure : */* mmHG Vent. Rate : 133 BPM Atrial Rate : * BPM P-R Int : * ms QRS Dur : 74 ms QT Int : 318 ms P-R-T Axes : * 24 53 degrees QTcB Int : 473 ms Atrial fibrillation with rapid ventricular response with premature ventricular or aberrantly conducted complexes Abnormal ECG Confirmed by DEDE COWART, PARVIN ([id number]), online editor ARTURO LOCKHART ([id number]) on 08/13/2024 11:10:36 AM Referred By: DOTTIE Confirmed By: PARVIN AGUAYO MD
[2024-08-08] MEDS: Ipratropium/Albuterol Sulfate 3 ML AMPUL.NEB INHALATION (07:06)
[2024-08-08] MEDS: Ondansetron 4 MG/2 ML Vial IV (07:06)
[2024-08-08] MEDS: Morphine 4 MG/ML Syringe IV (07:06)
[2024-08-08] MEDS: MethylPREDNISolone 125 MG/2 ML Vial IV (07:06)
[2024-08-08 07:17] LABS: Absolute Lymphocyte Count 1.61 X10^3/uL (0.83-4.51); Absolute Neutrophil Count 11.4 X10^3/uL (2.0-7.7); Basophil# 0.07 X10^3/uL; Basophil% 0.5 % (0-1); Eosinophil# 0.22 X10^3/uL; Eosinophils% 1.5 % (0-5); Hematocrit 36.9 % (37-47); Hemoglobin 11.9 g/dL (12.0-15.0); Lymphocyte # 1.61 X10^3/ul (0.83-4.51); Lymphocyte % 10.7 % (19-41); Mean Corp Hgb Conc 32.2 g/dL (32-36); Mean Corpuscular Hgb 31.5 pg (27.0-32.0); Mean Corpuscular Volume 97.6 fL (81-99); Mean Platelet Vol. 10.2 fl (6.2-12.0); Monocyte# 1.68 X10^3/uL; Monocyte% 11.2 % (0-10); NRBC Flagged by Analyzer 0 % (0-5); Neutrophil # 11.35 X10^3/uL (2.7-7.7); Neutrophil % 75.6 % (47-70); POSITIVE DIFFERENTIAL YES; Platelet Count 342 K/mm3 (150-450); RBC Distribution Width CV 13.5 % (11.6-14.6); RBC Distribution Width SD 48.7 fl (35.1-43.9); Red Blood Count 3.78 M/mm3 (4.2-5.4)
--- NOTE | 2024-08-08 07:19 | CT_ITS ---
EXAM: CT Angiography Chest Without and With Intravenous Contrast CLINICAL INDICATION: DYSPNEA WITH NEW ONSET AFIB TECHNIQUE: Axial computed tomographic angiography images of the chest without and with intravenous contrast. This CT exam was performed using one or more of the following dose reduction techniques: automated exposure control, adjustment of the mA and/or kV according to patient size, and/or use of iterative reconstruction technique. MIP reconstructed images were created and reviewed. COMPARISON: No relevant prior studies available. FINDINGS: LIMITATIONS: Suboptimal opacification of the pulmonary arteries. PULMONARY ARTERIES: No pulmonary embolism is identified. Some of the distal pulmonary arteries cannot be evaluated due to suboptimal opacification. AORTA: No acute findings. No thoracic aortic aneurysm. LUNGS AND PLEURAL SPACES: Dependent atelectasis. No mass. No significant effusion. No pneumothorax. HEART: Unremarkable. No cardiomegaly. No significant pericardial effusion. No evidence of RV dysfunction. MEDIASTINUM: Small esophageal hiatal hernia. BONES/JOINTS: No acute fracture. No dislocation. SOFT TISSUES: Unremarkable. LYMPH NODES: Unremarkable. No enlarged lymph nodes. CT/CTA Chest W/WO Contrast IMPRESSION: 1. No pulmonary embolism is identified. Some of the distal pulmonary arteries cannot be evaluated due to suboptimal opacification. 2. Small esophageal hiatal hernia. Reading [facility]
[2024-08-08] MEDS: dilTIAZem 25 MG/5 ML Vial 20 MG IV BOLUS (07:33)
[2024-08-08 08:03] LABS: Anion Gap 11 (5-15); BUN 18 mg/dL (4-19); BUN/Creat Ratio 14.6 RATIO (10-20); Calcium,Total 9.2 mg/dL (7.6-11.0); Carbon Dioxide 23.1 mmol/L (21.0-32.0); Chloride 103 mmol/L (98-108); EST Glomerular Filtration Rate 46 (>60); Estimated Creatinine Clearance 54.33 ml/min (50-250); Glucose 115 mg/dL (70-99); Magnesium 2.2 mg/dL (1.5-2.2); Potassium 4.4 mmol/L (3.3-5.1); Sodium Level 137 mmol/L (133-145)
[2024-08-08 08:08] LABS: Differential Indicated SCAN CRITERIA MET
[2024-08-08 08:10] LABS: Pathologist Review May foll
--- NOTE | 2024-08-08 08:32 | EKG12_ITS ---
Test Reason : PALP Blood Pressure : */* mmHG Vent. Rate : 77 BPM Atrial Rate : 77 BPM P-R Int : 138 ms QRS Dur : 80 ms QT Int : 402 ms P-R-T Axes : 70 24 77 degrees QTcB Int : 454 ms Sinus rhythm with marked sinus arrhythmia Otherwise normal ECG Confirmed by DEDE COWART, PARVIN ([id number]), continuity editor ARTURO LOCKHART ([id number]) on 08/13/2024 11:10:53 AM Referred By: DOTTIE Confirmed By: PARVIN AGUAYO MD
[2024-08-08 08:33] LABS: Thyroid Stim Hormone (TSH) 0.287 uIU/mL (0.300-4.200)
--- NOTE | 2024-08-08 09:02 | EDS_ITS ---
HPI History of Present Illness Chief Complaint: Cough Informant: patient and family Narrative Narrative: Patient is a 79-year-old female who lives with her daughter with past medical history of hypothyroidism morbid obesity and anxiety and depression. Daughter states that she was sick with cough for approximately 4 weeks and did not have COVID influenza RSV or pneumonia. She states her symptoms recently resolved but over the past week or so that her mother has now been complaining of cough and congestion and shortness of breath. They state they did at home COVID test which was negative. She reports that she consistently complains of pain in the right shoulder and that has been no recent trauma but with the increased cough she has said there is more tenderness at that area. Daughter has concern that she may have COVID or influenza or a potential pneumonia which is contributing to her shortness of breath sensation and generalized weakness. Patient states that she is having difficulty getting around the house secondary to the myalgias shortness of breath sensation and generalized fatigue and therefore with potential infection she was brought in for evaluation [facility] Medical History Generalized weakness Dyspnea on exertion Anxiety and depression Incontinence Debility Chronic left shoulder pain Osteoporosis Multiple premature ventricular complexes Venous insufficiency of both lower extremities ADD (attention deficit disorder) Chronic back pain Obesity Anemia Shoulder pain with history of repair of rotator cuff Tibial plateau fracture, left Keloid of skin Ptosis of both eyelids History of fracture due to fall Fracture of left upper limb History of tibial fracture Vitamin B 12 deficiency Iron deficiency anemia Other specified disorders of bone density and structure, unspecified site Allergic rhinitis ADHD History of fractured kneecap Uses hearing aid Hearing impairment History of migraine headaches Home Medications ?Medication ?Instructions ?Recorded ?Last Taken ?Type aspirin 81 mg tablet,delayed 81 mg PO DAILY 10/06/21 1 06/18/23 History release (Adult Low Dose Aspirin) duloxetine 60 mg capsule,delayed 60 mg PO DAILY 04/18/24 History release (Cymbalta) [id number] acid 0.4 1 tab PO DAILY 10/06/21 History mg-lycopene 300 mcg-lutein 250 mcg tablet (Centrum Silver) acetaminophen 500 mg tablet 1,000 mg PO TID PRN fever or pain 10/23/21 04/18/24 History celecoxib 200 mg capsule (Celebrex) 200 mg PO DAILY pa in 02/23/23 04/18/24 History calcium carbonate (Antacid 400 mg PO DAILY 04/01/23 History (calcium carbonate)) juxta lite #2 ea 04/01/23 Unknown Rx arm brace #1 ea 04/13/23 Unknown Rx arm brace #1 ea 04/15/23 Unknown Rx semaglutide (weight loss) 0.25 0.25 mg (0.5 mL) subcut QWEEK #2 mL 12/07/23 Unknown Rx mg/0.5 mL subcutaneous pen injector sumatriptan succinate 25 mg tablet See Rx Instructions PO .COMPLEX 02/02/24 Unknown Rx (Imitrex) #14 tabs cephalexin 500 mg capsule 500 mg PO Q6 7 days #0 caps 04/22/24 Unknown Rx furosemide 20 mg tablet 20 mg PO QODAY 7 days #4 tab s 04/22/24 Unknown Rx levothyroxine 200 mcg tablet 200 mcg PO DAILY #120 tab s 06/18/24 Unknown Rx (Synthroid) alendronate 70 mg tablet 70 mg PO QWEEK #14 tabs 07/28 0 Unknown Rx ergocalciferol (vitamin D2) 1,250 1,250 mcg PO QWEEK # 20 caps 08/06/24 Unknown Rx mcg (50,000 unit) capsule Allergy/AdvReac Type Severity Reaction Status Date / Time No Known Allergies Allergy Verified 08/08/24 06:33 Family History Father Sudden cardiac , Onset Age: 59 Alcoholism Mother Type II diabetes mellitus Lymphoma Arthritis Brother Sudden cardiac , Onset Age: 49 Grandmother Type II diabetes mellitus Grandmother Type II diabetes mellitus Surgical History Hx of cholecystectomy History of left knee surgery History of arthroscopy of right knee History of gastric bypass Social History adopted: No household members: none housing: assisted living facility number of children: 4 current occupational status: retired current occupational exposures/hazards: No history of recent travel: No sexually active: No Smoking Status: Never smoker alcohol intake: current alcohol intake frequency: holidays/special occasions only details: One drink per year. substance use type: does not use well-balanced diet: daily or most days caffeine: Yes Type: coffee Number of servings: 2 eating out: 1-3 times/week during the past year weight has: increased > 10 lbs what type of physical activity do you participate in: none seatbelt use: always do you feel safe at home: Yes ROS ROS ED Constitutional Constitutional ED: Denies chills or fever(s) ENT ENT ED: Reports rhinorrhea; Denies sore throat Cardiovascular Cardiovascular: Reports racing heartbeat; Denies chest pain Respiratory/Chest Respiratory/Chest: Reports cough and dyspnea Gastrointestinal Gastrointestinal: Denies abdominal pain, diarrhea, nausea or vomiting Genitourinary Genitourinary ED: Denies dysuria Musculoskeletal Musculoskeletal: Reports myalgias Integumentary Denies rash Neurologic Neurologic: Reports headache(s) and weakness Hematologic/Lymphatic Hematologic/Lymphatic: Denies easy bleeding or easy bruising EXAM Physical Exam Const Vital Signs: 08/08/24 06:28 08/08/24 06:32 08/08/24 07:01 Temperature 98.3 F 98.3 F Temperature Source Oral Oral Pulse Rate 125 H 117 H Respiratory Rate 20 H 20 H Respiratory Effort Short of Breath Labored Respiratory Depth Shallow Respiratory Pattern Tachypnea Blood Pressure 162/85 H 162/85 H Blood Pressure Mean 110 110 Pulse Ox 97 97 Oxygen Delivery Method Room Air Room Air Room Air 08/08/24 07:05 08/08/24 08:27 Temperature Temperature Source Pulse Rate 84 Respiratory Rate 20 H 16 Respiratory Effort Respiratory Depth Respiratory Pattern Normal Blood Pressure 112/79 Blood Pressure Mean 90 Pulse Ox 100 Oxygen Delivery Method Nasal Cannula Positive well nourished, well developed and obese General Appearance ED: well developed; Negative for pallor Nutritional Appearance: obese HEENT Reports dry mucous membranes HEENT Narrative: No tongue or lip swelling no oral lesions no airway edema or compromise There is cobblestoning noted in the posterior pharynx consistent with sinus drainage but no secondary findings to suggest infection Mouth ED: Yes dry mucous membranes Mouth: dry mucous membranes Eyes PERRL and EOMs intact bilaterally General Eye ED: Negative for scleral icterus Neck supple and no JVD Neck Narrative: No nuchal rigidity or meningeal signs noted Chest Wall Chest Narrative: There is reproducible anterior chest wall pain on palpation without bony deform ity or crepitance Resp normal respiratory effort Resp Narrative: Breath sounds are diminished throughout with faint rhonchi in the bilateral bases but overall no signs of respiratory distress Cardio Rate: other Other Details: Tachycardic rate with irregularly irregular rhythm concerning for atrial fibrillation GI normal to inspection, nondistended, normoactive bowel sounds, non-tender, non- distended and no masses GI Narrative: No voluntary guarding or rigidity or pulsatile mass Auscultation: normoactive bowel sounds Palpation: soft Extremity Extremity Narrative: Patient has chronic lymphedema and there is swelling consistent with this with negative Homans' sign bilaterally Neuro oriented x3, CN's II-XII intact bilaterally and no sensory deficits noted Sensorium / Orientation: alert Psych Psych Narrative: Patient has a flat affect Skin no rashes or lesions noted General Skin Exam: Negative for jaundice or pallor MDM MDM MDM Narrative Medical decision making narrative: Patient arrived to the ER afebrile but was tachycardic. History and exam is concerning for viral infection such as COVID influenza or RSV versus potential pneumonia. With the tachycardia and no history of abnormal heart rhythm patient may also have a cardiac dysrhythmia such as A-fib a flutter or SVT. An EKG was obtained which showed changes consistent with A-fib with RVR. She was given 20 mg of IV Cardizem and the heart rate reduced to approximately 80 and repeat EKG now shows normal sinus rhythm. The case was discussed with cardiology on-call Dr. Jama. He recommends patient be placed on Eliquis 5 mg twice a day as she is under 80 and her creatinine is less than 1.5 and also that she be started on a beta-tatiana so 25 mg of metoprolol tartrate was given. As the patient is in A-fib with RVR upon arrival and it is unsure of how long she has been there and has been having respiratory issues as well as right shoulder pain there is concern for potential PE or pneumonia. CTA revealed no PE or obvious pneumonia. However her pulse ox did drop to 85% on room air and she does not typically need oxygen at baseline. Therefore she was placed on 2 L nasal cannula and her pulse ox improved to 98 to 100%. At this time she is hemodynamically stable but as she is now requiring oxygen and has generalized fatigue to the point where it is difficulty for her to ambulate I do not feel that being discharged home would be appropriate. The case was discussed with the hospitalist secondary to this and she agrees to accept the patient for continued care. She does asked that a UA be added to check for potential cause of her white count and generalized fatigue and weakness therefore this was added but as there is no obvious pneumonia on CTA we will hold off on emergent IV antibiotics at this time. History & Record Review Discussion w/independent historian: Patient and Family Lab Data Attestation: I reviewed the patient's lab results. Labs: Laboratory Results - last 24 hr 08/08/24 08/08/24 06:59 07:59 WBC 15.0 H RBC 3.78 L Hgb 11.9 L Hct 36.9 L MCV 97.6 MCH 31.5 MCHC 32.2 RDW Std Deviation 48.7 H RDW Coeff of Stephanie 13.5 Plt Count 342 MPV 10.2 Immature Gran % (Auto) 0.500 Neut % (Auto) 75.6 H Lymph % (Auto) 10.7 L Lawrence % (Auto) 11.2 H Eos % (Auto) 1.5 Baso % (Auto) 0.5 Absolute Neuts (auto) 11.4 H Absolute Lymphs (auto) 1.61 Nucleated RBC % 0 Diff Path Review May foll PT Cancelled INR Cancelled APTT Cancelled Sodium 137 Potassium 4.4 Chloride 103 Carbon Dioxide 23.1 Anion Gap 11 BUN 18 Creatinine 1.20 Estim Creat Clear Calc 54.33 Est GFR (MDRD) Non-Af 46 L BUN/Creatinine Ratio 14.6 Glucose 115 H Calcium 9.2 Magnesium 2.2 TSH 0.287 L Radiography Diagnostic Testing: Clinical Impression(s) from Imaging Studies Chest X-Ray 08/08/24 06:50 IMPRESSION: As above. Reading Location: [id number] Chest CTA 08/08/24 07:19 IMPRESSION: 1. No pulmonary embolism is identified. Some of the distal pulmonary arteries cannot be evaluated due to suboptimal opacification. 2. Small esophageal hiatal hernia. Reading [facility] Chest x-ray as interpreted by the emergency medicine physician reveals bibasilar atelectasis versus infiltrate Discharge Plan Triage Chief Complaint: Cough ED Provider: Todd Saucedo Dx/Rx/DC Orders Clinical Impression: Paroxysmal atrial fibrillation with rapid ventricular response, Hypothyroidism, Viral URI with cough, Hypoxia, Generalized weakness Prescriptions: No Action duloxetine [Cymbalta] 60 mg capsule,delayed release(DR/EC) 60 mg PO DAILY aspirin [Adult Low Dose Aspirin] 81 mg tablet,delayed release (DR/EC) 81 mg PO DAILY Centrum Silver 0.4 mg-300 mcg- 250 mcg tablet 1 tab PO DAILY acetaminophen 500 mg tablet 1,000 mg PO TID PRN (Reason: fever or pain) calcium carbonate [Antacid (calcium carbonate)] 200 mg calcium (500 mg) tablet,chewable 400 mg PO DAILY celecoxib [Celebrex] 200 mg capsule 200 mg PO DAILY (DME) juxta lite See Rx Instructions .Route .MEDSUPPLY Qty: 2 3RF Rx Instructions: 20 -30 mmHg semaglutide (weight loss) 0.25 mg/0.5 mL pen injector 0.25 mg subcut QWEEK Qty: 2 0RF Rx Instructions: administer weeks 1 through 4 of therapy furosemide 20 mg Tablet 20 mg PO QODAY 7 Days Qty: 4 0RF cephalexin 500 mg Capsule 500 mg PO Q6 7 Days Qty: 0 0RF (DME) arm brace Misc See Rx Instructions .Route Qty: 1 0RF Rx Instructions: left wrist brace, wear at night (DME) arm brace Misc See Rx Instructions .Route Qty: 1 0RF Rx Instructions: Right wrist brace, wear at night sumatriptan succinate [Imitrex] 25 mg tablet See Rx Instructions PO .COMPLEX Qty: 14 1RF Rx Instructions: take 1 tab at onset of headache; if no relief may repeat 1 tab after at least 2 hrs; max = 4 tabs/24 hr PO levothyroxine [Synthroid] 200 mcg tablet 200 mcg PO DAILY Qty: 120 1RF Rx Instructions: Take 200 mcg daily on 6 days and 300 mcg on 1 day ergocalciferol (vitamin D2) 1,250 mcg (50,000 unit) capsule 1,250 mcg PO QWEEK Qty: 20 1RF alendronate 70 mg tablet 70 mg PO QWEEK Qty: 14 1RF Primary Care Provider: Calista Yeh Referrals: Calista Yeh MD [Primary Care Provider] - Print Language: Thai Disposition Disposition: Acute Care Hospital [facility]
[2024-08-08 09:45] LABS: International Normalized Ratio 1.1; Prothrombin Time (Protime)PT. 14.8 SECONDS (11.7-14.9)
[2024-08-08 09:46] LABS: Partial Thromboplast Time 25.7 Seconds (24.1-36.2)
--- NOTE | 2024-08-08 09:59 | PCM.HP.STD ---
HPI - General General Date of Admission: 08/08/24 Date of Service: 08/08/24 Chief Complaint: sob, aches HPI Narrative BERNARD ENG, is a 79-year-old female history of hypothyroidism, PAM, morbid obesity, anxiety and depression who presented [facility] ED 08/08/2024 with daughter with complaint of feeling ill and having a cough for 4 weeks but did not have COVID, influenza, RSV or pneumonia. Symptoms had resolved but over the past week she has now been complaining of cough, congestion, and shortness of breath as well as pain in the right shoulder. Patient also weak and having difficulty getting around due to her myalgias, shortness of breath, fatigue so she was brought in for evaluation. In the ED heart rate initially 125 with blood pressure 162/85, respiratory rate 20, pulse ox 97% on room air. Heart rate appeared fib/flutter which is new for her and she converted to sinus rhythm with diltiazem when she was started on metoprolol and Eliquis. White blood cell count was 15 and chest x-ray queried pneumonia however CTA showed no PE and did not comment on any evidence of pneumonia. While in the ED patient's oxygen went down to 85% on room air and she was placed on 2 L saturating very well, she was given steroids and breathing treatments and hospitalist contacted for admission. Patient evaluated at bedside with daughter present who provided most with history. Patient had not been feeling well for about 4 weeks but symptoms resolved, this past week she has had some more shortness of breath with dry cough, muscle aches, fatigue and weakness also stuffy nose and has been having more aching in her right shoulder. Also reports yeastlike rash under her left breast, no fevers noted, no new bowel or bladder complaints, has chronic lymphedema in her legs but this is actually improved over time and it is being wrapped appropriately. Patient's daughter confirms no history of A-fib, also patient has sleep apnea and wears her CPAP about 4 hours a night when she is in bed. Denies any history of COPD or asthma [facility] Medical History Generalized weakness Dyspnea on exertion Anxiety and depression Incontinence Debility Chronic left shoulder pain Osteoporosis Multiple premature ventricular complexes Venous insufficiency of both lower extremities ADD (attention deficit disorder) Chronic back pain Obesity Anemia Shoulder pain with history of repair of rotator cuff Tibial plateau fracture, left Keloid of skin Ptosis of both eyelids History of fracture due to fall Fracture of left upper limb History of tibial fracture Vitamin B 12 deficiency Iron deficiency anemia Other specified disorders of bone density and structure, unspecified site Allergic rhinitis ADHD History of fractured kneecap Uses hearing aid Hearing impairment History of migraine headaches Home Medications ?Medication ?Instructions ?Recorded ?Last Taken ?Type aspirin 81 mg tablet,delayed 81 mg PO DAILY 10/06/21 04/18/24 History release (Adult Low Dose Aspirin) duloxetine 60 mg capsule,delayed 60 mg PO DAILY 10/06/21 04/18/24 History release (Cymbalta) [id number] acid 0.4 1 tab PO DAILY 10/06/21 04/18/24 History mg-lycopene 300 mcg-lutein 250 mcg tablet (Centrum Silver) acetaminophen 500 mg tablet 1,000 mg PO TID PRN fever or pain 10/23/21 04/18/24 History celecoxib 200 mg capsule (Celebrex) 200 mg PO DAILY pain 02/23/23 04/18/24 History calcium carbonate (Antacid 400 mg PO DAILY 04/01/23 04/18/24 History (calcium carbonate)) juxta lite #2 ea 04/01/23 Unknown Rx arm brace #1 ea 04/13/23 Unknown Rx arm brace #1 ea 04/15/23 Unknown Rx semaglutide (weight loss) 0.25 0.25 mg (0.5 mL) subcut QWEEK #2 mL 12/07/23 Unknown Rx mg/0.5 mL subcutaneous pen injector sumatriptan succinate 25 mg tablet See Rx Instructions PO .COMPLEX 02/02/24 Unknown Rx (Imitrex) #14 tabs cephalexin 500 mg capsule 500 mg PO Q6 7 days #0 caps 04/22/24 Unknown Rx furosemide 20 mg tablet 20 mg PO QODAY 7 days #4 tabs 04/22/24 Unknown Rx levothyroxine 200 mcg tablet 200 mcg PO DAILY #120 tabs 06/18/24 Unknown Rx (Synthroid) alendronate 70 mg tablet 70 mg PO QWEEK #14 tabs 08/06/24 Unknown Rx ergocalciferol (vitamin D2) 1,250 1,250 mcg PO QWEEK #20 caps 08/06/24 Unknown Rx mcg (50,000 unit) capsule Allergy/AdvReac Type Severity Reaction Status Date / Time No Known Allergies Allergy Verified 08/08/24 06:33 Family History Father Sudden cardiac , Onset Age: 59 Alcoholism Mother Type II diabetes mellitus Lymphoma Arthritis Brother Sudden cardiac , Onset Age: 49 Grandmother Type II diabetes mellitus Grandmother Type II diabetes mellitus Surgical History Hx of cholecystectomy History of left knee surgery History of arthroscopy of right knee History of gastric bypass Social History adopted: No household members: none housing: assisted living facility number of children: 4 current occupational status: retired current occupational exposures/hazards: No history of recent travel: No sexually active: No Smoking Status: Never smoker alcohol intake: current alcohol intake frequency: holidays/special occasions only details: One drink per year. substance use type: does not use well-balanced diet: daily or most days caffeine: Yes Type: coffee Number of servings: 2 eating out: 1-3 times/week during the past year weight has: increased > 10 lbs what type of physical activity do you participate in: none seatbelt use: always do you feel safe at home: Yes ROS ROS Narrative General: Denies fever/chills HENT: Some chronic migraines, stuffy nose EYES: Denies changes in vision Resp: Dry cough with increased shortness of breath Cardiac: Denies chest pain GI: Denies abdominal pain, denies changes in bowel, denies nausea/vomiting : Denies changes in urination, some chronic incontinence Extremity: Improved swelling in legs MSK: Feels generally weak and achy, also some right shoulder pain Neuro: Denies any numbness/tingling Heme: Denies any bleeding or bruising Skin: Some yeastlike rash under right breast Psychiatric: No complaints voiced, just feels tired Vital Signs Vital Signs Vital Signs: 08/08/24 06:28 08/08/24 06:32 08/08/24 07:01 Temperature 98.3 F 98.3 F Temperature Source Oral Oral Pulse Rate 125 H 117 H Respiratory Rate 20 H 20 H Respiratory Effort Short of Breath Labored Respiratory Depth Shallow Respiratory Pattern Tachypnea Blood Pressure 162/85 H 162/85 H Blood Pressure Mean 110 110 Pulse Ox 97 97 Oxygen Delivery Method Room Air Room Air Room Air 08/08/24 07:05 08/08/24 08:27 Temperature Temperature Source Pulse Rate 84 Respiratory Rate 20 H 16 Respiratory Effort Respiratory Depth Respiratory Pattern Normal Blood Pressure 112/79 Blood Pressure Mean 90 Pulse Ox 100 Oxygen Delivery Method Nasal Cannula Weight Weight: 144.3 kg Body Mass Index (BMI) 54.6 Physical Exam Narrative General: Patient awake and answers questions but not a wonderful historian, daughter provides most of the history HEENT: Atraumatic, normocephalic Eyes: Anicteric, normal conjunctiva, extraocular movements grossly intact Neck: Supple Respiratory: Diminished bilaterally, in part due to body habitus but no overt wheezes or rhonchi, normal respiratory effort Cardiovascular: Regular rate at this time GI: Soft, nontender, nondistended Extremities: Legs wrapped, based on ankles edema seems improved since previous exam Musculoskeletal: Moving all extremities Neuro: No overt focal neurological deficits Skin: Patient endorses rash under left breast Psych: Cooperative Results Lab / Micro Data 08/08/24 06:59 08/08/24 06:59 Labs: Laboratory Results - last 24 hr 08/08/24 06:59: WBC 15.0 H, RBC 3.78 L, Hgb 11.9 L, Hct 36.9 L, MCV 97.6, MCH 31.5, MCHC 32.2, RDW Std Deviation 48.7 H, RDW Coeff of Stephanie 13.5, Plt Count 342, MPV 10.2, Immature Gran % (Auto) 0.500, Neut % (Auto) 75.6 H, Lymph % (Auto) 10.7 L, Harris % (Auto) 11.2 H, Eos % (Auto) 1.5, Baso % (Auto) 0.5, Absolute Neuts (auto) 11.4 H, Absolute Lymphs (auto) 1.61, Nucleated RBC % 0, Diff Path Review September, Sodium 137, Potassium 4.4, Chloride 103, Carbon Dioxide 23.1, Anion Gap 11, BUN 18, Creatinine 1.20, Estim Creat Clear Calc 54.33, Est GFR (MDRD) Non-Af 46 L, BUN/Creatinine Ratio 14.6, Glucose 115 H, Calcium 9.2, Magnesium 2.2, TSH 0.287 L 08/08/24 07:59: PT Cancelled, INR Cancelled, APTT Cancelled 08/08/24 09:30: PT 14.8, INR 1.1, APTT 25.7 Micro: Microbiology 08/08/24 07:00 Mucosa - Nose SARS-CoV-2, Influenza & RSV (PCR) - Final Imaging Radiology Impression Chest X-Ray 08/08/24 06:50 IMPRESSION: As above. Reading Location: [id number] Chest CTA 08/08/24 07:19 IMPRESSION: 1. No pulmonary embolism is identified. Some of the distal pulmonary arteries cannot be evaluated due to suboptimal opacification. 2. Small esophageal hiatal hernia. Reading [facility] Assessment & Plan Assessment/Plan (1) Hypoxia: PLAN: Plan # Hypoxia of unclear etiology -No overt pneumonia on CT scan and PE negative -Has had to be on Lasix due to fluid retention despite previous normal EF and normal diastole (previously thought that maybe there is component of hypertension but this was unable to be assessed by echo) -Will check BNP -Given the hypoxia and new onset A-fib will check limited echo -Daily weights, I's and O's -Incentive spirometer -COVID/flu/RSV negative, will check full respiratory panel # New onset A-fib/flutter -On arrival to the ED -Converted with diltiazem -Slightly decrease Synthroid as below -Check limited echo -Monitor on telemetry # Hypothyroidism -Patient previously with TSH of 25 despite compliance with her Synthroid, adjusted how she took it and now TSH 0.2 which may have contributed to the new onset A-fib -Will decrease Synthroid slightly #PAM -Continue home NIPPV #Morbid obesity with history of gastric sleeve -BMI documented as 54.6 kg/m? at time of admission -Complicates treatment, prognosis, outcomes -Recommend weight loss and lifestyle changes #Depression/anxiety -Continue home medications #DVT ppx: Patient started on Terry Robison MD Charges/Coding Visit Charges Inpatient E&M: 03498 Init Hosp L2
--- NOTE | 2024-08-08 10:08 | ECHOLC_ITS ---
Reason For Study Reason For Study: AFIB/FLUTTER (NEW ONSET) Procedure This was a limited 2D transthoracic echocardiogram. The study was technically difficult. Due to body habitus. Contrast injection was performed. Left Ventricle Normal LV size. The estimated ejection fraction is 60 %. Unable to assess diastolic dysfunction. No regional wall motion abnormalities noted. Right Ventricle Normal RV size. Normal systolic function. Atria There is mild biatrial dilatation. No doppler evidence for ASD. Mitral Valve There is no mitral valve stenosis. There is no mitral regurgitation noted. Tricuspid Valve There is no tricuspid stenosis. Mild tricuspid valve insufficiency. Pulmonary artery systolic pressure is 35 mmHg. Aortic Valve Trisinus/trileaflet aortic valve. There is no aortic stenosis. No aortic valve insufficiency. Pulmonic Valve There is no pulmonic valvular stenosis. No pulmonic valve insufficiency. Great Vessels Normal sized aortic root. Pericardium/Pleural No pericardial effusion. Medication Diluted definity 3.0ml given slow IV push to enhance endocardial definition. MMode/2D Measurements & Calculations LVIDd: 5.6 cm IVSd: 1.0 cm Ao root diam: 3.7 cm LVIDs: 3.7 cm LVPWd: 1.0 cm FS: 33.2 % LAV(MOD-bp): 66.0 ml LVAd ap4: 24.9 cm2 LVAd ap2: 25.9 cm2 LAV(MOD-bp) Indexed: 27.7 ml/m2 LVLd ap4: 7.4 cm LVLd ap2: 7.0 cm LAV(MOD-sp2): 65.2 ml EDV(MOD-sp4): 70.7 ml EDV(MOD-sp2): 81.1 ml LAV(MOD-sp4): 63.4 ml EDV(sp4-el): 71.1 ml EDV(sp2-el): 81.8 ml LVAs ap4: 13.8 cm2 LVAs ap2: 14.8 cm2 LVLs ap4: 6.1 cm LVLs ap2: 6.4 cm ESV(MOD-sp4): 27.2 ml ESV(MOD-sp2): 29.0 ml ESV(sp4-el): 26.8 ml ESV(sp2-el): 29.1 ml EF(MOD-sp4): 61.5 % EF(MOD-sp2): 64.2 % EF(sp4-el): 62.4 % SV(MOD-sp4): 43.5 ml SV(MOD-sp2): 52.1 ml SV(sp4-el): 44.4 ml SI(MOD-sp4): 18.2 ml/m2 SI(MOD-sp2): 21.9 ml/m2 LA A4 area: 22.2 cm2 LA dimension(2D): 4.5 cm Doppler Measurements & Calculations TR max carlos: 268.5 cm/sec TR max P.8 mmHg ECHO/Echo Limited w/Contrast Interpretation Summary The estimated ejection fraction is 60 %. Unable to assess diastolic dysfunction. There is mild biatrial dilatation. Ordering Physician: Natalia Robison Referring Physician: Calista Yeh Performed By: Mecca Miller RDCS, RVT
[2024-08-08] MEDS: Metoprolol Tartrate 25 MG Tablet PO ×2 (10:15→22:32)
[2024-08-08] MEDS: APIXABAN 5 MG TABLET PO ×2 (10:15→22:32)
[2024-08-08 10:34] LABS: Pro- Brain NATRIURETIC PEPTIDE 2156 pg/mL (<=1800)
[2024-08-08 14:36] LABS: Bacteria 0 SEEN /hpf (None Seen); Mucous, Urine 0 SEEN /hpf (<or=2+); Squamous Epithelial Cells - UA 0 SEEN /hpf (5-10)
[2024-08-08 14:38] LABS: Color, Urine Yellow (Yellow); Glucose, Dipstick Normal (Normal); Ketone-Dipstick Negative (Negative); Leukocyte Esterase-Dipstick 100 /ul (Negative); Nitrite-Dipstick Positive (Negative); Occult Blood-Urine 50 /ul (Negative); Protein-Dipstick 30 mg/dl (Negative); Specific Gravity, Urine 1.015 (1.002-1.030); Urine Bilirubin Dipstick Negative (Negative); Urine Clarity Clear (Clear); Urine Urobilinogen 1 mg/dl (Normal)
[2024-08-08 14:50] LABS: Red Blood Cells-Urine 0 SEEN /hpf (0-5); White Blood Cells 0-5 SEEN /hpf (0-5)
[2024-08-08] MEDS: Albuterol 2.5 MG/3 ML VIAL.NEB. INHALATION (18:57)
[2024-08-08] MEDS: Nystatin Powder 15gm Bottle 1 APPLIC TOPICAL (22:32)
[2024-08-08] MEDS: Arthritis Pain Compound 60 CLICK TUBE TOPICAL (22:32)
[2024-08-09] VITALS (8 sets, daily range): BP systolic 123–140; BP diastolic 62–88; PULSE 60–69; RESP 16–18; TEMP 36.4–36.6; O2SAT 91–100; BMI 54.1
[2024-08-09] MEDS: Levothyroxine 175 MCG Tablet PO (05:28)
[2024-08-09 05:56] LABS: Absolute Lymphocyte Count 1.38 X10^3/uL (0.83-4.51); Absolute Neutrophil Count 15.8 X10^3/uL (2.0-7.7); Basophil# 0.02 X10^3/uL; Basophil% 0.1 % (0-1); Eosinophil# 0.02 X10^3/uL; Eosinophils% 0.1 % (0-5); Hematocrit 32.9 % (37-47); Hemoglobin 10.5 g/dL (12.0-15.0); Lymphocyte # 1.38 X10^3/ul (0.83-4.51); Lymphocyte % 7.6 % (19-41); Mean Corp Hgb Conc 31.9 g/dL (32-36); Mean Corpuscular Hgb 31.4 pg (27.0-32.0); Mean Corpuscular Volume 98.5 fL (81-99); Mean Platelet Vol. 11.2 fl (6.2-12.0); Monocyte# 0.93 X10^3/uL; Monocyte% 5.1 % (0-10); NRBC Flagged by Analyzer 0 % (0-5); Neutrophil # 15.81 X10^3/uL (2.7-7.7); Neutrophil % 86.5 % (47-70); Platelet Count 344 K/mm3 (150-450); RBC Distribution Width CV 13.4 % (11.6-14.6); RBC Distribution Width SD 47.8 fl (35.1-43.9); Red Blood Count 3.34 M/mm3 (4.2-5.4); White Blood Count 18.3 K/mm3 (4.4-11.0)
[2024-08-09 06:56] LABS: Anion Gap 12 (5-15); BUN/Creat Ratio UNABLE TO CALCULATE RATIO (10-20); Calcium,Total 8.6 mg/dL (7.6-11.0); Carbon Dioxide 19.8 mmol/L (21.0-32.0); Chloride 105 mmol/L (98-108); Creatinine, Serum 1.12 mg/dL (0.70-1.20); EST Glomerular Filtration Rate 50 (>60); Estimated Creatinine Clearance 57.93 ml/min (50-250); Glucose 153 mg/dL (70-99); Potassium 4.4 mmol/L (3.3-5.1); Sodium Level 137 mmol/L (133-145)
--- NOTE | 2024-08-09 08:25 | PN.HOSP_ITS ---
Reason for Visit Reason for Visit: Diagnoses Hypoxemia (08/08/24) Objective Data Objective Data Vital Signs: Vital Signs Temp Pulse Resp BP Pulse Ox O2 Del Method O2 Flow Rate 97.5 F L 69 16 137/80 H 100 Nasal Cannula 2 08/09/24 05:25 08/09/24 05:25 08/09/24 05:25 08/09/24 05:25 08/09/24 05:25 08/09/24 05:25 08/09/24 05:25 Oxygen Flow Rate (L/min) 2 Oxygen Delivery Method Nasal Cannula Weight: 143.2 kg Body Mass Index (BMI) 54.1 Intake & Output: Intake and Output for Last 24 Hours 08/07/24 08/08/24 08/09/24 23:59 23:59 23:59 Intake Total 400 / 400 Output Total 600 / 600 Balance 400 / 100 -600 / -600 Lab / Micro Data 08/09/24 04:21 08/09/24 04:21 Labs: Laboratory Results - last 24 hr 08/08/24 06:59: NT pro BNP II 2156 H, TSH 0.287 L 08/08/24 07:59: PT Cancelled, INR Cancelled, APTT Cancelled 08/08/24 09:30: PT 14.8, INR 1.1, APTT 25.7 08/08/24 14:24: Urine Color Yellow, Urine Clarity Clear, Urine pH 5.0, Ur Specific [place] 1.015, Urine Protein 30 H, Urine Glucose (UA) Normal, Urine Ketones Negative, Urine Occult Blood 50 H, Urine Nitrite Positive H, Urine Bilirubin Negative, Urine Urobilinogen 1 H, Ur Leukocyte Esterase 100 H, Urine RBC 0 SEEN, Urine WBC 0-5 SEEN, Ur Squamous Epith Cells 0 SEEN, Urine Bacteria 0 SEEN, Urine Mucus 0 SEEN 08/09/24 04:21: WBC 18.3 H, RBC 3.34 L, Hgb 10.5 L, Hct 32.9 L, MCV 98.5, MCH 31.4, MCHC 31.9 L, RDW Std Deviation 47.8 H, RDW Coeff of Stephanie 13.4, Plt Count 344, MPV 11.2, Immature Gran % (Auto) 0.600, Neut % (Auto) 86.5 H, Lymph % (Auto) 7.6 L, Page % (Auto) 5.1, Eos % (Auto) 0.1, Baso % (Auto) 0.1, Absolute Neuts (auto) 15.8 H, Absolute Lymphs (auto) 1.38, Nucleated RBC % 0, Sodium 137, Potassium 4.4, Chloride 105, Carbon Dioxide 19.8 L, Anion Gap 12, BUN TNP, Creatinine 1.12, Estim Creat Clear Calc 57.93, Est GFR (MDRD) Non-Af 50 L, B UN/Creatinine Ratio UNABLE TO CALCULATE L, Glucose 153 H, Calcium 8.6 Micro: Microbiology 08/08/24 13:07 Mucosa - Nose Respiratory Panel (PCR) - Final 08/08/24 07:00 Mucosa - Nose SARS-CoV-2, Influenza & RSV (PCR) - Final Radiography Diagnostic Testing: Radiology Impression Chest CTA 08/08/24 07:19 IMPRESSION: 1. No pulmonary embolism is identified. Some of the distal pulmonary arteries cannot be evaluated due to suboptimal opacification. 2. Small esophageal hiatal hernia. [facility] Assessment & Plan Assessment/Plan (1) Hypoxia: PLAN: Plan # Hypoxia of unclear etiology -No overt pneumonia on CT scan and PE negative -Has had to be on Lasix due to fluid retention despite previous normal EF and normal diastole (previously thought that maybe there is component of hypertension but this was unable to be assessed by echo) -Will check BNP -Given the hypoxia and new onset A-fib will check limited echo -Daily weights, I's and O's -Incentive spirometer -COVID/flu/RSV negative, will check full respiratory panel -08/09: Patient with proBNP of 2100, has never had a normal BNP in our system and while chest x-ray read possible mild congestion this was not confirmed on CTA, limited echo is pending, patient's saturations at 100% on 2 L today, COVID and respiratory panel negative, patient did receive morphine in the ED and subsequently had the mild hypoxia, given no other etiologies suspect this may have contributed. It is also possible that patient's new onset A-fib/flutter with elevated rate contributed to her shortness of breath and now that rate is controlled breathing is improved # New onset A-fib/flutter -On arrival to the ED -Converted with diltiazem -Slightly decrease Synthroid as below -Check limited echo -Monitor on telemetry -08/09: Decreased Synthroid, patient being monitored on telemetry, limited echo pending, continue Eliquis and metoprolol # Hypothyroidism -Patient previously with TSH of 25 despite compliance with her Synthroid, adjusted how she took it and now TSH 0.2 which may have contributed to the new onset A-fib -Will decrease Synthroid slightly -08/09: Will need repeated labs on an outpatient basis Chronic medical problems: #PAM -Continue home NIPPV #Morbid obesity with history of gastric sleeve -BMI documented as 54.6 kg/m? at time of admission -Complicates treatment, prognosis, outcomes -Recommend weight loss and lifestyle changes #Depression/anxiety -Continue home medications #DVT ppx: Patient started on Eliquis Natalia Robison MD
[2024-08-09] MEDS: Metoprolol Tartrate 25 MG Tablet PO (08:55)
[2024-08-09] MEDS: Arthritis Pain Compound 60 CLICK TUBE TOPICAL (08:55)
[2024-08-09] MEDS: Aspirin E.C. 81 MG Tablet PO (08:55)
[2024-08-09] MEDS: DULoxetine Hcl 60 MG Capsule PO (08:56)
[2024-08-09] MEDS: APIXABAN 5 MG TABLET PO (08:56)
[2024-08-09] MEDS: Nystatin Powder 15gm Bottle 1 APPLIC TOPICAL (08:56)
--- NOTE | 2024-08-09 10:25 | CASEMGMT ---
RN JACQUIE Face to Face with patient for initial transition planning/care coordination assessment. RN CM introduced self and role at [facility]. Patient sitting in chair, alert and oriented, daughter at bedside. Patient willing to participate in assessment and is able to answer all questions appropriately. Care providers, pharmacy, and demographics verified. Strata: 2 PCP: Ruba Specialists: none Preferred Pharmacy: [facility] Insurance: MCR, Prescription Benefit: yes Living Will/HPOA: yes, daughter Brooks Koenig LNOK: daughters Living Arrangements: Patient lives with daughter in a first floor [place] at [facility] independent living. Patient dresses and toilets self, has aide to assist with bathing. Transportation: daughters DME/HHC: Patient has raised toilet, walker, and cpap at home. Patient has been to [facility] in the past. Patient has had [facility] home therapy previously. Patient has private aide M-F 2hrs everyday. Patient wishes to discharge home with home therapy through [facility]. Patient states she has no further needs or concerns at this time. CM to follow for discharge planning needs that may arise. Disposition Plan: Patient to discharge home with home therapy, family support, and follow-up plans in place Romy OGDEN, RN, CM
--- NOTE | 2024-08-09 11:33 | CASEMGMT ---
JOÃO DHILLON NOTE: [facility] order for PT/OT faxed to [facility], [place], @ [phone]. Roseanna OGDEN RN, CM
--- NOTE | 2024-08-09 13:51 | DCINST_ITS ---
Discharge Instructions Diet Discharge Diet: No restrictions DC O2, CPAP, BIPAP needs Home O2 Discharge instructions: No Dressing / Incision Discharge Activity: Return to Normal Activity and - Follow Up Care Test Results: Test results from this visit will be discussed in further detail at your follow- up appointment, if applicable. Discharge Plan Admission Admit Date/Time: 08/08/24 09:59 Primary Reason for Your Visit: Cough and shortness of breath Attending Provider: Natalia Robison Primary Care Provider: Calista Yeh Instructions Patient Instructions: AFib Dc Additional Instructions / Restrictions: DISCHARGE INSTRUCTIONS PLEASE READ *Please take this with you to your next doctors appointment* -You were found to have atrial fibrillation with fast rate upon arrival to the emergency department, this improved with metoprolol which she will be discharged on and you will also be started on a blood thinner, Eliquis, given this new diagnosis -Additionally your Synthroid was decreased based on your low TSH, will need to follow with your primary care physician ultimately this will need to be rechecked to assess for any further titration necessary -If you would like to establish with a info specialist given your new onset atrial fibrillation, contact information as below -Please call your primary care provider's office upon discharge to schedule a hospital follow up within 1 week. -For any concerning signs or symptoms please call 911 or proceed to the nearest emergency department Discharge Orders/Prescriptions Prescriptions: New Eliquis 5 mg Tablet 5 mg PO BID 30 Days Qty: 60 0RF levothyroxine 175 mcg Tablet 175 mcg PO DAILY 30 Days Qty: 30 0RF Rx Instructions: To replace to 200 mcg prescription metoprolol tartrate 25 mg Tablet 25 mg PO BID 30 Days Qty: 60 0RF Continued duloxetine [Cymbalta] 60 mg capsule,delayed release(DR/EC) 60 mg PO DAILY aspirin [Adult Low Dose Aspirin] 81 mg tablet,delayed release (DR/EC) 81 mg PO DAILY Centrum Silver 0.4 mg-300 mcg- 250 mcg tablet 1 tab PO DAILY acetaminophen 500 mg tablet 1,000 mg PO TID PRN (Reason: fever or pain) calcium carbonate [Antacid (calcium carbonate)] 200 mg calcium (500 mg) tablet,chewable 400 mg PO DAILY (DME) juxta lite See Rx Instructions .Route .MEDSUPPLY Qty: 2 3RF Rx Instructions: 20 -30 mmHg (DME) arm brace Misc See Rx Instructions .Route Qty: 1 0RF Rx Instructions: left wrist brace, wear at night (DME) arm brace Misc See Rx Instructions .Route Qty: 1 0RF Rx Instructions: Right wrist brace, wear at night sumatriptan succinate [Imitrex] 25 mg tablet See Rx Instructions PO .COMPLEX Qty: 14 1RF Rx Instructions: take 1 tab at onset of headache; if no relief may repeat 1 tab after at least 2 hrs; max = 4 tabs/24 hr PO ergocalciferol (vitamin D2) 1,250 mcg (50,000 unit) capsule 1,250 mcg PO QWEEK Qty: 20 1RF alendronate 70 mg tablet 70 mg PO QWEEK Qty: 14 1RF Discontinued celecoxib [Celebrex] 200 mg capsule 200 mg PO DAILY cephalexin 500 mg Capsule 500 mg PO Q6 7 Days Qty: 0 0RF levothyroxine [Synthroid] 200 mcg tablet 200 mcg PO DAILY Qty: 120 1RF Rx Instructions: Take 200 mcg daily on 6 days and 300 mcg on 1 day Referrals / Follow Up: Calista Yeh MD [Primary Care Provider] - Within 1 Week Lan Jama MD [Med Staff - Active Staff] - (If you would like to establish with the cardiology office. New onset atrial fibrillation you can contact the office and establish with any available provider) Disposition Disposition (needs filled in before D/C Order can be placed): Home Health Service
--- NOTE | 2024-08-09 13:58 | PCM.DC.SUM ---
Providers Date of Admission: 08/08/24 Date of Discharge: 08/09/24 Primary Care Physician: Dr. Calista Yeh MD Reason For Visit: HYPOXIA, SHORTNESS OF BREATH Diagnosis Discharge Diagnosis (1) Hypoxia: Status: Acute Code(s): R09.02 - Hypoxemia (2) Paroxysmal A-fib: Status: Acute Code(s): I48.0 - Paroxysmal atrial fibrillation Plan # New onset A-fib/flutter with RVR # Hypoxia and shortness of breath in setting of above # Hypothyroidism # Urinary tract infection #PAM #Morbid obesity with history of gastric sleeve #Depression/anxiety Medications at Discharge Home Medications aspirin 81 mg tablet,delayed release (Adult Low Dose Aspirin) 81 mg PO DAILY heart health 10/06/21 duloxetine 60 mg capsule,delayed release (Cymbalta) 60 mg PO DAILY depression 10/06/21 byqiholv-kbz-wdshg acid 0.4 mg-lycopene 300 mcg-lutein 250 mcg tablet (Centrum Silver) 1 tab PO DAILY vitamin 10/06/21 acetaminophen 500 mg tablet 1,000 mg PO TID PRN fever or pain 10/23/21 calcium carbonate (Antacid (calcium carbonate)) 400 mg PO DAILY 04/01/23 juxta lite #2 ea 04/01/23 arm brace #1 ea 04/13/23 arm brace #1 ea 04/15/23 sumatriptan succinate 25 mg tablet (Imitrex) See Rx Instructions PO .COMPLEX #14 tabs 02/02/24 alendronate 70 mg tablet 70 mg PO QWEEK #14 tabs 08/06/24 ergocalciferol (vitamin D2) 1,250 mcg (50,000 unit) capsule 1,250 mcg PO QWEEK vitamin #20 caps 08/06/24 apixaban 5 mg tablet (Eliquis) 5 mg PO BID 30 days #60 tabs 08/09/24 cephalexin 500 mg capsule 500 mg PO BID 5 days #10 caps 08/09/24 levothyroxine 175 mcg tablet 175 mcg PO DAILY 30 days #30 tabs 08/09/24 metoprolol tartrate 25 mg tablet 25 mg PO BID 30 days #60 tabs 08/09/24 Hospital Course Procedures Transthoracic echo Summary of Care Provided Minutes Spent on Discharge: 33 Hospital Course: Per HPI BERNARD ENG, is a 79-year-old female history of hypothyroidism, PAM, morbid obesity, anxiety and depression who presented [facility] ED 08/08/2024 with daughter with complaint of feeling ill and having a cough for 4 weeks but did not have COVID, influenza, RSV or pneumonia. Symptoms had resolved but over the past week she has now been complaining of cough, congestion, and shortness of breath as well as pain in the right shoulder. Patient also weak and having difficulty getting around due to her myalgias, shortness of breath, fatigue so she was brought in for evaluation. In the ED heart rate initially 125 with blood pressure 162/85, respiratory rate 20, pulse ox 97% on room air. Heart rate appeared fib/flutter which is new for her and she converted to sinus rhythm with diltiazem when she was started on metoprolol and Eliquis. White blood cell count was 15 and chest x-ray queried pneumonia however CTA showed no PE and did not comment on any evidence of pneumonia. While in the ED patient's oxygen went down to 85% on room air and she was placed on 2 L saturating very well, she was given steroids and breathing treatments and hospitalist contacted for admission. Patient evaluated at bedside with daughter present who provided most with history. Patient had not been feeling well for about 4 weeks but symptoms resolved, this past week she has had some more shortness of breath with dry cough, muscle aches, fatigue and weakness also stuffy nose and has been having more aching in her right shoulder. Also reports yeastlike rash under her left breast, no fevers noted, no new bowel or bladder complaints, has chronic lymphedema in her legs but this is actually improved over time and it is being wrapped appropriately. Patient's daughter confirms no history of A-fib, also patient has sleep apnea and wears her CPAP about 4 hours a night when she is in bed. Denies any history of COPD or asthma INTERVAL HISTORY: Patient significantly improved with control of her heart rate with metoprolol and by the following day was at or very close to baseline and was able to get up and ambulate in the halls, shortness of breath returned to baseline and patient's cough also resolved with improvement of her heart rate. Viral panels and pulmonary workup negative, suspect that the shortness of breath and cough are cardiac in nature. Repeat echo that was ordered on admission showed EF of 60% and no regional wall motion abnormalities. Patient did have increased proBNP but has not had a normal BNP in our system and there is no previous proBNP for comparison, CTA did not report out any vascular congestion or edema and patient completely improved with no need for O2 with control of heart rate and never received nor required IV Lasix. Query if some of the new onset A-fib/flutter with RVR is due to patient taking the Synthroid before her other medications and on an empty stomach, something she had not realize she needed to do previously, and now her TSH is low. Her Synthroid was decreased slightly. Patient feeling so much better and her and daughter are comfortable with her going home. Patient improved much faster than anticipated. Of note patient had increase in white blood cell count however she did receive steroids in the ED due to the shortness of breath unclear etiology. Patient's UA only mildly suspicious of UTI but given patient's significant improvement without antibiotics it was felt that this was likely not a cause or contributor however patient's culture is growing presumptive E. coli, discussed with patient and her daughter and will send patient on Keflex 500 mg twice daily for 5 days. All questions answered and patient discharged back to independent living in stable condition. Discharge instructions as follows: -You were found to have atrial fibrillation with fast rate upon arrival to the emergency department, this improved with metoprolol which she will be discharged on and you will also be started on a blood thinner, Eliquis, given this new diagnosis -Additionally your Synthroid was decreased based on your low TSH, will need to follow with your primary care physician ultimately this will need to be rechecked to assess for any further titration necessary -If you would like to establish with a financial compliance officer given your new onset atrial fibrillation, contact information as below -Please call your primary care provider's office upon discharge to schedule a hospital follow up within 1 week. -For any concerning signs or symptoms please call 911 or proceed to the nearest emergency department Physical Exam Narrative General: Alert, oriented, no apparent distress HEENT: Atraumatic, normocephalic Eyes: Anicteric, normal conjunctiva, extraocular movements grossly intact Neck: Supple Respiratory: Normal respiratory effort without any wheezes or rhonchi appreciated Cardiovascular: Regular rate GI: Soft, nontender, nondistended Extremities: No significant pitting edema, some chronic lower extremity edema which is improved from previous hospitalization Musculoskeletal: Moving all extremities Neuro: No overt focal neurological deficits Skin: No rashes appreciated Psych: Cooperative Weight / BMI Weight Weight: 143.2 kg Body Mass Index (BMI) 54.1 ABG / Lab / Microbiology Data 08/09/24 04:21 08/09/24 04:21 Laboratory: Laboratory Results - last 24 hr 08/09/24 04:21: WBC 18.3 H, RBC 3.34 L, Hgb 10.5 L, Hct 32.9 L, MCV 98.5, MCH 31.4, MCHC 31.9 L, RDW Std Deviation 47.8 H, RDW Coeff of Stephanie 13.4, Plt Count 344, MPV 11.2, Immature Gran % (Auto) 0.600, Neut % (Auto) 86.5 H, Lymph % (Auto) 7.6 L, [place] % (Auto) 5.1, Eos % (Auto) 0.1, Baso % (Auto) 0.1, Absolute Neuts (auto) 15.8 H, Absolute Lymphs (auto) 1.38, Nucleated RBC % 0, Sodium 137, Potassium 4.4, Chloride 105, Carbon Dioxide 19.8 L, Anion Gap 12, BUN TNP, Creatinine 1.12, Estim Creat Clear Calc 57.93, Est GFR (MDRD) Non-Af 50 L, BUN/Creatinine Ratio UNABLE TO CALCULATE L, Glucose 153 H, Calcium 8.6 08/09/24 06:55: BUN Cancelled, Creatinine Cancelled, Estim Creat Clear Calc Cancelled, Est GFR (MDRD) Non-Af Cancelled Microbiology: Microbiology 08/08/24 14:24 Urine, Clean Catch Urine Culture - Preliminary Presumptive E. coli 08/08/24 13:07 Mucosa - Nose Respiratory Panel (PCR) - Final 08/08/24 07:00 Mucosa - Nose SARS-CoV-2, Influenza & RSV (PCR) - Final Radiography Diagnostic Testing: Radiology Impression Echocardiogram 08/08/24 10:08 Interpretation Summary The estimated ejection fraction is 60 %. Unable to assess diastolic dysfunction. There is mild biatrial dilatation. Ordering Physician: Natalia Robison Referring Physician: Calista Yeh Performed By: Mecca Miller RDCS, RVT D/C Instructions Discharge Diet: No restrictions DC O2, CPAP, BIPAP Needs Home O2 Discharge instructions: No Meaningful Use Info Meaningful Use Meaningful Use Diagnoses (Choose all that apply): None applicable Ischemic Stroke Statin Dosing Therapy Reference: STATIN DOSE THERAPY REFERENCE: * Patients > 75 years receive moderate or high dose statin therapy. * Patients 75 years or YOUNGER should receive HIGH intensity statin dose unless contraindicated. You will be required to document reason for non-treatment if statin daily dose does not meet guidelines. HIGH DOSE STATIN THERAPY DAILY Atorvastatin > than or = to 40 mg Rosuvastatin > than or = to 20 mg Amlodipine + Atorvastatin > than or = to 2.5/40 mg Ezetimibe + Simvastatin 10/80 mg Simvastatin 80mg Discharge Plan Admission Admit Date/Time: 08/08/24 09:59 Primary Reason for Your Visit: Cough and shortness of breath Attending Provider: Natalia Robison Primary Care Provider: Calista Yeh Instructions Patient Instructions: AFib Dc Additional Instructions / Restrictions: DISCHARGE INSTRUCTIONS PLEASE READ *Please take this with you to your next doctors appointment* -You were found to have atrial fibrillation with fast rate upon arrival to the emergency department, this improved with metoprolol which she will be discharged on and you will also be started on a blood thinner, Eliquis, given this new diagnosis -Additionally your Synthroid was decreased based on your low TSH, will need to follow with your primary care physician ultimately this will need to be rechecked to assess for any further titration necessary -If you would like to establish with a financial compliance officer given your new onset atrial fibrillation, contact information as below -Please call your primary care provider's office upon discharge to schedule a hospital follow up within 1 week. -For any concerning signs or symptoms please call 911 or proceed to the nearest emergency department Discharge Orders/Prescriptions Prescriptions: New Eliquis 5 mg Tablet 5 mg PO BID 30 Days Qty: 60 0RF levothyroxine 175 mcg Tablet 175 mcg PO DAILY 30 Days Qty: 30 0RF Rx Instructions: To replace to 200 mcg prescription metoprolol tartrate 25 mg Tablet 25 mg PO BID 30 Days Qty: 60 0RF cephalexin 500 mg capsule 500 mg PO BID 5 Days Qty: 10 0RF Continued duloxetine [Cymbalta] 60 mg capsule,delayed release(DR/EC) 60 mg PO DAILY aspirin [Adult Low Dose Aspirin] 81 mg tablet,delayed release (DR/EC) 81 mg PO DAILY Centrum Silver 0.4 mg-300 mcg- 250 mcg tablet 1 tab PO DAILY acetaminophen 500 mg tablet 1,000 mg PO TID PRN (Reason: fever or pain) calcium carbonate [Antacid (calcium carbonate)] 200 mg calcium (500 mg) tablet,chewable 400 mg PO DAILY (DME) juxta lite See Rx Instructions .Route .MEDSUPPLY Qty: 2 3RF Rx Instructions: 20 -30 mmHg (DME) arm brace Misc See Rx Instructions .Route Qty: 1 0RF Rx Instructions: left wrist brace, wear at night (DME) arm brace Misc See Rx Instructions .Route Qty: 1 0RF Rx Instructions: Right wrist brace, wear at night sumatriptan succinate [Imitrex] 25 mg tablet See Rx Instructions PO .COMPLEX Qty: 14 1RF Rx Instructions: take 1 tab at onset of headache; if no relief may repeat 1 tab after at least 2 hrs; max = 4 tabs/24 hr PO ergocalciferol (vitamin D2) 1,250 mcg (50,000 unit) capsule 1,250 mcg PO QWEEK Qty: 20 1RF alendronate 70 mg tablet 70 mg PO QWEEK Qty: 14 1RF Discontinued celecoxib [Celebrex] 200 mg capsule 200 mg PO DAILY cephalexin 500 mg Capsule 500 mg PO Q6 7 Days Qty: 0 0RF levothyroxine [Synthroid] 200 mcg tablet 200 mcg PO DAILY Qty: 120 1RF Rx Instructions: Take 200 mcg daily on 6 days and 300 mcg on 1 day Referrals / Follow Up: Calista Yeh MD [Primary Care Provider] - Within 1 Week Lan Jama MD [Med Staff - Active Staff] - (If you would like to establish with the cardiology office. New onset atrial fibrillation you can contact the office and establish with any available provider) Disposition Disposition (needs filled in before D/C Order can be placed): Home Health Service Charges/Coding Visit Charges Inpatient E&M: 52560 Disch Hosp >30min
--- NOTE | 2024-08-09 15:03 | CASEMGMT ---
JOÃO DHILLON note: DC order is in. RN CM to room. Pt sitting up in recliner chair, dtr @ bedside. Rx's have been sent to [facility], one of which is Terry. Pt and dtr provided w/30-day free-trial offer card and instructed on use. Made aware this is a gxqz-zx-a-lifetime use card. Pt to f/u with PCP if refills are not affordable. They can mushroom picker the Rx's today from [facility]. They are aware Script for OP therapy has been faxed to [facility]. Dtr states [facility] therapy is already scheduled to come to pt's home tomorrow. They are aware pt to f/u with PCP in 1 week. They deny having further discharge needs or concerns. Roseanna OGDEN RN CM
--- NOTE | 2024-08-09 15:10 | PHA.DC_ITS ---
Pharmacy [facility] has performed discharge medication reconciliation and counseling for this patient. 1. APIXABAN 5MG PO BID 2. METOPROLOL TARTRATE 25MG PO BID 3. LEVOTHYROXINE DOSE DECREASED TO 175MCG 4. STOP CELEBREX, RECOMMENDED TYLENOL 1000MG PO Q8 UNTIL SEES PCP PT TAKES CELEBREX FOR ARTHRITIS The patient's discharge medication list was reviewed for discrepancies and discrepancies were resolved. The patient was counseled on the following discharge medications and changes in medications for homegoing were reviewed. The Reason for Use, instructions for use, and potential side effects were reviewed for all new medications. The patient's questions regarding all of their medications were answered. The patient was able to verbally demonstrate an understanding of their discharge medications. Medications at Discharge Home Medications aspirin 81 mg tablet,delayed release (Adult Low Dose Aspirin) 81 mg PO DAILY heart health 10/06/21 duloxetine 60 mg capsule,delayed release (Cymbalta) 60 mg PO DAILY depression 10/06/21 sevyntos-pot-ufbyu acid 0.4 mg-lycopene 300 mcg-lutein 250 mcg tablet (Centrum Silver) 1 tab PO DAILY vitamin 10/06/21 acetaminophen 500 mg tablet 1,000 mg PO TID PRN fever or pain 10/23/21 calcium carbonate (Antacid (calcium carbonate)) 400 mg PO DAILY 04/01/23 juxta lite #2 ea 04/01/23 arm brace #1 ea 04/13/23 arm brace #1 ea 04/15/23 sumatriptan succinate 25 mg tablet (Imitrex) See Rx Instructions PO .COMPLEX #14 tabs 02/02/24 alendronate 70 mg tablet 70 mg PO QWEEK #14 tabs 08/06/24 ergocalciferol (vitamin D2) 1,250 mcg (50,000 unit) capsule 1,250 mcg PO QWEEK vitamin #20 caps 08/06/24 apixaban 5 mg tablet (Eliquis) 5 mg PO BID 30 days #60 tabs 08/09/24 levothyroxine 175 mcg tablet 175 mcg PO DAILY 30 days #30 tabs 08/09/24 metoprolol tartrate 25 mg tablet 25 mg PO BID 30 days #60 tabs 08/09/24
--- NOTE | 2024-08-11 17:16 | PCM.HOSP.N ---
Hospitalist Note Patient's urine culture resulted, organism better covered by [facility], for patient was discharged discussed that he may need to contact them about urine culture results and sensitivities, was advised to call the number on chart. Called both contact numbers with no answer, subsequently called (listed as patient notification) and left brief message that a new antibiotic with better coverage was sent into the [place] pharmacy
== END 2024-08-09 15:48 | disposition home health service (06) | DRG 309 ==
LOC: ED 09:39 → PCU 10:06
PROVIDERS: Admitting Provider Internal Medicine; Emergency Provider Emergency Medicine; PCP Internal Medicine; Visit Provider Internal Medicine
DX: I48.91 Unspecified atrial fibrillation (principal); Z68.43 Body mass index [BMI] 50.0-59.9, adult; N39.0 Urinary tract infection, site not specified; E03.9 Hypothyroidism, unspecified; F32.A Depression, unspecified; E66.01 Morbid (severe) obesity due to excess calories; G47.33 Obstructive sleep apnea (adult) (pediatric); F41.9 Anxiety disorder, unspecified; G89.29 Other chronic pain; Z79.82 Long term (current) use of aspirin
CPT/HCPCS: 36415; 71045; 71275; 80048; 81001; 83735; 83880; 84443; 85025; 85610; 85730; 87086; 87088; 87186; 87631; 87633; 93005; 93308; 94640; 97116; 97162; 97166; 97530; 99285; Q9957; Q9967; A4216; C8924; J2405

== ENCOUNTER → 2024-09-25 | Outpatient (CLI) | payer MEDICARE, OTHER, SELFPAY | END | disposition home or self-care (01) | LOC: SL 20:23 | PROVIDERS: PCP Internal Medicine; Referring Provider Internal Medicine; Visit Provider Internal Medicine | DX: G47.33 Obstructive sleep apnea (adult) (pediatric) (principal) | CPT/HCPCS: 95810 ==

== ENCOUNTER 2024-10-03 14:47 | Outpatient (RCR) | payer MEDICARE, OTHER, SELFPAY ==
--- NOTE | 2024-10-04 08:25 | HP.OTEVAL ---
Patient's Visit Information Visit Information Visit Information: BERNARD ENG is a 79 year old F, referred to Occupational Therapy by Dr. Calista Yeh MD, with a diagnosis of lymphedema. Date of Evaluation: 09/27/24 Occupational Therapist: Saima Harper, OTR/Rnona, CHT Subjective Subjective: This 79-year-old female was seen for OT eval with dx of Lymphedema. Pt arrives with Dtr with concerns her Velcro closure compression garment is getting too large or it is stretching out and they are sliding down. Dtr states she is comfortable with her wraps, and they are easy for caregivers to put on and take off for Bernard. pt states she removes the compression garment for sleeping- she states she sleeps in her recliner has assistance with ADLs ADLs Comments: pt states she has help from staff at [facility] to assist her or her dtrs. Lymphedema (Circumferential Measure) Mid-foot: right 24cm left 23cm Ankle: right 27cm left 28cm Lower calf: right 25cm left 28cm Largest calf: right 42cm left 46cm Below knee: right 46cm left 49cm Goals Goal: Patient will select an appropriate compression garment and demonstrate adequate knowledge of correct donning technique, care and wearing schedule by discharge.: Yes Goal: Patient will voice understanding of need to replace compression garment every four to six months by discharge.: Yes Goal:: family to order compression garment. Family to call if she has questions or concerns. Rehabilitation General Assessment: pt demo a reduction in bilateral LE edema. pt and dtr arrives to session with compression alternatives on bilateral LE. Pts limb size has reduced so pts sigvaris compression garments are sliding down. Pt arrives to session for new measurements to see if she can fit in smaller size compression garment. Pts dtr took measurements and will order new smaller garment for pt. Pts and pts family stated they would call if they had questions or concerns. Rehabilitation Potential: Good Anticipated Interventions Anticipated Interventions: Education re Life-long lymphedema Management, Education re Self-Bandaging Techniques, Education re Skin Care and Precautions, Education re Correct Donning Tech,Care&Wearing Sched Comp Garments, Caregiver Training and Home Program Visit Plan General Plan: fitting for velcro compression garment for bilateral LE dtr to order family and staff at [facility] will etta and doff TEXT: Thank you for the opportunity to evaluate your patient. For Medicare and Medicare HMO plans, please review the plan of care and approve it. It will need to be FAXED BACK to us at [phone] for Medicare purposes. Please let me know if there are questions or concerns regarding this plan of care. Physician Signature: Date:
--- NOTE | 2025-01-31 09:29 | HP.OT.NRP ---
Patient Information Patient Information: BERNARD ENG was seen in my office for initial evaluation on 09/27/24. The following Plan of Care was established for this patient: Anticipated Interventions Anticipated Interventions: Education re Life-long lymphedema Management, Education re Self-Bandaging Techniques, Education re Skin Care and Precautions, Education re Correct Donning Tech,Care&Wearing Sched Comp Garments, Caregiver Training and Home Program Last Seen Last Seen: This patient was last seen in our office 10/03/24. Pertinent comments regarding their Occupational therapy will appear below: No further apts have been scheduled and due to time lapse in services pt is d/c. At this point I will be discontinuing this patient from occupational therapy. I would be happy to see this patient again in the future if found appropriate by the physician. Thank you! Saima Harper, OTR/L, CHT
== END 2024-10-23 19:00 | disposition home or self-care (01) ==
LOC: OT 14:47
PROVIDERS: PCP Internal Medicine; Referring Provider Internal Medicine; Visit Provider Internal Medicine
DX: I89.0 Lymphedema, not elsewhere classified (principal)
CPT/HCPCS: 97166

== ENCOUNTER → 2024-10-08 | Outpatient (CLI) | payer MEDICARE, OTHER, SELFPAY ==
[2024-10-08 18:06] LABS: Absolute Lymphocyte Count 3.38 X10^3/uL (0.83-4.51); Absolute Neutrophil Count 3.7 X10^3/uL (2.0-7.7); Basophil% 1.1 % (0-1); Eosinophil# 0.89 X10^3/uL; Eosinophils% 9.6 % (0-5); Hematocrit 39.1 % (37-47); Hemoglobin 12.2 g/dL (12.0-15.0); Lymphocyte # 3.38 X10^3/ul (0.83-4.51); Lymphocyte % 36.5 % (19-41); Mean Corp Hgb Conc 31.2 g/dL (32-36); Mean Corpuscular Volume 102.6 fL (81-99); Mean Platelet Vol. 10.9 fl (6.2-12.0); Monocyte% 12.9 % (0-10); NRBC Flagged by Analyzer 0 % (0-5); Neutrophil # 3.68 X10^3/uL (2.7-7.7); Neutrophil % 39.7 % (47-70); Platelet Count 322 K/mm3 (150-450); RBC Distribution Width CV 13.3 % (11.6-14.6); RBC Distribution Width SD 50.4 fl (35.1-43.9); Red Blood Count 3.81 M/mm3 (4.2-5.4); White Blood Count 9.3 K/mm3 (4.4-11.0)
[2024-10-08 20:06] LABS: ALB/GLOB Ratio 1.1 RATIO (0.9-2.4); AST(SGOT) 23 U/L (<=31); Alanine Aminotransfer ALT/SGPT 20 U/L (<=34); Albumin, Serum 3.8 g/dL (3.4-4.8); Alkaline Phosphatase 49 U/L (35-104); Anion Gap 13 (5-15); BUN 32 mg/dL (4-19); BUN/Creat Ratio 25.2 RATIO (10-20); Calcium,Total 9.3 mg/dL (7.6-11.0); Carbon Dioxide 21.4 mmol/L (21.0-32.0); Chloride 105 mmol/L (98-108); Creatinine, Serum 1.28 mg/dL (0.70-1.20); EST Glomerular Filtration Rate 43 (>60); Globulin 3.5 g/dL (2.2-4.2); Glucose 60 mg/dL (70-99); Magnesium 2.5 mg/dL (1.5-2.2); Potassium 4.8 mmol/L (3.3-5.1); Protein, Total 7.3 g/dL (5.9-8.4); Sodium Level 140 mmol/L (133-145); Total Bilirubin 0.22 mg/dL (0.00-1.30)
== END | disposition home or self-care (01) ==
LOC: MTLAB 16:08
PROVIDERS: PCP Internal Medicine; Referring Provider Physician Assistant; Visit Provider Physician Assistant
DX: E03.9 Hypothyroidism, unspecified (principal); I48.0 Paroxysmal atrial fibrillation; D64.9 Anemia, unspecified
CPT/HCPCS: 36415; 80053; 83735; 84439; 84443; 85025

== ENCOUNTER → 2024-11-22 | Outpatient (CLI) | payer MEDICARE, OTHER, SELFPAY ==
--- NOTE | 2024-11-22 13:00 | BD_ITS ---
PROCEDURE: DEXA BONE DENSITY STUDY 11/22/2024 REASON FOR EXAM: OSTEOPOROSIS F, age 79 y/o . Postmenopausal. TECHNIQUE: DEXA BONE DENSITY STUDY COMPARISON: None FINDINGS: BMD and T-SCORES Lumbar spine: 1.135 g/cm2, T-score 0.8 Levels: L1 through L4 Left femoral neck: 0.571 g/cm2, T-score -2.5 Femoral neck comparison data not recommended for monitoring change. Left total hip: 0.745 g/cm2, T-score -1.6 Right femoral neck: 0.627 g/cm2, T-score -2.0 Femoral neck comparison data not recommended for monitoring change. Right total hip: 0.743 g/cm2, T-score -1.6 The World Health Organization has defined the following categories based on bone density: Normal bone density: T-score equal to or greater than -1.0 Osteopenia: T-score between -1.0 and -2.5 Osteoporosis: T-score equal to or less than -2.5 The patient does meet the pharmacological treatment recommendations for prevention of osteoporosis. BD/Dexa Bone Density Study IMPRESSION: OSTEOPENIA. Recommend follow-up as clinically warranted. Reading Location: [facility]
--- NOTE | 2024-11-22 13:30 | BI_ITS ---
EXAM: SCRN MAMM (CAD)W/APURVA BILAT DATE: 11/22/2024 CLINICAL HISTORY: F, Age 79 y/o , BREAST CANCER SCREENING No family history. TECHNIQUE: SCRN MAMM (CAD)W/APURVA BILAT COMPARISON: Prior exam(s) dated none available for comparison at this time.. FINDINGS: TISSUE DENSITY: There are scattered areas of fibroglandular density. Bilateral Breast Mammographic Findings: No significant masses, calcifications or other abnormalities are identified. BI/SCRN MAMM (CAD)W/APURVA BILAT IMPRESSION: No suspicious abnormality is seen. OVERALL FINAL ASSESSMENT BI-RADS 1: NEGATIVE. RECOMMEND ANNUAL MAMMOGRAPHIC SCREENING. RECOMMENDATION: Routine annual follow-up in 1 Year A letter with findings and recommendations will be mailed to the patient. Reading Location: [id number]
== END | disposition home or self-care (01) ==
LOC: OPBD 12:52
PROVIDERS: PCP Internal Medicine; Referring Provider Internal Medicine; Visit Provider Internal Medicine
DX: Z12.31 Encounter for screening mammogram for malignant neoplasm of breast (principal); M81.0 Age-related osteoporosis without current pathological fracture
CPT/HCPCS: 77063; 77067; 77080

== ENCOUNTER → 2025-02-04 | Outpatient (CLI) | payer MEDICARE, OTHER, SELFPAY ==
[2025-02-04 15:06] LABS: Hematocrit 40.0 % (37-47); Hemoglobin 12.6 g/dL (12.0-15.0); Immature Granulocytes Count 0.040 X10^3/uL (0.0-0.0); Mean Corp Hgb Conc 31.5 g/dL (32-36); Mean Corpuscular Volume 101.3 fL (81-99); Mean Platelet Vol. 11.2 fl (6.2-12.0); NRBC Flagged by Analyzer 0 % (0-5); Platelet Count 386 K/mm3 (150-450); RBC Distribution Width CV 13.1 % (11.6-14.6); RBC Distribution Width SD 49.0 fl (35.1-43.9); Red Blood Count 3.95 M/mm3 (4.2-5.4); White Blood Count 11.1 K/mm3 (4.4-11.0)
[2025-02-04 15:55] LABS: AST(SGOT) 21 U/L (<=31); Alanine Aminotransfer ALT/SGPT 13 U/L (<=34); Albumin, Serum 3.7 g/dL (3.4-4.8); Alkaline Phosphatase 53 U/L (35-104); Anion Gap 11 (5-15); BUN 21 mg/dL (4-19); BUN/Creat Ratio 17.0 RATIO (10-20); Calcium,Total 9.3 mg/dL (7.6-11.0); Carbon Dioxide 22.9 mmol/L (21.0-32.0); Chloride 107 mmol/L (98-108); Globulin 3.3 g/dL (2.2-4.2); Glucose 87 mg/dL (70-99); Potassium 4.4 mmol/L (3.3-5.1); Vitamin B12 396 pg/mL (180-914); Vitamin D,25 Hydroxy 44.3 ng/mL (30-100)
== END | disposition home or self-care (01) ==
LOC: BIMLAB 12:05
PROVIDERS: PCP Internal Medicine; Referring Provider Internal Medicine; Visit Provider Internal Medicine
DX: E03.9 Hypothyroidism, unspecified (principal); E55.9 Vitamin D deficiency, unspecified
CPT/HCPCS: 36415; 80053; 82306; 82607; 84443; 85025